=== PATIENT | male | born 1955 | race Caucasian/White ===

== ENCOUNTER 2019-04-17 10:37 | Day surgery (SDC) | payer BC ==
[2019-04-16 09:47] VITALS: BMI 25.3
[2019-04-17 11:54] LABS: #Eosinphils 0.1 thou/uL (0.0-0.7); #Lymphocytes 0.9 thou/uL (1.20-3.40); #Neutrophils 10.4 thou/uL (1.40-6.50); %Basophils 0.2 % (0.0-1.0); %Eosinophils 0.6 % (0.0-10.0); %Lymphocytes 6.9 % (21.0-51.0); %Neutrophils 84.2 % (42.0-75.0); Hemoglobin 15.4 g/dL (14.0-18.0); Mean Corpuscular HGB CONC 34.7 g/dL (32.0-36.0); Mean Corpuscular Hemoglobin 30.3 pg (27.0-31.0); Mean Corpuscular Volume 87.4 fL (78.0-98.0); Mean Platelet Volume 6.9 fL (7.4-10.4); Platelet Count 456 thou/uL (130-400); RBC Distribution Width 11.5 % (11.5-14.5); Red Blood Cell (RBC) Count 5.07 mill/uL (4.70-6.10); White Blood Cell (WBC) Count 12.4 thou/uL (4.8-10.8)
[2019-04-17] MEDS ORDERED: Ondansetron PF 4 MG/2 ML Vial ONE (11:59)
[2019-04-17] MEDS ORDERED: Ketorolac Tromethamine 30 MG/ML VIAL ONE (11:59)
[2019-04-17] MEDS ORDERED: Scopolamine 1.5 mg/72 hour Patch ONE (11:59)
[2019-04-17 12:14] LABS: Anion Gap 13 mmol/L (10-20); BUN (Urea Nitrogen) 20 mg/dL (8.4-25.7); Calc. Creatinine Clearance 106 mL/min (70-130); Calcium 9.3 mg/dL (7.8-10.44); Carbon Dioxide 28 mmol/L (23-31); Chloride 95 mmol/L (98-107); Estimated GFR-MDRD 88; Glucose 174 mg/dL (80-115); Potassium 3.3 mmol/L (3.5-5.1); Sodium 133 mmol/L (136-145)
[2019-04-17] MEDS ORDERED: Lidocaine 1% (PF) 30 ML VIAL ONE (13:07)
[2019-04-17] MEDS ORDERED: Bupivacaine/Epinephrine 0.25% 30 ML VIAL ONE (13:07)
[2019-04-17] MEDS ORDERED: Propofol 500 MG/50 ML VIAL ONE (13:15)
[2019-04-17] MEDS ORDERED: Fentanyl 100 MCG/2 ML VIAL ONE (13:15)
[2019-04-17] MEDS ORDERED: Midazolam HCl 2 mg/2 ml Vial ONE (13:15)
--- NOTE | 2019-04-17 14:29 | RAD ---
Chest one view HISTORY: Mediport placement. FINDINGS: No comparison. Cardiac silhouette is magnified by projection. Pulmonary vasculature accentu ated by shallow inspiration. Tip of a right subclavian Mediport projects over the cavoatrial junction. No evidence of pneumothorax. Ill-defined parenchymal opacity overlies the right posterior s uprahilar level. Possible atelectasis at the left posterior lung base. IMPRESSION: Right subclavian Mediport in good radiographic position without evidence of complication. Bilateral parenchymal opacities. Infiltrate versus atelectasis. Consider short-term radiographic foll ow-up with upright PA and lateral views of the chest when patient can undergo that exam.
[2019-04-17] MEDS ORDERED: PROPOFOL 200 MG/20 ML VIAL ONE (16:20)
[2019-04-17] MEDS ORDERED: Lidocaine 1% PF 5 ML VIAL ONE (16:20)
--- NOTE | 2019-04-20 13:50 | OP ---
DATE OF PROCEDURE: 04/17/2019 PREOPERATIVE DIAGNOSIS: Metastatic gastric cancer. POSTOPERATIVE DIAGNOSIS: Metastatic gastric cancer. PROCEDURE PERFORMED: Placement of a right subclavian power compatible MediPort. ANESTHESIA: General endotracheal. INDICATIONS: The patient is a 64-year-old white male. He has metastatic unresectable gastric cancer. He presents at this time for MediPort placement for chemotherapy administration. DESCRIPTION OF OPERATION: Informed consent was obtained. The patient was taken to the operating room where total intravenous anesthesia was obtained with the patient in supine position. Right periclavicular area was prepped with ChloraPrep and draped in sterile fashion. Local anesthetic was infiltrated and a large-gauge needle was passed under the clavicle in the subclavian vein. Guidewire was passed through the needle and fluoroscopically confirmed to enter the superior vena cava. Additional local anesthetic was infiltrated and transverse incision was created based on needle insertion site. A subcutaneous pocket was dissected inferiorly. Introducer dilator was passed over the guidewire under fluoroscopic guidance. The guidewire and dilator were removed, and the catheter was passed through the introducer. The tip of the catheter was positioned at the atriocaval junction and the catheter was trimmed to the appropriate length and secured to the locking hub of the MediPort. The port was then placed in the subcutaneous pocket where it was secured to the pectoral fascia with 2 interrupted sutures of 3-0 Prolene. The incision was then closed in layers with 3-0 and 4-0 Monocryl. Additional local anesthetic was infiltrated. The port was cannulated with a Tejeda needle and it aspirated blood freely and was flushed with heparinized saline. Dermabond was placed externally on the skin incision. There were no complications. Blood loss was negligible. The patient tolerated the procedure well and was taken to recovery room in stable condition. FINDINGS: I placed a low-profile power compatible MediPort in the right subclavian vein. The procedure was uneventful. Fluoroscopy was used during the placement. There was essentially no blood loss. Job ID: [id number]
== END 2019-04-17 15:15 | disposition home or self-care (01) ==
LOC: SDC 10:37
PROVIDERS: ATTEND Specialist
PROC: 02HV33Z Insertion of Infusion Device into Superior Vena Cava, Percutaneous Approach (ICD-10-PCS; principal; 2019-04-17)
DX: C16.9 Malignant neoplasm of stomach, unspecified (principal); C79.9 Secondary malignant neoplasm of unspecified site; M19.90 Unspecified osteoarthritis, unspecified site; I10 Essential (primary) hypertension; G47.30 Sleep apnea, unspecified; E11.9 Type 2 diabetes mellitus without complications; Z79.84 Long term (current) use of oral hypoglycemic drugs; Z79.899 Other long term (current) drug therapy; Z88.5 Allergy status to narcotic agent
CPT/HCPCS: 36415; 71045; 80048; 85025; 93005; 93010; C1788; J0131; J0690; J1642; J1885; J2001; J2250; J2405; J2704; J3010

== ENCOUNTER 2019-04-25 13:43 | Emergency (ER) | payer BC ==
[2019-04-25] MEDS ORDERED: Ondansetron PF 4 MG/2 ML Vial ONE (14:35)
== END 2019-04-25 16:11 | disposition home or self-care (01) ==
LOC: SCSER 13:43
DX: E86.0 Dehydration (principal); R11.2 Nausea with vomiting, unspecified; I10 Essential (primary) hypertension; Z79.899 Other long term (current) drug therapy
CPT/HCPCS: 96361; 96374; J2405

== ENCOUNTER 2019-05-09 22:18 | Inpatient (IN) | payer BC ==
[2019-05-09] MEDS ORDERED: Ondansetron PF 4 MG/2 ML Vial ONE (23:03)
[2019-05-09 23:11] LABS: ALT (SGPT) 30 U/L (8-55); AST (SGOT) 26 U/L (5-34); Albumin 3.5 g/dL (3.4-4.8); Alkaline Phosphatase 94 U/L (40-150); Anion Gap 19 mmol/L (10-20); BUN (Urea Nitrogen) 25 mg/dL (8.4-25.7); Bilirubin, Total 0.9 mg/dL (0.2-1.2); Calc. Creatinine Clearance 0 mL/min (70-130); Calcium 9.3 mg/dL (7.8-10.44); Carbon Dioxide 22 mmol/L (23-31); Chloride 102 mmol/L (98-107); Estimated GFR-MDRD Greater than 90; Globulin 3.1 g/dL (2.4-3.5); Glucose 203 mg/dL (80-115); Lipase 54 U/L (8-78); Potassium 4.4 mmol/L (3.5-5.1); Protein, Total 6.6 g/dL (5.8-8.1); Sodium 139 mmol/L (136-145)
[2019-05-09 23:12] LABS: #Basophils 0.1 thou/uL (0.0-0.2); #Lymphocytes 0.7 thou/uL (1.20-3.40); #Monocytes 0.7 thou/uL (0.11-0.59); %Basophils 0.8 % (0.0-1.0); %Eosinophils 0.1 % (0.0-10.0); %Lymphocytes 6.3 % (21.0-51.0); %Neutrophils 85.8 % (42.0-75.0); Hemoglobin 14.7 g/dL (14.0-18.0); Mean Corpuscular HGB CONC 33.7 g/dL (32.0-36.0); Mean Corpuscular Hemoglobin 29.2 pg (27.0-31.0); Mean Corpuscular Volume 86.6 fL (78.0-98.0); Mean Platelet Volume 6.1 fL (7.4-10.4); Platelet Count 372 thou/uL (130-400); RBC Distribution Width 12.2 % (11.5-14.5); Red Blood Cell (RBC) Count 5.04 mill/uL (4.70-6.10); White Blood Cell (WBC) Count 10.5 thou/uL (4.8-10.8)
[2019-05-09] MEDS ORDERED: Promethazine HCl 25 MG/ML VIAL ONE (23:42)
[2019-05-09] MEDS ORDERED: Haloperidol Lactate 5 MG/ML VIAL ONE (23:53)
[2019-05-10] MEDS ORDERED: Ondansetron PF 4 MG/2 ML Vial IVP PRN ×5 (01:32→15:00)
[2019-05-10] MEDS ORDERED: Ondansetron ODT 4 MG TAB SL PRN (01:32)
[2019-05-10] MEDS ORDERED: Promethazine HCl 25 MG/ML VIAL IM/IV PRN ×3 (01:40→14:17)
[2019-05-10] MEDS ORDERED: Sodium Chloride 0.9% 1,000 ML IV SCH (01:45)
[2019-05-10] MEDS ORDERED: Dextrose 5% in Water 1,000 ML IV PRN (01:59)
[2019-05-10] MEDS ORDERED: Dextrose 50% Abboject 50 ML SYRINGE SLOW IVP PRN (01:59)
--- NOTE | 2019-05-10 02:08 | PDOC.EVN ---
Event Note - Event Note Event Note: [id number] H&P dictated
[2019-05-10] MEDS: Metoclopramide HCl 10 MG/2 ML VIAL IVP PRN ×3 (02:12→20:51)
[2019-05-10] MEDS: Dextrose 5 % And 0.9 % NaCl 1,000 ML IV SCH ×4 (02:12→23:30)
--- NOTE | 2019-05-10 02:47 | HP ---
CHIEF COMPLAINT: Intractable vomiting. HISTORY OF PRESENT ILLNESS: Mr. Ernandez is a 64-year-old male who was recently diagnosed with gastric cancer on chemotherapy, second round, presented to emergency room with chief complaint of vomiting for the last 3 days after his second course of chemotherapy for stage IV stomach cancer on Saturday. He denies fevers, chills, diarrhea, or worsening of his abdominal pain. In spite of treatment in the ED with Phenergan, Zofran, Haldol, the patient continues to vomit. The patient appears to be dehydrated. The patient is being admitted to the hospital for further management. PAST MEDICAL HISTORY: 1. Stomach cancer. 2. Hypertension. 3. Diabetes mellitus, type 2. PAST SURGICAL HISTORY: 1. Foot surgery. 2. Knee surgery. 3. Toe surgery. SOCIAL HISTORY: Denies smoking, alcohol drinking, or drug abuse. ALLERGIES: ALLERGIC TO DEMEROL. HOME MEDICATIONS: Please see home medication reconciliation form for updated medications. FAMILY HISTORY: Reviewed and noncontributory. REVIEW OF SYSTEMS: Review of 14 systems negative except what is mentioned in the history of present illness. PHYSICAL EXAMINATION: GENERAL: The patient is awake, alert, in moderate to severe distress secondary to nausea and vomiting. VITAL SIGNS: Blood pressure 140/90, pulse is 120, respiratory rate is 20, temperature 98.8. HEAD AND NECK: Normocephalic, atraumatic. Neck is supple. No JVD. CHEST: Fair bilateral air entry. ABDOMEN: Soft with mild epigastric tenderness, bowel sounds present. NEUROLOGIC: Awake, alert, oriented x3. PSYCH: Unable to assess. EXTREMITIES: No clubbing, no cyanosis. LABORATORY DATA: WBC 10.5, hemoglobin 14.7, platelets 272. Sodium 139, potassium 4.4, chloride 102, CO2 of 22, glucose 203, BUN 25, creatinine 0.8. ASSESSMENT: Mr. Ernandez is a 64-year-old male with gastric cancer on second round of chemotherapy, presenting with 2-day history of nausea and vomiting. 1. Intractable nausea and vomiting. 2. Gastric cancer on chemotherapy. 3. Hypertension. 4. Diabetes type 2 with hypoglycemia. PLAN: 1. Admit. 2. IV fluid hydration. 3. Symptomatic management for nausea and vomiting. 4. We will monitor and control blood glucose. 5. Reconcile home medications. 6. DVT prophylaxis, SCD/early ambulation. 7. Expected length of stay at least one midnight if the patient is stable and able to tolerate p.o. Job ID: [id number]
[2019-05-10] MEDS: HYDROcodone/Acetaminophen 10/325 mg Tablet PO PRN ×2 (03:12→13:55)
[2019-05-10 05:23] LABS: Anion Gap 13 mmol/L (10-20); BUN (Urea Nitrogen) 24 mg/dL (8.4-25.7); Calc. Creatinine Clearance 119 mL/min (70-130); Calcium 8.4 mg/dL (7.8-10.44); Carbon Dioxide 23 mmol/L (23-31); Chloride 103 mmol/L (98-107); Estimated GFR-MDRD Greater than 90; Glucose 199 mg/dL (80-115); Potassium 3.7 mmol/L (3.5-5.1); Sodium 135 mmol/L (136-145)
[2019-05-10] MEDS: Morphine 2 MG/ML SYRINGE SLOW IVP PRN ×2 (06:29→11:59)
[2019-05-10] MEDS: HumaLOG 300 UNITS/3 ML VIAL SC PRN ×3 (06:29→19:06)
[2019-05-10] MEDS: Famotidine/PF 20 mg/2ml Vial SLOW IVP SCH ×2 (08:59→20:51)
[2019-05-10] MEDS ORDERED: Prevnar 13-Val Conj/PF 0.5 ML SYRINGE IM ONE (09:00)
[2019-05-10] MEDS ORDERED: Baclofen 10 MG TAB PO PRN (11:58)
[2019-05-10] MEDS ORDERED: Sucralfate 1 GM TAB PO PRN (11:58)
[2019-05-10] MEDS ORDERED: Haloperidol Lactate 5 MG/ML VIAL IM PRN (12:06)
[2019-05-10] MEDS ORDERED: Fentanyl 100 MCG/2 ML VIAL SLOW IVP PRN (12:14)
[2019-05-10] MEDS ORDERED: diphenhydrAMINE 50 MG/ML VIAL IM PRN ×2 (14:23→15:00)
[2019-05-10] MEDS ORDERED: Naloxone HCl 0.4 mg/ml Vial IV PRN ×2 (14:23→15:00)
[2019-05-10] MEDS ORDERED: Zolpidem Tartrate 5 MG TAB PO PRN ×2 (14:23→15:00)
[2019-05-10] MEDS ORDERED: Promethazine HCl 25 MG/ML VIAL IM PRN ×2 (14:23→15:00)
[2019-05-10] MEDS ORDERED: diphenhydrAMINE 50 MG/ML VIAL IVP PRN ×2 (14:23→15:00)
[2019-05-10] MEDS ORDERED: diphenhydrAMINE 25 MG CAP PO PRN ×2 (14:23→15:00)
[2019-05-10] MEDS ORDERED: Dexamethasone 10 MG/ML VIAL SLOW IVP SCH (14:25)
[2019-05-10] MEDS ORDERED: Communication Order-Pharmacy FS SCH ×2 (14:30→15:00)
[2019-05-10] MEDS: Lidocaine 5% Patch TD SCH (15:13)
[2019-05-10] MEDS ORDERED: Fentanyl 100 MCG/2 ML VIAL SLOW IVP SCH (15:15)
[2019-05-10] MEDS: fentaNYL Citrate/PF 2,000 MCG in Sodium Chloride 0.9% 60 ML IV PRN (15:43)
[2019-05-10] MEDS ORDERED: Scopolamine 1.5 mg/72 hour Patch TOP SCH (21:00)
[2019-05-10] MEDS: Promethazine HCl 25 MG in Sodium Chloride 0.9% 50 ML IVPB PRN (21:48)
[2019-05-11] MEDS: Lidocaine Patch Removal 1 EACH TOP SCH (02:58)
[2019-05-11] MEDS: Dextrose 5 % And 0.9 % NaCl 1,000 ML IV SCH ×4 (03:25→23:59)
[2019-05-11] MEDS: HumaLOG 300 UNITS/3 ML VIAL SC PRN ×2 (05:56→11:35)
[2019-05-11] MEDS: Promethazine HCl 25 MG in Sodium Chloride 0.9% 50 ML IVPB PRN ×3 (05:56→18:19)
[2019-05-11] MEDS: Metoclopramide HCl 10 MG/2 ML VIAL IVP PRN ×2 (07:48→20:16)
[2019-05-11] MEDS: Famotidine/PF 20 mg/2ml Vial SLOW IVP SCH ×2 (07:48→21:16)
[2019-05-11] MEDS ORDERED: Lisinopril/Hydrochlorothiazide 20/25 mg Tablet PO SCH (09:00)
[2019-05-11] MEDS: Ondansetron PF 4 MG/2 ML Vial SLOW IVP PRN ×3 (09:22→23:02)
[2019-05-11] MEDS ORDERED: hydrALAZINE 20 MG/ML VIAL SLOW IVP PRN (14:14)
--- NOTE | 2019-05-11 14:55 | RAD ---
EXAM: CHEST ONE VIEW HISTORY: Hypoxia COMPARISON: 04/17/2019 FINDINGS: Right subclavian Mediport catheter remains in place and unchanged in position. Bronchovascular markin gs are accentuated due to shallow depth inspiration and portable technique. There is evidence of a small left pleural effusion and associated atelectasis. Atelectasis is also present at the right lung base. Increased perihilar interstitial densities may be related to the depth of inspiration; although, an element of pulmonary edema cannot be entirely excluded. Cardiac silhouette is partially obscured due to small left pleural effusion and depth of inspiration but is overall stable from prior exam. No other interval change. IMPRESSION: 1. Small left pleural effusion and atelectasis. 2. Atelectasis right lung base. 3. Prominence of the perihilar interstitial densities most likely attributable to accentuation of the bronchovascular markings due to a shallow depth of inspiration. An element of mild pulmonary edema cannot be entirely excluded.
[2019-05-11] MEDS: Lidocaine 5% Patch TD SCH (15:44)
--- NOTE | 2019-05-11 16:32 | PDOC.HOSPP ---
- Subjective Encounter Date: 05/11/19 Encounter Time: 14:30 Subjective: Patient seen and examined for N/V with intractable pain. On [facility] OFFICE. Nausea +. No new complaints. No overnight events - Objective Vital Signs & Weight: Vital Signs (12 hours) Temp Pulse Resp BP Pulse Ox 05/11/19 14:10 97.5 F L 115 H 20 133/87 87 L 05/11/19 11:01 98.6 F 114 H 20 138/98 H 93 L 05/11/19 08:18 98 F 117 H 20 136/88 92 L 05/11/19 08:15 115 H Weight Admit Weight 201 lb Weight 201 lb 11.2 oz I&O: 05/10/19 05/11/19 05/12/19 06:59 06:59 06:59 Intake Total 3405 53 Output Total 900 500 Balance 2505 447 Result Diagrams: 05/09/19 22:46 05/10/19 04:33 Additional Labs: Accuchecks 05/11/19 05/11/19 05/10/19 11:06 05:32 17:17 POC Glucose 182 H 201 H 188 H Radiology Reviewed by me: Yes (CXR - B/L atelectasis) Hospitalist ROS - Review of Systems Respiratory: denies: cough, dry, shortness of breath, hemoptysis, SOB with excertion, pleuritic pain, sputum, wheezing, other Cardiovascular: denies: chest pain, palpitations, orthopnea, paroxysmal noc. dyspnea, edema, light headedness, other Gastrointestinal: reports: nausea - Medication Medications: Active Medications Generic Name Dose Route Start Last Admin Trade Name Freq PRN Reason Stop Dose Admin Baclofen 10 mg 05/10/19 11:58 05/10/19 13:55 Lioresal PO 10 mg TIDPRN PRN Administration Hiccups Famotidine 20 mg 05/10/19 09:00 05/11/19 07:48 Pepcid SLOW IVP 20 mg Q12HR ANDRÉS Administration Fentanyl Citrate 2,000 mcg/ 100 mls @ 0 mls/hr 05/10/19 15:00 05/10/19 15:43 Sodium Chloride IV 100 mls INF PRN Administration Pain As Directed Promethazine HCl 25 mg/ Sodium 51 mls @ 204 mls/hr 05/10/19 20:27 05/11/19 12 :17 Chloride IVPB 51 mls Q6H PRN Administration Nausea Insulin Human Lispro 0 units 05/10/19 01:59 05/11/19 11:35 Humalog SC 2 unit .MILD SLIDING SCALE PRN Administration Mild Correctional Scale Lidocaine 1 patch 05/10/19 15:00 05/11/19 15:44 Lidoderm 5% Patch TD 1 patch Q24H ANDRÉS Administration Metoclopramide HCl 10 mg 05/10/19 20:26 05/11/19 07:48 Reglan IVP 10 mg Q8H PRN Administration Abdominal Distention Miscellaneous Medication 1 each 05/11/19 03:00 05/11/19 02:58 Lidocaine Patch Removal TOP 1 each 0300 ANDRÉS Administration Ondansetron HCl 4 mg 05/10/19 14:23 05/10/19 17:53 Zofran IVP 4 mg Q6H PRN Administration Nausea/Vomiting Ondansetron HCl 4 mg 05/10/19 20:27 05/11/19 14:20 Zofran SLOW IVP 4 mg Q4H PRN Administration Nausea/Vomiting Pantoprazole Sodium 40 mg 05/11/19 09:00 05/11/19 08:15 Protonix PO Not Given DAILY ANDRÉS Promethazine HCl 12.5 mg 05/10/19 14:23 05/10/19 14:51 Phenergan IM 12.5 mg Q4H PRN Administration Nausea/Vomiting Scopolamine 1.5 mg 05/10/19 21:00 05/10/19 20:50 Transderm Scop TOP 1.5 mg Q3D ANDRÉS Administration - Exam General Appearance: ill appearing (in distress due to pain) Neck: supple, no JVD Heart: RRR, no gallops, no rubs, normal peripheral pulses Respiratory: CTAB, no wheezes, no rales, no ronchi Gastrointestinal: soft, non-distended, normal bowel sounds, tender to palpation (mild gen tenderness) Extremities: no edema Skin: no lesions Neurological: no new deficit Psychiatric: A&O x 3 Hosp A/P (1) N&V (nausea and vomiting) Code(s): R11.2 - NAUSEA WITH VOMITING, UNSPECIFIED Status: Acute Qualifiers: Vomiting Intractability: intractable (2) Intractable pain Code(s): R52 - PAIN, UNSPECIFIED Status: Acute (3) Moderate protein-calorie malnutrition Code(s): E44.0 - MODERATE PROTEIN-CALORIE MALNUTRITION Status: Acute (4) H/O malignant neoplasm of stomach Code(s): Z85.028 - PERSONAL HISTORY OF OTHER MALIGNANT NEOPLASM OF STOMACH Status: Chronic (5) Hyponatremia Code(s): E87.1 - HYPO-OSMOLALITY AND HYPONATREMIA Status: Acute (6) Acute hypoxemic respiratory failure Code(s): J96.01 - ACUTE RESPIRATORY FAILURE WITH HYPOXIA Status: Acute (7) HTN (hypertension) Code(s): I10 - ESSENTIAL (PRIMARY) HYPERTENSION Status: Chronic (8) DM2 (diabetes mellitus, type 2) Status: Chronic - Plan plan discussed w/ family, DVT proph w/SCDs Cont [facility] OFFICE for pain control Reduce IVF to 75 ml/hr Cont IS Cont Lidocaine patch O2 supplementation ?TPN AM labs Hold Lisinopril/HCTZ
[2019-05-11] MEDS: Lorazepam 2 MG/ML VIAL SLOW IVP PRN ×2 (17:41→23:57)
[2019-05-11] MEDS: Ondansetron HCl/PF 8 MG in Sodium Chloride 0.9% 50 ML IVPB SCH (17:44)
--- NOTE | 2019-05-11 22:58 | CON ---
DATE OF CONSULTATION: REASON FOR CONSULTATION: Metastatic gastric cancer. HISTORY OF PRESENT ILLNESS: Mr. Ernandez is a 64-year-old gentleman, who has metastatic gastric adenocarcinoma with peritoneal carcinomatosis. He received a second cycle of chemotherapy on May 05. He is on FOLFOX. On Saturday, he went for IV hydration. Over the weekend, he began to have severe nausea and vomiting. He was unable to take his pain medications and he has not eaten in several days. He presented to the emergency room and was admitted for dehydration. He has been given Phenergan, Zofran and Haldol for his nausea. He is currently on a fentanyl drip for pain. He is receiving IV fluids and his states he is slightly better today. PAST MEDICAL HISTORY: 1. Stage IV gastric cancer. 2. Diabetes. 3. High blood pressure. 4. Constipation secondary to narcotics. PAST SURGICAL HISTORY: EGD and EUS. ALLERGIES: DEMEROL. HOME MEDICATIONS: 1. Baclofen. 2. Hydrocodone. 3. Lisinopril. 4. Hydrochlorothiazide. 5. Metformin. 6. Zofran. 7. Protonix. 8. Sucralfate. FAMILY HISTORY: His father has a history of stomach cancer. SOCIAL HISTORY: , has 1 child. Lives with his spouse. No alcohol, tobacco, or illicit drug use. REVIEW OF SYSTEMS: CONSTITUTIONAL: No fever, chills, or night sweats. EYES: No blurred or double vision. ENT: No pain, hoarseness, or sore throat. Positive for dysphagia. CV: No chest pain, palpitations or syncope. RESPIRATORY: Positive for shortness of breath. No dyspnea on exertion, or orthopnea. GI: Positive for nausea, vomiting, abdominal pain, and constipation. : No dysuria, or hematuria. MUSCULOSKELETAL: Positive for back pain. SKIN: No rash or pruritus. HEMATOLOGICAL: No bleeding, bruising, or clotting. NEUROLOGICAL: Positive for weakness, fatigue. PHYSICAL EXAMINATION: VITAL SIGNS: Temperature is 97.5, pulse is 115, respiratory rate 20, blood pressure is 133/87. He is 87% on room air. GENERAL: Chronically ill-appearing male, in mild distress. HEENT: Normocephalic, atraumatic. Pupils are equal and reactive to light. NECK: Supple. CV: Regular rate and rhythm. He is tachycardic. LUNGS: Clear anterior. ABDOMEN: Slightly distended. Bowel sounds are positive. EXTREMITIES: No clubbing or cyanosis. SKIN: No rash. HEMATOLOGICAL: No petechiae or purpura. NEUROLOGICAL: The patient is slightly sedated, but answers appropriately. PERTINENT LABORATORY DATA AND X-RAYS: Current WBCs 10.5, hemoglobin 14.7, hematocrit 43.7, platelet count is 372,000. He has 85% neutrophils, 6% lymphocytes. Sodium is 135, potassium 3.7, chloride 108, CO2 is 23, BUN is 24, creatinine 0.81, calcium is 8.4, bilirubin is 0.9, AST is 26, ALT is 30, alkaline phosphatase is 94. Serum total protein is 6.6, albumin 3.5, globulin 3.1, lipase is 54. Chest x-ray shows small left pleural effusion and atelectasis. It shows atelectasis at the right lung base. ASSESSMENT: 1. Metastatic gastric cancer, status post cycle 2 of chemotherapy. 2. Dehydration. 3. Nausea, vomiting secondary to metastatic gastric cancer. DISCUSSION: The patient has had chronic nausea and vomiting secondary to his gastric mass, but did improve slightly after cycle 1. He is in his usual timeframe that he would have nausea from oxaliplatin. We will continue IV fluids and provide supportive care over the next 24 hours. Hopefully this will improve. We will continue Zofran IV scheduled and low-dose Ativan p.r.n. Case has been discussed with Dr. Whelan, who will follow and see the patient. Thank you for the consult. Job ID: [id number]
[2019-05-12] MEDS: Ondansetron HCl/PF 8 MG in Sodium Chloride 0.9% 50 ML IVPB SCH (01:11)
[2019-05-12] MEDS ORDERED: Sodium Chloride 0.9% 500 ML IV SCH (01:15)
--- NOTE | 2019-05-12 01:45 | PDOC.EVN ---
Event Note - Event Note Event Note: Patient tachycardic into the 130s; asymptomatic, EKG appears to be sinus tach. Discussed with Dr. Alonso, and will bolus the patient with IV NS 500 cc and continue to monitor. I saw and evaluated patient. He is lethargic which I suspect is medication related, but easily arousable and answering questions.
[2019-05-12] MEDS: Lidocaine Patch Removal 1 EACH TOP SCH (03:51)
[2019-05-12] MEDS: fentaNYL Citrate/PF 2,000 MCG in Sodium Chloride 0.9% 60 ML IV PRN (03:57)
[2019-05-12] MEDS: Promethazine HCl 25 MG in Sodium Chloride 0.9% 50 ML IVPB PRN (04:26)
[2019-05-12 05:57] LABS: #Lymphocytes 0.5 thou/uL (1.20-3.40); #Monocytes 0.3 thou/uL (0.11-0.59); #Neutrophils 1.8 thou/uL (1.40-6.50); %Eosinophils 1.2 % (0.0-10.0); %Monocytes 9.9 % (0.0-10.0); Hemoglobin 13.9 g/dL (14.0-18.0); Mean Corpuscular HGB CONC 33.5 g/dL (32.0-36.0); Mean Corpuscular Volume 89.5 fL (78.0-98.0); Mean Platelet Volume 6.8 fL (7.4-10.4); Platelet Count 288 thou/uL (130-400); RBC Distribution Width 12.1 % (11.5-14.5); Red Blood Cell (RBC) Count 4.62 mill/uL (4.70-6.10); White Blood Cell (WBC) Count 2.6 thou/uL (4.8-10.8)
[2019-05-12 06:14] LABS: ALT (SGPT) 30 U/L (8-55); AST (SGOT) 17 U/L (5-34); Albumin 3.5 g/dL (3.4-4.8); Alkaline Phosphatase 84 U/L (40-150); Anion Gap 11 mmol/L (10-20); BUN (Urea Nitrogen) 19 mg/dL (8.4-25.7); Bilirubin, Total 0.9 mg/dL (0.2-1.2); Calc. Creatinine Clearance 109 mL/min (70-130); Calcium 8.6 mg/dL (7.8-10.44); Carbon Dioxide 24 mmol/L (23-31); Chloride 106 mmol/L (98-107); Estimated GFR-MDRD 86; Globulin 2.5 g/dL (2.4-3.5); Glucose 224 mg/dL (80-115); Magnesium 2.1 mg/dL (1.6-2.6); Phosphorus 2.5 mg/dL (2.3-4.7); Potassium 3.8 mmol/L (3.5-5.1); Sodium 137 mmol/L (136-145)
[2019-05-12] MEDS: Lorazepam 2 MG/ML VIAL SLOW IVP PRN ×4 (06:15→20:00)
[2019-05-12] MEDS ORDERED: Nitroglycerin 0.4 MG TAB (25 Tab Bottle) PO PRN (07:04)
[2019-05-12] MEDS ORDERED: Diltiazem 125 MG in Sodium Chloride 0.9% 100 ML IVPB SCH (07:15)
[2019-05-12 07:25] LABS: Actual Bicarbonate (HCO3a) 21.3 mEq/L (22-28); Base Excess (BEa) -5.2 mEq/L (-2.0 to +3.0); CO2 Tension 44.8 mmHg (35.0-45.0); Carboxyhemoglobin (COHb) 1.5 gm% (0.0-3.0); Hemoglobin (Hb) 14.5 g/dL (14.0-18.0); O2 Tension (PaO2) 77.3 mmHg (> 80.0); Potassium - ABG Lab 3.89 mmol/L (3.70-5.30)
[2019-05-12] MEDS ORDERED: Midazolam HCl 2 mg/2 ml Vial ONE (07:34)
[2019-05-12] MEDS ORDERED: Propofol 1,000 MG/100 ML VIAL IV ONE (07:52)
[2019-05-12 08:08] LABS: Lactic Acid 3.3 mmol/L (0.5-2.2)
--- NOTE | 2019-05-12 08:15 | RAD ---
Portable supine frontal chest radiograph: 05/12/2019 COMPARISON: 05/11/2019 HISTORY: Shortness of breath FINDINGS: There is a new endotracheal tube in proper position. New nasogastric tube extends into the left upper quadrant. Stable right-sided Port-A-Cath. Hazy density overlies bilateral hemithoraces, left greater than right, suggesting bilateral pleural e ffusions. Nonspecific airspace disease noted in the perihilar regions and both lung bases. IMPRESSION: Lines and tubes as detailed above. Nonspecific extensive pleural and parenchymal opacity suggest pulmonary edema. Infection or aspiration cannot be excluded. Follow-up imaging to document resolution following treatment advised.
[2019-05-12] MEDS ORDERED: Dextrose 5 % And 0.9 % NaCl 1,000 ML IV SCH (08:16)
[2019-05-12] MEDS ORDERED: ABX RENAL DOSE IVPB PRN (08:42)
[2019-05-12] MEDS ORDERED: Sodium Chloride 0.9% 1,000 ML IV SCH ×2 (08:45→20:30)
[2019-05-12] MEDS ORDERED: Piperacillin/Tazobactam 3.375 GM in Sodium Chloride 0.9% 100 ML IVPB SCH (08:45)
[2019-05-12] MEDS ORDERED: Morphine 2 MG/ML SYRINGE SLOW IVP PRN (08:52)
[2019-05-12] MEDS ORDERED: Propofol BOLUS 1,000 MG/100 ML VIAL IV PRN (08:52)
[2019-05-12] MEDS ORDERED: Fentanyl BOLUS 250 ML IVPB PRN (08:59)
[2019-05-12] MEDS ORDERED: fentaNYL Citrate/PF 2,000 MCG in Sodium Chloride 0.9% 60 ML IV SCH (08:59)
[2019-05-12] MEDS ORDERED: Ventilator Sedation Protocol 1 EACH FS SCH ×2 (09:00)
[2019-05-12] MEDS ORDERED: Metoprolol Tartrate 25 MG TAB PO SCH (09:00)
--- NOTE | 2019-05-12 09:19 | PDOC.MOPN ---
Interval History: pt now sedated and intubated, this was somewhat acute event this morning. His states that he was doing better but last night the vomiting and hiccups got worse. This morning per the nurse's report, his heart rate got up to the 160 's and his breathing got worse. He desaturated on the floor and was transferred to the ICU and was intubated. It appears he aspirated. His states he had a bowel movement within the past 36 hours and was passing gas yesterday and was not sure if he had a BM. - Vital Signs Vital Signs: Vital Signs (12 hours) Temp Pulse Resp BP BP Pulse Ox 05/12/19 07:48 94 L 05/12/19 04:00 99.4 F 132 H 20 129/84 94 L 05/12/19 02:35 129 H 20 135/88 94 L 05/12/19 02:31 98 05/12/19 01:05 135 H 16 98 05/12/19 00:00 97.9 F 120 H 18 140/87 96 Weight Admit Weight 201 lb Weight 201 lb 11.2 oz - Physical Exam General: Other (sedated/intubated) HEENT: Atraumatic Lungs: Other (bilateral crackles) Cardiovascular: Other (tachycardic) Abdomen: Other (distended) Extremities: No clubbing Skin: No rashes - Labs Result Diagrams: 05/12/19 05:35 05/12/19 05:35 Lab results: Laboratory Results - last 24 hr 05/12/19 07:51: Lactic Acid 3.3 H 05/12/19 07:51: CK-MB (CK-2) 1.0, Troponin I 0.060 H 05/12/19 07:20: Specimen Type ARTERIAL, Puncture Site R.B., Bicarbonate Actual 21.3 L, ABG pH 7.30 L, ABG pCO2 44.8, ABG pO2 77.3, ABG O2 Sat Calc/Casey 94.5, ABG O2 Content 18.9, ABG Base Excess -5.2 L, ABG Hematocrit 43.0, ABG Hemoglobin 14.5, ABG Oxyhemoglobin 92.8 L, ABG Carboxyhemoglobin 1.5, ABG Methemoglobin 0.30, ABG Deoxyhemoglobin 5.4 H, Blaise Test NOT DONE, A-a O2 Gradient 579.700 H, Ionized Calcium 1.20, Mode of Support NRB, Inspired O2 100, Sodium 138, Potassium 3.89, Chloride 105 05/12/19 07:00: POC Glucose 194 H 05/12/19 05:36: POC Glucose 188 H 05/12/19 05:35: WBC 2.6 L, RBC 4.62 L, Hgb 13.9 L, Hct 41.3 L, MCV 89.5, MCH 30.0, MCHC 33.5, RDW 12.1, Plt Count 288, MPV 6.8 L, Neutrophils % 69.0, Lymphocytes % 20.0 L, Monocytes % 9.9, Eosinophils % 1.2, Basophils % 0.0, Neutrophils # 1.8, Lymphocytes # 0.5 L, Monocytes # 0.3, Eosinophils # 0.0, Basophils # 0.0 05/12/19 05:35: Sodium 137, Potassium 3.8, Chloride 106, Carbon Dioxide 24, Anion Gap 11, BUN 19, Creatinine 0.89, Estimated GFR (MDRD) 86, Glucose 224 H, Calcium 8.6, Phosphorus 2.5, Magnesium 2.1, Total Bilirubin 0.9, AST 17, ALT 30 , Alkaline Phosphatase 84, Serum Total Protein 6.0, Albumin 3.5, Globulin 2.5, Albumin/Globulin Ratio 1.4 05/12/19 00:04: POC Glucose 181 H 05/11/19 16:28: POC Glucose 173 H 05/11/19 11:06: POC Glucose 182 H A/P - Problem (1) Aspiration into airway Current Visit: Yes Code(s): T17.908A - UNSP FB IN RESP TRACT, PART UNSP CAUSING OTH INJURY, INIT Status: Acute (2) Acute hypoxemic respiratory failure Current Visit: Yes Code(s): J96.01 - ACUTE RESPIRATORY FAILURE WITH HYPOXIA Status: Acute (3) N&V (nausea and vomiting) Current Visit: Yes Code(s): R11.2 - NAUSEA WITH VOMITING, UNSPECIFIED Status : Acute Qualifiers: Vomiting Intractability: intractable (4) H/O malignant neoplasm of stomach Current Visit: Yes Code(s): Z85.028 - PERSONAL HISTORY OF OTHER MALIGNANT NEOPLASM OF STOMACH Status: Chronic - Plan Plan: * appreciate pulm support * follow cbc, he may become neutropenic and if so we will start neupogen * he has metastatic incurable disease, i discussed this with his family and he was aware of this prior to treatment but was responding after 1 cycle of chemo * if he survives this event he may not be a candidate for more treatment, we discussed this today * IV abx * he is a set up for bowel obstruction with metastatic gastric cancer and peritoneal carcinomatosis, he has NGT in place * will follow with you, prognosis poor and family aware
[2019-05-12] MEDS: Piperacillin/Tazobactam 3.375 GM in Sodium Chloride 0.9% 100 ML IVPB SCH ×3 (10:05→22:46)
[2019-05-12] MEDS: Pantoprazole 40 MG VIAL IVP SCH (10:05)
[2019-05-12] MEDS: Aspirin 300 MG Suppository PR SCH (10:05)
--- NOTE | 2019-05-12 10:42 | CON ---
DATE OF CONSULTATION: 05/12/2019 SERVICE: Pulmonary Medicine. REASON FOR CONSULT: Respiratory failure. HISTORY OF PRESENT ILLNESS: The patient is a 64-year-old white male with recent diagnosis of gastric cancer. Ultimately, he underwent one round of chemotherapy and was putting on some weight and feeling a little bit better. He got the second round of chemotherapy, which induced severe nausea and vomiting. He presented to the Emergency Department because of intractable nausea and vomiting and also severe pain. He was given some significant pain medication. Ultimately, these pain medication doses were escalated. He developed increasing respiratory failure. He was short of breath and tachypneic. He is visibly uncomfortable. The code deepali was called, he was brought immediately to the ICU. I was not on-call, but I was immediately available in the area and I was asked to help out. As such, I provided my assistance. He was unable to have a conversation. He had one word conversational dyspnea. He had retractions and was struggling to catch his breath. We did a stat ABG, which demonstrated he had severe hypoxic failure because he was on a nonrebreather during the ABG. He also was falling behind on his drive to breathe. He had an acidosis with inappropriate compensation. His abdomen was fully distended. As such, we elected to intubate him. He had a tachyarrhythmia at 170s. That being said, his blood pressure was preserved. It is not clear what happened, but my presumption is that he had an aspiration related event resulting in his sudden change in condition. This was likely unwitnessed. Then, once he got to the ICU, and we intubated him, there was a very significant aspiration event of feculent material. PAST MEDICAL HISTORY: 1. Gastric cancer, new diagnosis. 2. Hypertension. 3. Type 2 diabetes mellitus. PAST SURGICAL HISTORY: 1. Foot surgery. 2. Knee surgery. 3. Toe surgery. ALLERGIES: DEMEROL. MEDICATIONS: List of his inpatient medications was reviewed and heavily updated. SOCIAL HISTORY: Negative for alcohol, tobacco, or illicit drug use. FAMILY HISTORY: Noncontributory. REVIEW OF SYSTEMS: This cannot be obtained as the patient is nearly obtunded and has one word conversational dyspnea. PHYSICAL EXAMINATION: VITAL SIGNS: Afebrile, currently with a T-max of 99.4, heart rate 160, blood pressure 171/95, respirations 28, and saturation 94% on nonrebreather. GENERAL: The patient is in severe respiratory distress with retractions. He seems to be a little obtunded. HEENT: Normocephalic and atraumatic. Sclerae white. Conjunctivae pink. Oral mucosa is moist without lesions. LUNGS: Extensive rhonchi are present prior to intubation. They persist after intubation. There is no prolonged expiratory phase. I do not hear any wheezing or crackles. HEART: Tachycardic. Regular. ABDOMEN: Completely distended. Bowel sounds are absent. There is tenderness to palpation, but no rebound present. MUSCULOSKELETAL: No cyanosis or clubbing. There is no pitting in the bilateral lower extremities, though he does have some skin tenting. : Avendaño catheter is now in place. NEUROLOGIC: Encephalopathic, but otherwise nonfocal. LABORATORY DATA: WBC 2.6 and downtrending, hemoglobin 13.9, and platelets 288, 000. His differential remains normal. A pH of 7.30, pCO2 of 45, pO2 of 77 on nonrebreather. Basic metabolic profile and liver function studies are otherwise unremarkable. Troponin is 0.06. Lactate 3.3. IMAGING STUDIES: Chest x-ray demonstrates interval intubation. There is bilateral infiltrates now present, which were not previously there. Enteric catheter courses midline below the level of the diaphragm. There is a [id number] in the right subclavian region. ASSESSMENT: 1. Acute hypoxic respiratory failure. 2. Severe sepsis. 3. Healthcare-associated pneumonia secondary to gross aspiration event. 4. Gastric cancer with ileus versus obstruction. 5. Diabetes mellitus. DISCUSSION AND PLAN: We are going to get an upright KUB. He has already been intubated. We did a bronchoscopy. This demonstrated significant amounts of feculent material that I was able to remove from the lung. This stuff that was in the lung, likely it was exacerbated by the intubation process, but my suspicion is that aspiration event was brought him to the ICU to begin with. NG-tube has been placed, and is on suction. Once things stabilize, if he does not suffer an acute kidney injury, we will move forward with a CT of the abdomen and pelvis with contrast. Empiric antibiotics directed at aspiration organisms will be initiated (Zosyn). Pulmonary/Critical Care will follow very closely while this patient remains in the ICU. CRITICAL CARE TIME: 120 minutes. Job ID: [id number] MTDD
--- NOTE | 2019-05-12 10:54 | CON ---
DATE OF CONSULTATION: 05/12/2019 REQUESTING PHYSICIAN: Dr. Baker. REASON FOR CONSULTATION: Gastric cancer with aspiration. 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 Evidently, he was worked up initially at [facility] [address] in [place]. Dr. Cardona performed EGD and EUS. I do not have any of those reports. This is how the tissue diagnosis was made. The patient was subsequently seen at [facility]. I do not have any of those records either. He was subsequently seen by Dr. Whelan. He has undergone a cycle of chemotherapy with FOLFOX and it started second cycle on May 05. He has had some persistent nausea through this time, but has been able to take n.p.o. nutrition and medications up until now. However, over the weekend, the nausea and vomiting became much more severe. Note, he has been on narcotics for pain as well. He was admitted to the hospital a couple of days ago. Last night, the patient unfortunately had an episode of large volume feculent emesis and witnessed aspiration. He became tachycardic and hypotensive. He was transferred to the ICU. He had an emergent bronchoscopy with suctioning out of aspirate. He is currently endotracheally intubated, remains tachycardic, now on antibiotics. PAST MEDICAL HISTORY: 1. Stage IV gastric adenocarcinoma with peritoneal carcinomatosis. 2. Diabetes. 3. Hypertension. 4. Constipation secondary to narcotics. PAST SURGICAL HISTORY: EGD and EUS in March 2019 at [facility] [place]. ALLERGIES: DEMEROL. HOME MEDICATIONS: 1. Baclofen. 2. Hydrocodone. 3. Lisinopril/hydrochlorothiazide. 4. Metformin. 5. Zofran. 6. Protonix. 7. Sucralfate. FAMILY HISTORY: His father had stomach cancer. SOCIAL HISTORY: No alcohol, tobacco, or drug use. REVIEW OF SYSTEMS: Unable to obtain as the patient is sedated and intubated. PHYSICAL EXAMINATION: VITAL SIGNS: Temperature 99.4, pulse 138, blood pressure 96/65, and 94% oxygen saturation on ventilator. GENERAL: Critically ill, sedated and intubated. SKIN: No jaundice. No rashes were palpable. HEENT: Eyes, no scleral icterus. ENT, the patient is endotracheally intubated. HEART: Regular, tachycardia. LUNGS: Bibasilar crackles on ventilator. ABDOMEN: Mild distention. The abdomen is firm, does not withdraw to palpation. Bowel sounds are absent throughout. EXTREMITIES: No peripheral edema. VESSELS: Radial pulses 2+ bilaterally. NEUROLOGIC: The patient is sedated. LABORATORY STUDIES: WBC 2.6, hemoglobin 13.9, platelets 288. Sodium 137, potassium 3.8, BUN 19, creatinine 0.89. Lactic acid 3.3. Troponin 0.06. Total bilirubin 0.9, alkaline phosphatase 84, AST 17, ALT 30, albumin 3.5, lipase 54, and CEA 2.17. IMAGING STUDIES: Chest x-ray shows extensive pleural and parenchymal opacity suggestive of pulmonary edema, possible aspiration versus pneumonia. ASSESSMENT AND PLAN: 1. Stage IV gastric adenocarcinoma with peritoneal carcinomatosis, on FOLFOX chemotherapy. 2. Intractable nausea and vomiting. 3. Aspiration, witnessed overnight. This is a difficult situation. I do not think consideration of PEG tube or other enteral feeding is going to be beneficial in his case, and in fact, the family states that this was recommended against at [facility]. I am not sure of the specific involvement, how much of his stomach is involved with this adenocarcinoma, the extent of his peritoneal carcinomatosis, etc. We will make attempts to get his recent imaging particularly EUS and any CT findings for my review. Dr. Ferguson is planning on another CT of the abdomen tomorrow and I think this is reasonable. There is not much to be done at this point from a GI standpoint aside from continuing supportive care. I am not sure endoscopy is going to be valuable at this time. From a nutrition standpoint, obviously if he is unable to tolerate significant oral intake in the next several days, parenteral nutrition would have to be considered. GI can follow along. Thank you for the consultation. Please call anytime with questions or concerns. Job ID: [id number]
[2019-05-12 11:03] LABS: Actual Bicarbonate (HCO3a) 19.8 mEq/L (22-28); Base Excess (BEa) -3.4 mEq/L (-2.0 to +3.0); CO2 Tension 30.5 mmHg (35.0-45.0); Calcium, Ionized 1.15 mmol/L (1.12-1.30); Carboxyhemoglobin (COHb) 1.3 gm% (0.0-3.0); Hemoglobin (Hb) 13.4 g/dL (14.0-18.0); O2 Tension (PaO2) 64.8 mmHg (> 80.0); Potassium - ABG Lab 3.57 mmol/L (3.70-5.30); pH, Arterial 7.43 (7.35-7.45)
--- NOTE | 2019-05-12 11:07 | RAD ---
SUPINE ABDOMEN: INDICATIONS: Bowel obstruction. Vomiting. FINDINGS: The NG tube is in place with the tip overlying the left upper quadrant. Scattered stool and gas are seen in the colon. There are scattered gas filled loops of small bowel, which appear nonspecific. No mass effect or abnormal calcification. IMPRESSION: Nonspecific bowel gas pattern. POS: OFF
[2019-05-12 11:12] LABS: ALV-art Gradient 545.905 (0-20)
--- NOTE | 2019-05-12 13:37 | PDOC.HOSPP ---
- Subjective Encounter Date: 05/12/19 Encounter Time: 07:00 Subjective: Patient seen and examined during code green. Patient in significant resp distres. Gen pain. No CP. Overnight events noted. - Objective Vital Signs & Weight: Vital Signs (12 hours) Temp Pulse Resp BP BP BP Pulse Ox 05/12/19 13:28 140 H 88/64 L 05/12/19 13:23 143 H 35 H 94 L 05/12/19 08:46 134 H 87/63 L 05/12/19 07:48 94 L 05/12/19 07:40 145 H 101/74 05/12/19 04:00 99.4 F 132 H 20 129/84 94 L 05/12/19 02:35 129 H 20 135/88 94 L 05/12/19 02:31 98 Weight Admit Weight 201 lb Weight 201 lb 11.2 oz Most Recent Monitor Data Heart Rate from ECG 133 NIBP 87/63 NIBP BP-Mean 70 Respiration from ECG 23 SpO2 94 I&O: 05/11/19 05/12/19 05/13/19 06:59 06:59 06:59 Intake Total 3405 680 Output Total 900 1180 Balance 2505 -500 Result Diagrams: 05/12/19 05:35 05/12/19 05:35 Additional Labs: Accuchecks 05/12/19 05/12/19 05/12/19 07:00 05:36 00:04 POC Glucose 194 H 188 H 181 H 05/11/19 16:28 POC Glucose 173 H Laboratory Tests 05/12/19 05/12/19 07:51 10:06 Lactic Acid 3.3 H Troponin I 0.155 H Radiology Reviewed by me: Yes (CXR - Pulm edema) EKG Reviewed by me: Yes () Hospitalist ROS - Review of Systems ROS unobtainable: due to mental status - Medication Medications: Active Medications Generic Name Dose Route Start Last Admin Trade Name Freq PRN Reason Stop Dose Admin Albuterol/Ipratropium 3 ml 05/12/19 13:00 05/12/19 13:23 Duoneb NEB 3 ml [id number] ANDRÉS Administration Aspirin 300 mg 05/12/19 09:00 05/12/19 10:05 Aspirin MD 300 mg DAILY ANDRÉS Administration Baclofen 10 mg 05/10/19 11:58 05/10/19 13:55 Lioresal PO 10 mg TIDPRN PRN Administration Hiccups Promethazine HCl 25 mg/ Sodium 51 mls @ 204 mls/hr 05/10/19 20:27 05/12/19 04 :26 Chloride IVPB 51 mls Q6H PRN Administration Nausea Piperacillin Sod/Tazobactam 100 mls @ 200 mls/hr 05/12/19 09:00 05/12/19 10: 05 Sod 3.375 gm/ Sodium Chloride IVPB 100 mls 0300,0900,1500,2100 ANDRÉS Administration Insulin Human Lispro 0 units 05/10/19 01:59 05/11/19 11:35 Humalog SC 2 unit .MILD SLIDING SCALE PRN Administration Mild Correctional Scale Lorazepam 0.5 mg 05/11/19 16:29 05/12/19 06:15 Ativan SLOW IVP 0.5 mg Q6H PRN Administration Anxiety/Agitation Lorazepam 2 mg 05/12/19 08:52 05/12/19 10:04 Ativan SLOW IVP 06/11/19 08:52 2 mg Q1H PRN Administration Breakthrough agitation Metoclopramide HCl 10 mg 05/10/19 20:26 05/11/19 20:16 Reglan IVP 10 mg Q8H PRN Administration Abdominal Distention Ondansetron HCl 4 mg 05/10/19 14:23 05/10/19 17:53 Zofran IVP 4 mg Q6H PRN Administration Nausea/Vomiting Ondansetron HCl 4 mg 05/10/19 20:27 05/11/19 23:02 Zofran SLOW IVP 4 mg Q4H PRN Administration Nausea/Vomiting Pantoprazole Sodium 40 mg 05/12/19 09:00 05/12/19 10:05 Protonix IVP 40 mg DAILY ANDRÉS Administration Promethazine HCl 12.5 mg 05/10/19 14:23 05/10/19 14:51 Phenergan IM 12.5 mg Q4H PRN Administration Nausea/Vomiting Scopolamine 1.5 mg 05/10/19 21:00 05/10/19 20:50 Transderm Scop TOP 1.5 mg Q3D ANDRÉS Administration - Exam General Appearance: ill appearing (in Resp distress) Heart: RRR, no gallops, no rubs Heart - other findings: tachycardic, no heaves Respiratory: no wheezes, rales, rhonchi, tachypneic Gastrointestinal: soft, normal bowel sounds, no guarding, no rigidity Extremities: no cyanosis, no clubbing Neurological: no new deficit Psychiatric: somnolent Hosp A/P (1) Acute hypoxemic respiratory failure Code(s): J96.01 - ACUTE RESPIRATORY FAILURE WITH HYPOXIA Status: Acute (2) Lactic acidosis Code(s): E87.2 - ACIDOSIS Status: Acute (3) Tachyarrhythmia Code(s): R00.0 - TACHYCARDIA, UNSPECIFIED Status: Acute (4) Type 2 myocardial infarction Code(s): I21.A1 - MYOCARDIAL INFARCTION TYPE 2 Status: Acute (5) N&V (nausea and vomiting) Code(s): R11.2 - NAUSEA WITH VOMITING, UNSPECIFIED Status: Acute Qualifiers: Vomiting Intractability: intractable (6) Intractable pain Code(s): R52 - PAIN, UNSPECIFIED Status: Acute (7) Moderate protein-calorie malnutrition Code(s): E44.0 - MODERATE PROTEIN-CALORIE MALNUTRITION Status: Acute (8) H/O malignant neoplasm of stomach Code(s): Z85.028 - PERSONAL HISTORY OF OTHER MALIGNANT NEOPLASM OF STOMACH Status: Chronic (9) Hyponatremia Code(s): E87.1 - HYPO-OSMOLALITY AND HYPONATREMIA Status: Acute (10) HTN (hypertension) Code(s): I10 - ESSENTIAL (PRIMARY) HYPERTENSION Status: Chronic (11) DM2 (diabetes mellitus, type 2) Status: Chronic - Plan plan discussed w/ family Will transfer to CCU for close monitoring STAT labs ordered Nebs Q4h Consult Cardiology/Pulmonary Cardizem drip AM labs CXR - reviewed
[2019-05-12] MEDS: Sodium Chloride 0.9% 1,000 ML IV SCH ×3 (16:29→22:59)
--- NOTE | 2019-05-12 17:13 | OP ---
DATE OF PROCEDURE: 05/12/2019 SERVICE: Pulmonary Medicine. PROCEDURES PERFORMED: Fiberoptic bronchoscopy with: 1. Visual airway inspection. 2. Bronchial wash from bilateral lungs. PREPROCEDURE DIAGNOSES: 1. Acute hypoxic respiratory failure. 2. Large volume aspiration. POSTPROCEDURE DIAGNOSES: 1. Acute hypoxic respiratory failure. 2. Large volume aspiration. MEDICATIONS USED: 20 mg propofol push from pump. DESCRIPTION OF PROCEDURE: This procedure was performed emergently. As such, consent was implied. A time-out was performed identifying the correct procedure and the patient with name and date of . A diagnostic fiberoptic bronchoscope was introduced through the endotracheal tube. The bronchoscope was advanced into the trachea, where tracheobronchial tree inspection was carried out. There were very diffuse thin brown secretions throughout bilateral lung prabhakar. These were suctioned, and irrigated multiple times. A sample was sent to the lab for analysis. An airway inspection was then performed. There was clear identification of the right upper lobe, right middle lobe, right lower lobe, left upper lobe, lingula , and left lower lobe. Anatomy was normal to the segmental level. There was no significant blood loss. The bronchoscope was subsequently removed from the patient. FINDINGS: 1. No endobronchial disease was identified. 2. Secretions were copious, thin, brown, and foul smelling throughout bilateral lung prabhakar consistent with his aspirated abdominal contents. SPECIMENS OBTAINED: BAL for Gram stain and culture. COMPLICATIONS: Transient hypoxemia down to 84%, which promptly resolved. ESTIMATED BLOOD LOSS: None. DISPOSITION: The patient will remain in the ICU on mechanical ventilation to recover from the procedure. Job ID: [id number] MTDD
--- NOTE | 2019-05-12 17:14 | OP ---
DATE OF PROCEDURE: 05/12/2019 SERVICE: Pulmonary Medicine. PROCEDURE PERFORMED: Emergent endotracheal intubation. CONSENT: Procedure was performed emergently secondary to clinical deterioration and respiratory failure. STAFF PHYSICIAN: Rob Ferguson MD MEDICATIONS USED: 1. Etomidate 20 mg IV push. 2. Versed 2 mg IV push. PREPROCEDURE DIAGNOSES: 1. Acute hypoxic respiratory failure. 2. Metabolic acidosis. POSTPROCEDURE DIAGNOSES: 1. Acute hypoxic respiratory failure. 2. Metabolic acidosis. DESCRIPTION OF PROCEDURE: Vital sign monitoring was accomplished by noninvasive hemodynamic monitoring, pulse oximetry, and telemetry. In the supine position, the patient was preoxygenated with [id number] ventilation and maintained with saturations of 94%. Following induction of anesthesia, the patient had a massive volume aspiration event. He started vomiting profusely from his mouth. Recovery maneuvers were initiated. Once the mouth was cleared of brown/feculent liquid, a GlideScope was inserted through the mouth offering clear identification of the posterior oropharynx and laryngeal structures with a grade 1 view. An endotracheal tube was visualized passing through the vocal cords. Placement was confirmed by condensation in the endotracheal tube, colorimetric capnography, and bi-axillary chest auscultation. Endotracheal tube was secured at 23 cm, measured at the teeth. The patient was placed on mechanical ventilation with good return of volumes. Postprocedure x-ray revealed good location for the endotracheal tube in the trachea and bilateral infiltrates. ESTIMATED BLOOD LOSS: None. COMPLICATIONS: Large volume aspiration of brown/feculent, foul smelling abdominal contents. Job ID: [id number] [facility]
--- NOTE | 2019-05-12 17:54 | CON ---
DATE OF CONSULTATION: 05/12/2019 REASON FOR CONSULTATION: Tachycardia. HISTORY OF PRESENT ILLNESS: Mr. Ernandez is an unfortunate 64-year-old gentleman with advanced gastric cancer. The patient has also has suffered aspiration. The patient's status has been declining in the intensive care unit, and it has been noted that his heart rate has been increased, heart rate was up to 160 beats per minute. This morning, the nurse says he got adenosine and the heart rate gradually decreased to 130 and then gradually came back up to where it had been. I understand he actually got 2 doses of this with the same pattern each time. The patient is intubated on the ventilator. REVIEW OF SYSTEMS: Not available or able to be obtained. PAST MEDICAL HISTORY: Advanced gastric cancer. No previous cardiac history. SOCIAL HISTORY: Not known. FAMILY HISTORY: Apparently, the father also had gastric cancer. PHYSICAL EXAMINATION: GENERAL: This is a critically ill-appearing gentleman. He is intubated on the ventilator. VITAL SIGNS: Blood pressure is 70 systolic, pulse is 130, sinus tachycardia. LUNGS: Clear anteriorly and laterally. CARDIAC: Very tachycardic. No murmur, rub, or gallop. ABDOMEN: Soft and nontender. EXTREMITIES: No clubbing or cyanosis. There is no significant edema. The feet are cool. EKG reveals sinus tachycardia. LABORATORY STUDIES: Troponin level 0.155. ASSESSMENT: 1. Advanced gastric cancer. 2. Probably aspiration. 3. Hypotension. 4. Tachycardia, appears to be sinus tachycardia. 5. Increased troponin, likely demand ischemia. PLAN: 1. Echocardiogram will be ordered just to make sure he does not have any pericardial fluid causing his problem. The voltages are relatively low. 2. Intravenous fluid will be given. We will check on the echocardiogram later. Job ID: [id number]
[2019-05-12] MEDS: Propofol 1,000 MG/100 ML VIAL IV PRN (22:52)
[2019-05-13] MEDS: HumaLOG 300 UNITS/3 ML VIAL SC PRN (00:24)
[2019-05-13] MEDS: Lorazepam 2 MG/ML VIAL SLOW IVP PRN ×4 (00:29→22:35)
[2019-05-13] MEDS: Piperacillin/Tazobactam 3.375 GM in Sodium Chloride 0.9% 100 ML IVPB SCH ×4 (03:26→20:34)
[2019-05-13 05:29] LABS: Lactic Acid 2.1 mmol/L (0.5-2.2)
[2019-05-13 05:35] LABS: ALT (SGPT) 20 U/L (8-55); AST (SGOT) 16 U/L (5-34); Albumin 2.5 g/dL (3.4-4.8); Alkaline Phosphatase 72 U/L (40-150); Anion Gap 12 mmol/L (10-20); BUN (Urea Nitrogen) 25 mg/dL (8.4-25.7); Band 22 % (5-11); Bilirubin, Total 0.7 mg/dL (0.2-1.2); Calc. Creatinine Clearance 97 mL/min (70-130); Calcium 7.4 mg/dL (7.8-10.44); Carbon Dioxide 18 mmol/L (23-31); Chloride 112 mmol/L (98-107); Eosinophils 1 % (0-10); Estimated GFR-MDRD 74; Globulin 2.1 g/dL (2.4-3.5); Glucose 168 mg/dL (80-115); Hemoglobin 11.8 g/dL (14.0-18.0); Lymphocytes 8 % (21-51); MDiff Complete? YES; Mean Corpuscular HGB CONC 33.2 g/dL (32.0-36.0); Mean Corpuscular Hemoglobin 29.6 pg (27.0-31.0); Mean Corpuscular Volume 89.3 fL (78.0-98.0); Monocytes 9 % (0-10); Neutrophil 60 % (42-75); Platelet Count 163 thou/uL (130-400); Potassium 3.3 mmol/L (3.5-5.1); Protein, Total 4.6 g/dL (5.8-8.1); RBC Distribution Width 12.1 % (11.5-14.5); Red Blood Cell (RBC) Count 3.99 mill/uL (4.70-6.10); Sodium 139 mmol/L (136-145); White Blood Cell (WBC) Count 7.2 thou/uL (4.8-10.8)
[2019-05-13 05:57] LABS: CKMB 0.7 ng/mL (0-6.6)
[2019-05-13] MEDS ORDERED: 1/2 NS w/KCL 20 mEq 1,000 ML IV SCH ×2 (06:45→08:32)
--- NOTE | 2019-05-13 08:03 | RAD ---
CHEST 1 VIEW: Date: 05/13/19 INDICATION: Daily CCU exam. COMPARISON: Prior exam dated 05/12/19. FINDINGS: The patient remains intubated with right subclavian central venous catheter and gastric catheter plac ement. Overlying pacer pad of the left chest wall has been removed. There is worsening parenchymal op acity of the left mid lung and left lower lobe which may reflect worsening edema. There are worsening bilateral pleural effusions. No pneumothorax is evident. Cardiac silhouette remains mildly enlarged with pulmonary vascular congestion. IMPRESSION: Findings suspicious for worsening CHF. POS: BH
[2019-05-13] MEDS: Pantoprazole 40 MG VIAL IVP SCH (08:45)
[2019-05-13] MEDS: Aspirin 300 MG Suppository PR SCH (08:45)
[2019-05-13] MEDS: Potassium Chloride 40 MEQ in Premix Bag 1 BAG IVPB SCH ×2 (09:28→16:25)
--- NOTE | 2019-05-13 10:18 | PQF ---
DATE: 05-13-19 ATTN: DR. LOUIS SILVA Please exercise your independent, professional judgment in responding to the clarification form. Clinical indicators are provided on the bottom of this form for your review Please check appropriate box(s) to clarify if the following diagnosis has been ruled in or ruled out: SEPSIS [ ] Ruled in diagnosis [ ] Continue to treat [ ] Resolved [ ] Ruled out diagnosis [ ] Other diagnosis [ ] Unable to determine In addition, please specify: Present on Admission (POA): [ ] Yes [ ] No [ ] Unable to determine For continuity of documentation, please document condition throughout progress notes and discharge summary. Thank You. CLINICAL INDICATORS - SIGNS / SYMPTOMS / LABS: EVENT NOTE KATRINA LUNDY PA-C 05-10-19: TACHYCARDIC INTO THE 130'S, BOLUS THE PATIENT WITH IV NS 500CC AND CONTINUE TO MONITOR, HE IS LETHARGIC WHICH I SUSPECT IS MEDICATION RELATED CONSULT NOTE DR. JUAREZ 05-12-19: ACUTE HYPOXIC RESPIRATORY FAILURE, SEVERE SEPSIS, HEALTHCARE-ASSOCIATED PNEUMONIA 2/2 TO GROSS ASPIRATION EVENT WBC: 05-12-19: 2.6 BANDS: 05-13-19: 22% LACTIC ACID: 05-12-19: 3.3 TEMP: 05-12-19: 99.4, 100.2, 100.1, 100.6 PULSE: 05-10-19: 118, 118, 120, 110 05-11-19: 115, 117, 116 05-12-19: 120, 135, 129, 132, 145, 143, 140 RISK FACTORS: H&P: PAST MEDICAL HX: STOMACH CANCER, HTN, DM 2 WITH HYPONATREMIA, NAUSEA, VOMITING CONSULT NOTE DR. JUAREZ 05-12-19: ACUTE HYPOXIC RESPIRATORY FAILURE, SEVERE SEPSIS, HEALTHCARE-ASSOCIATED PNEUMONIA 2/2 TO GROSS ASPIRATION EVENT TREATMENTS: CONSULT NOTE DR. JUAREZ 05-13-19: EMPIRIC ANTIBIOTICS DIRECTED AT ASPIRATION ORGANISMS WILL BE INITIATED (ZOSYN) MAR 05-12-19: ZOSYN IV (This form is maintained as a part of the permanent medical record) 2014 [employer] All Rights Reserved [email or web address] Office: [phone] [facility]
[2019-05-13] MEDS: Propofol 1,000 MG/100 ML VIAL IV PRN (10:24)
[2019-05-13] MEDS ORDERED: Iopamidol 370 76% 50 ML VIAL FS ONE (11:36)
[2019-05-13] MEDS ORDERED: Iopamidol 370 76% 100 ML VIAL ONE (11:36)
--- NOTE | 2019-05-13 13:50 | PRG ---
DATE OF SERVICE: 05/13/2019 SERVICE: Pulmonary Medicine. INTERVAL HISTORY: The patient's blood pressures and heart rate seems to be stabilizing a little bit. He got 2 L of fluid yesterday. He seemed to respond very nicely to these interventions. He cannot provide any additional elements of the history. That being said, he seemed to stabilize to some degree over the last 12 hours. He cannot provide any additional elements of the history. He is requiring some sedation to stay comfortable. PHYSICAL EXAMINATION: VITAL SIGNS: Afebrile currently. T-max overnight 100.6. Pulse 115, blood pressure 119/74, respirations 15, and saturation 100%, currently on 57% FiO2 and a PEEP of 5. GENERAL: The patient is intubated and sedated. HEENT: Normocephalic and atraumatic. Sclerae white. Conjunctivae pink. Oral mucosa is moist without lesions. LUNGS: Decent air entry. There is no prolonged expiratory phase or wheezing present. HEART: Normal rate. Regular. ABDOMEN: Soft, nontender, and nondistended. Bowel sounds are positive. MUSCULOSKELETAL: No cyanosis or clubbing. No pitting in the bilateral lower extremities. NEUROLOGIC: Grossly nonfocal. LABORATORY DATA: WBC 7.2, hemoglobin 11.8, and platelets 163,000. Creatinine 1.02 and gently uptrending, bicarb 18, chloride 112, and potassium 3.3. Liver function studies are otherwise unremarkable. Troponin is downtrending. Lactate was 2.1. CK-MB remains low. Respiratory culture has many budding yeast, many gram-positive rods, many gram-negative rods, and many white blood cells with very few epithelial cells identified. IMAGIN. Chest x-ray demonstrates increasing infiltrates throughout bilateral lung prabhakar. With the amount of fluid that are flushed in his lungs, it does not surprise me that this got significantly worse. There is an enteric catheter coursing midline below the level of the diaphragm, MediPort terminates in good position, and an endotracheal tube, which is in good position. It terminates roughly 5 cm above the level of the yomi. 2. Echocardiogram demonstrates normal ejection fraction. No significant valvular disease is appreciated. 3. CT of the abdomen and pelvis is currently pending. 4. The lung windows demonstrate extensive bilateral pleural effusions, and infiltrating consolidation in the bilateral lower lobes. There is some atelectasis there, but the lungs are not small enough that to be only atelectasis. I actually favor pneumonias here. Anterior lung prabhakar are relatively spared. ASSESSMENT: 1. Acute hypoxic respiratory failure. 2. Healthcare-associated pneumonia secondary to gross aspiration event. 3. Bilateral pleural effusions, moderate to large. 4. Severe sepsis. 5. Gastric cancer with ileus versus obstruction. 6. Diabetes mellitus. DISCUSSION AND PLAN: We are waiting to see the results of the CT of the belly. Multiple ventilator adjustments have been made to turn a little bit more work of breathing over to the patient. We will wean oxygen away as tolerated. At this point, his oxygen requirements preclude safe extubation. We will continue NG suction. I will replace the potassium. We will watch his urine output. Pulmonary/Critical Care will continue to follow along while the patient remains in this location. CRITICAL CARE TIME: 30 minutes. Job ID: [id number]
--- NOTE | 2019-05-13 13:50 | CT ---
CT OF THE CHEST, ABDOMEN AND PELVIS WITH IV CONTRAST INDICATION: History of stomach cancer and feculent emesis COMPARISON: None. FINDINGS: CHEST: Lungs:There is areas of air bronchograms involving both lower lobes most suspicious for compressive a telectasis from large bilateral pleural effusions. There are airspace opacities within the upper lobe suspicious for mild edema. Heart and great vessels:There is a right subclavian chest wall port. Heart and great vessels appear w ithin normal limits. Pleural space: There are large bilateral pleural effusions Additional findings: There is enteric contrast seen within the esophagus which may reflect reflux or dysmotility. ABDOMEN: Liver:Normal appearing. Spleen:Normal appearing. Pancreas:Normal appearing. Adrenal Glands:Normal appearing. Kidneys:Normal appearing. Aorta:Normal appearing. Additional findings: There is prominent circumferential wall thickening involving the distal gastric body and gastric antrum likely correlating with patient's known gastric malignancy. There is a gastric catheter called to the level of the gastric body. There is mild fluid distention of the duode num and loops of jejunum. Pelvis: Bowel:There is moderate distention of fluid-filled loops of small bowel within the central abdomen wi thout a definite transition zone. There is [id number] amount of retained stool within the colon and rectum. There is a rectal tube in place. Bladder:The bladder is decompressed with a Avendaño catheter. Reproductive structures:Normal appearing. Rectum and perirectal soft tissues:Normal appearing. Additional findings: There is moderate anasarca and moderate to prominent ascites. Osseous structures: No acute osseous abnormality. There is scattered degenerative and osteoarthritic changes. IMPRESSION: 1. Large bilateral pleural effusions with suspected bilateral lower lobe and partial bilateral upper lobe compressive atelectasis. 2. Moderate to prominent ascites with moderate anasarca. Findings may reflect sequela of CHF or volum e overload. 3. Circumferential wall thickening of the distal gastric body and antrum likely correlating patient's known gastric malignancy. There is no overt evidence to suggest metastatic disease within visualized aspects of the chest, abdomen and pelvis. 4. Moderate distention of fluid-filled loops of small bowel without a definite transition zone is bright picious for ileus.
--- NOTE | 2019-05-13 16:03 | PDOC.HOSPP ---
- Subjective Encounter Date: 05/13/19 Encounter Time: 06:30 Subjective: Patient seen and examined for resp failure. On [facility] Vent. No overnight events - Objective Vital Signs & Weight: Vital Signs (12 hours) Temp Pulse Resp BP Pulse Ox 05/13/19 13:28 112 H 125/79 05/13/19 13:26 112 H 17 99 05/13/19 12:00 99 F 05/13/19 10:10 118 H 118/77 05/13/19 10:00 22 H 05/13/19 08:00 98.4 F 24 H 05/13/19 07:00 98.4 F 117 H 18 100 05/13/19 06:56 114 H 140/73 05/13/19 06:54 111 H 16 100 05/13/19 06:00 28 H 05/13/19 05:00 99.4 F Weight Admit Weight 201 lb Weight 206 lb 9.17 oz Most Recent Monitor Data Heart Rate from ECG 117 NIBP 132/78 NIBP BP-Mean 105 Respiration from ECG 24 SpO2 100 I&O: 05/12/19 05/13/19 05/14/19 06:59 06:59 06:59 Intake Total 680 4418.2 986 Output Total 1180 1700 770 Balance -500 2718.2 216 Result Diagrams: 05/13/19 04:55 05/13/19 04:55 Additional Labs: Accuchecks 05/13/19 05/13/19 05/12/19 14:47 00:20 19:41 POC Glucose 155 H 201 H 199 H 05/12/19 07:24 POC Glucose 234 H Radiology Reviewed by me: Yes (CXR - B/L infiltrates) EKG Reviewed by me: Yes (Tele SR) Hospitalist ROS - Review of Systems ROS unobtainable: due to endotracheal tube - Medication Medications: Active Medications Generic Name Dose Route Start Last Admin Trade Name Freq PRN Reason Stop Dose Admin Albuterol/Ipratropium 3 ml 05/12/19 13:00 05/13/19 13:26 Duoneb NEB 3 ml [id number] ANDRÉS Administration Aspirin 300 mg 05/12/19 09:00 05/13/19 08:45 Aspirin FL 300 mg DAILY ANDRÉS Administration Baclofen 10 mg 05/10/19 11:58 05/10/19 13:55 Lioresal PO 10 mg TIDPRN PRN Administration Hiccups Promethazine HCl 25 mg/ Sodium 51 mls @ 204 mls/hr 05/10/19 20:27 05/12/19 04 :26 Chloride IVPB 51 mls Q6H PRN Administration Nausea Piperacillin Sod/Tazobactam 100 mls @ 200 mls/hr 05/12/19 09:00 05/13/19 08: 45 Sod 3.375 gm/ Sodium Chloride IVPB 100 mls 0300,0900,1500,2100 ANDRÉS Administration Potassium Chloride 40 meq/ 100 mls @ 25 mls/hr 05/13/19 08:45 05/13/19 09:28 Device IVPB 05/13/19 16:44 100 mls Q4H ANDRÉS Administration Potassium Chloride/Sodium Chloride 1,000 mls @ 75 mls/hr 05/13/19 08:32 05/13 09:55 1/2 Ns W/Kcl 20 Meq IV 1,000 mls .[id number] ANDRÉS Administration Insulin Human Lispro 0 units 05/10/19 01:59 05/13/19 00:24 Humalog SC 3 unit .MILD SLIDING SCALE PRN Administration Mild Correctional Scale Lorazepam 2 mg 05/12/19 08:52 05/13/19 10:20 Ativan SLOW IVP 06/11/19 08:52 2 mg Q1H PRN Administration Breakthrough agitation Metoclopramide HCl 10 mg 05/10/19 20:26 05/11/19 20:16 Reglan IVP 10 mg Q8H PRN Administration Abdominal Distention Ondansetron HCl 4 mg 05/10/19 14:23 05/10/19 17:53 Zofran IVP 4 mg Q6H PRN Administration Nausea/Vomiting Ondansetron HCl 4 mg 05/10/19 20:27 05/11/19 23:02 Zofran SLOW IVP 4 mg Q4H PRN Administration Nausea/Vomiting Pantoprazole Sodium 40 mg 05/12/19 09:00 05/13/19 08:45 Protonix IVP 40 mg DAILY ANDRÉS Administration Promethazine HCl 12.5 mg 05/10/19 14:23 05/10/19 14:51 Phenergan IM 12.5 mg Q4H PRN Administration Nausea/Vomiting Propofol 1,000 mg 05/12/19 08:52 05/13/19 10:24 Diprivan IV 06/11/19 08:52 1,000 mg INF PRN Administration TO ACHIEVE GOAL RASS Protocol Scopolamine 1.5 mg 05/10/19 21:00 05/10/19 20:50 Transderm Scop TOP 1.5 mg Q3D ANDRÉS Administration - Exam General Appearance: NAD (on Vent. OG tube +) Heart: RRR, no rubs Respiratory: rales, rhonchi Gastrointestinal: soft, normal bowel sounds Extremities: no edema Neurological - other findings: Cannot assess due to sedation Hosp A/P (1) Aspiration pneumonia Code(s): J69.0 - PNEUMONITIS DUE TO INHALATION OF FOOD AND VOMIT Status: Acute (2) Acute hypoxemic respiratory failure Code(s): J96.01 - ACUTE RESPIRATORY FAILURE WITH HYPOXIA Status: Acute (3) Lactic acidosis Code(s): E87.2 - ACIDOSIS Status: Acute (4) Tachyarrhythmia Code(s): R00.0 - TACHYCARDIA, UNSPECIFIED Status: Acute (5) Type 2 myocardial infarction Code(s): I21.A1 - MYOCARDIAL INFARCTION TYPE 2 Status: Acute (6) N&V (nausea and vomiting) Code(s): R11.2 - NAUSEA WITH VOMITING, UNSPECIFIED Status: Acute Qualifiers: Vomiting Intractability: intractable (7) Moderate protein-calorie malnutrition Code(s): E44.0 - MODERATE PROTEIN-CALORIE MALNUTRITION Status: Acute (8) H/O malignant neoplasm of stomach Code(s): Z85.028 - PERSONAL HISTORY OF OTHER MALIGNANT NEOPLASM OF STOMACH Status: Chronic (9) Hyponatremia Code(s): E87.1 - HYPO-OSMOLALITY AND HYPONATREMIA Status: Acute (10) DM2 (diabetes mellitus, type 2) Status: Chronic Qualifiers: Chronic kidney disease stage: stage 2 (mild) (11) HTN (hypertension) Code(s): I10 - ESSENTIAL (PRIMARY) HYPERTENSION Status: Chronic (12) Hypokalemia Code(s): E87.6 - HYPOKALEMIA Status: Acute (13) Intractable pain Code(s): R52 - PAIN, UNSPECIFIED Status: Acute - Plan hernandez catheter, DVT proph w/SCDs Cont IV Zosyn Change IVF to 1/2 NS with 20 meq KCL Replace Potassium Cont supportive care Cont OG tube suction Cardiology/Pulmonary input appreciated AM labs
--- NOTE | 2019-05-13 16:43 | EKG ---
Test Reason : STAT Blood Pressure : / mmHG Vent. Rate : 130 BPM Atrial Rate : 130 BPM P-R Int : 128 ms QRS Dur : 070 ms QT Int : 286 ms P-R-T Axes : 042 027 082 degrees QTc Int : 420 ms Sinus tachycardia Low voltage QRS Cannot rule out Anterior infarct (cited on or before 17-APR-2019) Abnormal ECG When compared with ECG of 17-APR-2019 11:41, (Unconfirmed) Vent. rate has increased BY 44 BPM Questionable change in initial forces of Anterior leads Nonspecific T wave abnormality now evident in Lateral leads Confirmed by DR. Andre BRAGG ([id number]) on 05/13/2019 4:43:41 PM Referred By: RADHA Confirmed By:DR. Andre BRAGG
--- NOTE | 2019-05-13 16:44 | EKG ---
Test Reason : Blood Pressure : / mmHG Vent. Rate : 145 BPM Atrial Rate : 145 BPM P-R Int : 000 ms QRS Dur : 070 ms QT Int : 344 ms P-R-T Axes : 009 063 067 degrees QTc Int : 534 ms Sinus tachycardia Low voltage QRS Nonspecific T wave abnormality Abnormal ECG When compared with ECG of 12-MAY-2019 01:26, (Unconfirmed) Minimal criteria for Anterior infarct are no longer Present Nonspecific T wave abnormality, improved in Inferior leads Confirmed by DR. Andre BRAGG ([id number]) on 05/13/2019 4:44:32 PM Referred By: RICARDO Confirmed By:DR. Andre BRAGG
--- NOTE | 2019-05-13 18:05 | PRG ---
DATE OF SERVICE: 05/13/2019 SUBJECTIVE: Mr. Ernandez remains intubated on the ventilator. His hemodynamic status has stabilized somewhat. He has had 1.2 L output from his nasogastric tube on low intermittent suction. No stool output. OBJECTIVE: VITAL SIGNS: Temperature 98.8, pulse 115, blood pressure 126/76, 98% oxygen saturation on ventilator. GENERAL: Critically ill, intubated, and sedated. HEART: Regular. Tachycardia. LUNGS: Bibasilar crackles. ABDOMEN: Nondistended. Bowel sounds are hypoactive. EXTREMITIES: No peripheral edema. LABORATORY STUDIES: WBC 7.2, hemoglobin 11.8, platelets 163. Sodium 139, potassium 3.3, BUN 25, creatinine 1.02, glucose 155. Troponin 0.131. CK-MB 0.7. LFTs all normal with total bilirubin 0.7, alkaline phosphatase 72, AST 16, ALT 20. IMAGING STUDIES: CT of the chest, abdomen, and pelvis demonstrates large bilateral pleural effusions. There are air bronchograms involving both lower lobes with airspace opacities in the upper lobe. There is prominent circumferential wall thickening involving the distal gastric body and gastric antrum correlating with his known gastric malignancy. There is mild to moderate fluid distention of the proximal small bowel without a definite transition zone consistent with ileus. ASSESSMENT: 1. 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 2. Ileus. 3. Aspiration pneumonia. 4. Pleural effusions. 5. Hypoxic respiratory failure. PLAN: The patient remains critically ill following his witnessed aspiration event. Continuing with supportive care. We do not have any records back from [facility] or [facility], but by our CT here, it appears that he has distal gastric involvement with his adenocarcinoma. He also does appear to have ileus. This is likely the primary reason for his more recent nausea and vomiting which led to his aspiration. I still do not see any utility to repeating any upper endoscopy at this point, unless Oncology requests this for staging purposes. Would continue current supportive cares. Continue nasogastric tube on low intermittent suction. GI can continue to follow along. Please call anytime with questions or concerns. Job ID: [id number]
[2019-05-14] MEDS: Propofol 1,000 MG/100 ML VIAL IV PRN ×3 (02:26→21:03)
[2019-05-14] MEDS: Piperacillin/Tazobactam 3.375 GM in Sodium Chloride 0.9% 100 ML IVPB SCH ×4 (03:23→20:01)
[2019-05-14 05:39] LABS: ALT (SGPT) 17 U/L (8-55); AST (SGOT) 14 U/L (5-34); Albumin 2.7 g/dL (3.4-4.8); Alkaline Phosphatase 74 U/L (40-150); Anion Gap 10 mmol/L (10-20); BUN (Urea Nitrogen) 24 mg/dL (8.4-25.7); Bilirubin, Total 0.6 mg/dL (0.2-1.2); Calc. Creatinine Clearance 115 mL/min (70-130); Calcium 8.1 mg/dL (7.8-10.44); Carbon Dioxide 23 mmol/L (23-31); Chloride 111 mmol/L (98-107); Estimated GFR-MDRD 90; Globulin 2.3 g/dL (2.4-3.5); Glucose 136 mg/dL (80-115); Magnesium 2.2 mg/dL (1.6-2.6); Phosphorus 1.6 mg/dL (2.3-4.7); Potassium 3.7 mmol/L (3.5-5.1); Sodium 140 mmol/L (136-145)
[2019-05-14 06:02] LABS: Hemoglobin 12.3 g/dL (14.0-18.0); Mean Corpuscular HGB CONC 34.4 g/dL (32.0-36.0); Mean Corpuscular Hemoglobin 30.4 pg (27.0-31.0); Mean Corpuscular Volume 88.4 fL (78.0-98.0); Mean Platelet Volume 7.6 fL (7.4-10.4); Platelet Count 166 thou/uL (130-400); RBC Distribution Width 12.2 % (11.5-14.5); Red Blood Cell (RBC) Count 4.06 mill/uL (4.70-6.10); White Blood Cell (WBC) Count 11.8 thou/uL (4.8-10.8)
[2019-05-14 06:03] LABS: Band 9 % (5-11); Eosinophils 2 % (0-10); Lymphocytes 7 % (21-51); MDiff Complete? YES; Monocytes 7 % (0-10); Neutrophil 75 % (42-75)
--- NOTE | 2019-05-14 06:11 | PDOC.MOPN ---
Interval History: sedated, comfortable currently - Vital Signs Vital Signs: Vital Signs (12 hours) Temp Pulse Resp BP Pulse Ox 05/14/19 04:00 98.6 F 16 05/14/19 02:30 102 H 132/87 05/14/19 02:00 17 05/14/19 00:13 97 119/71 05/14/19 00:00 98.5 F 15 05/13/19 22:07 117 H 126/77 05/13/19 22:00 23 H 05/13/19 20:00 99.3 F 16 100 05/13/19 18:45 112 H 130/80 Weight Admit Weight 201 lb Weight 206 lb 9.17 oz Most Recent Monitor Data Heart Rate from ECG 101 NIBP 136/90 NIBP BP-Mean 110 Respiration from ECG 13 SpO2 100 - Physical Exam General: Other (sedated/intubated, green bilious drainage in NGT) HEENT: Atraumatic Lungs: Clear to auscultation, Other Cardiovascular: Regular rate, Other (tachy) Abdomen: Normal bowel sounds, Other (distended) Skin: No rashes - Labs Result Diagrams: 05/14/19 04:30 05/14/19 04:30 Lab results: Laboratory Results - last 24 hr 05/14/19 04:30: WBC 11.8 H, RBC 4.06 L, Hgb 12.3 L, Hct 35.9 L, MCV 88.4, MCH 30.4, MCHC 34.4, RDW 12.2, Plt Count 166, MPV 7.6, Neutrophils % (Manual) 75, Band Neuts % (Manual) 9, Lymphocytes % (Manual) 7 L, Monocytes % (Manual) 7, Eosinophils % (Manual) 2 05/14/19 04:30: Sodium 140, Potassium 3.7, Chloride 111 H, Carbon Dioxide 23, Anion Gap 10, BUN 24, Creatinine 0.86, Estimated GFR (MDRD) 90, Glucose 136 H, Calcium 8.1, Phosphorus 1.6 L, Magnesium 2.2, Total Bilirubin 0.6, AST 14, ALT 17, Alkaline Phosphatase 74, Serum Total Protein 5.0 L, Albumin 2.7 L, Globulin 2.3 L, Albumin/Globulin Ratio 1.2 05/14/19 00:48: POC Glucose 124 H 05/13/19 18:26: POC Glucose 123 H 05/13/19 14:47: POC Glucose 155 H 05/12/19 07:24: POC Glucose 234 H A/P - Problem (1) Aspiration into airway Current Visit: Yes Code(s): T17.908A - UNSP FB IN RESP TRACT, PART UNSP CAUSING OTH INJURY, INIT Status: Acute (2) Acute hypoxemic respiratory failure Current Visit: Yes Code(s): J96.01 - ACUTE RESPIRATORY FAILURE WITH HYPOXIA Status: Acute (3) N&V (nausea and vomiting) Current Visit: Yes Code(s): R11.2 - NAUSEA WITH VOMITING, UNSPECIFIED Status : Acute Qualifiers: Vomiting Intractability: intractable (4) H/O malignant neoplasm of stomach Current Visit: Yes Code(s): Z85.028 - PERSONAL HISTORY OF OTHER MALIGNANT NEOPLASM OF STOMACH Status: Chronic - Plan Plan: 1. continue ventilatory support, appreciate pulm help 2. his overall prognosis is poor but hopefully he can survive this acute event 3. will follow with you and discuss with family 4. paracentesis? discuss with ICU team
--- NOTE | 2019-05-14 06:57 | RAD ---
CHEST 1 VIEW: Date: 05/14/19 INDICATION: History of intubation. COMPARISON: Prior exam dated 05/13/19. FINDINGS: Bilateral parenchymal opacities persist. Bilateral pleural effusions are similar appearing. The patie nt remains intubated with right chest wall port and gastric catheter placement. No pneumothorax is ev ident. IMPRESSION: Stable exam. POS: BH
--- NOTE | 2019-05-14 06:58 | RAD ---
KUB: DATE: 05/14/19 INDICATION: Ileus. COMPARISON: Prior KUB dated 05/12/19. FINDINGS: The mild gaseous distention of small bowel has improved. There is some residual gas and stool present within the colon and rectum. Gastric catheter is seen within the region of the gastric body. No susp icious calcification is evident. IMPRESSION: Improvement in the bowel gas pattern. POS: BH
[2019-05-14] MEDS ORDERED: CCU Electrolyte Replacement 1 EACH FS ONE (08:11)
[2019-05-14] MEDS ORDERED: PHOS-NAK 1 PKT PACK PO PRN ×2 (09:03)
[2019-05-14] MEDS ORDERED: Potassium Phosphate 12 MMOL in Sodium Chloride 0.9% 250 ML 250 ML IV PRN (09:03)
[2019-05-14] MEDS ORDERED: Potassium Chloride 20 MEQ TAB PO PRN (09:03)
[2019-05-14] MEDS ORDERED: Potassium Chloride 40 MEQ in Premix Bag 1 BAG IVPB PRN (09:03)
[2019-05-14] MEDS ORDERED: Magnesium 2 GM/50 ML 2 GM in Premix Bag 1 BAG IVPB PRN (09:03)
[2019-05-14] MEDS ORDERED: Magnesium Oxide 400 MG TAB PO PRN ×2 (09:03)
[2019-05-14] MEDS ORDERED: Potassium Chloride 40 MEQ in Sodium Chloride 0.9% 250 ML 250 ML IVPB PRN (09:03)
[2019-05-14] MEDS ORDERED: Potassium Phosphate 15 MMOL in Sodium Chloride 0.9% 250 ML 250 ML IV PRN (09:03)
[2019-05-14] MEDS ORDERED: Potassium Phosphate 9 MMOL in Sodium Chloride 0.9% 100 ML IVPB PRN (09:03)
--- NOTE | 2019-05-14 09:34 | PDOC.HOSPP ---
- Subjective Encounter Date: 05/14/19 Encounter Time: 08:00 non-verbal Subjective: Patient seen and examined for Resp failure. Remains on Vent. No overnight events. OG tube >700 ml overnight - Objective Vital Signs & Weight: Vital Signs (12 hours) Temp Pulse Resp BP Pulse Ox 05/14/19 06:38 99 115/79 05/14/19 06:37 98 13 99 05/14/19 06:00 15 05/14/19 04:00 98.6 F 16 05/14/19 02:30 102 H 132/87 05/14/19 02:00 17 05/14/19 00:13 97 119/71 05/14/19 00:00 98.5 F 15 05/13/19 22:07 117 H 126/77 05/13/19 22:00 23 H Weight Admit Weight 201 lb Weight 204 lb 2.369 oz Most Recent Monitor Data Heart Rate from ECG 110 NIBP 135/96 NIBP BP-Mean 108 Respiration from ECG 21 SpO2 100 I&O: 05/13/19 05/14/19 05/15/19 06:59 06:59 06:59 Intake Total 4418.2 2409 Output Total 1700 2875 170 Balance 2718.2 -466 -170 Result Diagrams: 05/14/19 04:30 05/14/19 04:30 Additional Labs: Accuchecks 05/14/19 05/13/19 05/13/19 00:48 18:26 14:47 POC Glucose 124 H 123 H 155 H 05/12/19 07:24 POC Glucose 234 H Radiology Reviewed by me: Yes (CXR - stable, KUB - some improvement) EKG Reviewed by me: Yes (Tele SR) Hospitalist ROS - Review of Systems ROS unobtainable: due to endotracheal tube - Medication Medications: Active Medications Generic Name Dose Route Start Last Admin Trade Name Freq PRN Reason Stop Dose Admin Albuterol/Ipratropium 3 ml 05/12/19 13:00 05/14/19 06:37 Duoneb NEB 3 ml [id number] ANDRÉS Administration Aspirin 300 mg 05/12/19 09:00 05/13/19 08:45 Aspirin AR 300 mg DAILY ANDRÉS Administration Baclofen 10 mg 05/10/19 11:58 05/10/19 13:55 Lioresal PO 10 mg TIDPRN PRN Administration Hiccups Promethazine HCl 25 mg/ Sodium 51 mls @ 204 mls/hr 05/10/19 20:27 05/12/19 04 :26 Chloride IVPB 51 mls Q6H PRN Administration Nausea Piperacillin Sod/Tazobactam 100 mls @ 200 mls/hr 05/12/19 09:00 05/14/19 03: 23 Sod 3.375 gm/ Sodium Chloride IVPB 100 mls 0300,0900,1500,2100 ANDRÉS Administration Insulin Human Lispro 0 units 05/10/19 01:59 05/13/19 00:24 Humalog SC 3 unit .MILD SLIDING SCALE PRN Administration Mild Correctional Scale Lorazepam 2 mg 05/12/19 08:52 05/13/19 22:35 Ativan SLOW IVP 06/11/19 08:52 2 mg Q1H PRN Administration Breakthrough agitation Metoclopramide HCl 10 mg 05/10/19 20:26 05/11/19 20:16 Reglan IVP 10 mg Q8H PRN Administration Abdominal Distention Ondansetron HCl 4 mg 05/10/19 14:23 05/10/19 17:53 Zofran IVP 4 mg Q6H PRN Administration Nausea/Vomiting Ondansetron HCl 4 mg 05/10/19 20:27 05/11/19 23:02 Zofran SLOW IVP 4 mg Q4H PRN Administration Nausea/Vomiting Pantoprazole Sodium 40 mg 05/12/19 09:00 05/13/19 08:45 Protonix IVP 40 mg DAILY ANDRÉS Administration Promethazine HCl 12.5 mg 05/10/19 14:23 05/10/19 14:51 Phenergan IM 12.5 mg Q4H PRN Administration Nausea/Vomiting Propofol 1,000 mg 05/12/19 08:52 05/14/19 02:26 Diprivan IV 06/11/19 08:52 1,000 mg INF PRN Administration TO ACHIEVE GOAL RASS Protocol - Exam General Appearance: NAD (on VEnt) Neck: supple, no JVD Heart: RRR, no rubs Respiratory: no wheezes, rales (at bases), rhonchi Gastrointestinal: soft, diminished bowl sounds Extremities: no edema Hosp A/P (1) Sepsis Code(s): A41.9 - SEPSIS, UNSPECIFIED ORGANISM Status: Acute Qualifiers: Severe sepsis acute organ dysfunction type: acute respiratory failure (2) Aspiration pneumonia Code(s): J69.0 - PNEUMONITIS DUE TO INHALATION OF FOOD AND VOMIT Status: Acute (3) Ileus Code(s): K56.7 - ILEUS, UNSPECIFIED Status: Acute (4) Acute hypoxemic respiratory failure Code(s): J96.01 - ACUTE RESPIRATORY FAILURE WITH HYPOXIA Status: Acute (5) Lactic acidosis Code(s): E87.2 - ACIDOSIS Status: Acute (6) Tachyarrhythmia Code(s): R00.0 - TACHYCARDIA, UNSPECIFIED Status: Acute (7) Type 2 myocardial infarction Code(s): I21.A1 - MYOCARDIAL INFARCTION TYPE 2 Status: Acute (8) N&V (nausea and vomiting) Code(s): R11.2 - NAUSEA WITH VOMITING, UNSPECIFIED Status: Acute Qualifiers: Vomiting Intractability: intractable (9) Moderate protein-calorie malnutrition Code(s): E44.0 - MODERATE PROTEIN-CALORIE MALNUTRITION Status: Acute (10) H/O malignant neoplasm of stomach Code(s): Z85.028 - PERSONAL HISTORY OF OTHER MALIGNANT NEOPLASM OF STOMACH Status: Chronic (11) Hyponatremia Code(s): E87.1 - HYPO-OSMOLALITY AND HYPONATREMIA Status: Acute (12) DM2 (diabetes mellitus, type 2) Status: Chronic Qualifiers: Chronic kidney disease stage: stage 2 (mild) (13) HTN (hypertension) Code(s): I10 - ESSENTIAL (PRIMARY) HYPERTENSION Status: Chronic (14) Hypokalemia Code(s): E87.6 - HYPOKALEMIA Status: Acute (15) Intractable pain Code(s): R52 - PAIN, UNSPECIFIED Status: Acute (16) Hypophosphatemia Code(s): E83.39 - OTHER DISORDERS OF PHOSPHORUS METABOLISM Status: Acute - Plan plan discussed w/ family (on 05/13 and today), DVT proph w/heparin, DVT proph w/ SCDs Scopolamine patch dced yesterday Cont IV Zosyn Replace Phosphorus Cont Vent support Cont OG tube suction CXR/KUB in AM AM labs
[2019-05-14] MEDS: Pantoprazole 40 MG VIAL IVP SCH (09:44)
[2019-05-14] MEDS: Aspirin 300 MG Suppository PR SCH (09:44)
[2019-05-14] MEDS: Heparin 5,000 UNITS/ML VIAL SC SCH ×2 (09:52→20:04)
[2019-05-14] MEDS: Lorazepam 2 MG/ML VIAL SLOW IVP PRN (11:51)
[2019-05-14] MEDS ORDERED: Potassium Phosphate 30 MMOL in Sodium Chloride 0.9% 500 ML IVPB SCH (12:30)
[2019-05-14] MEDS ORDERED: Albumin 25% 25 GM/100 ML BOT IVPB SCH (12:45)
--- NOTE | 2019-05-14 12:53 | PRG ---
DATE OF SERVICE: 05/14/2019 SERVICE: Pulmonary Medicine. INTERVAL HISTORY: The patient is doing much better from a Respiratory standpoint. Oxygen requirements have improved dramatically. He is having a little less output from the OG tube. It is less feculent in color. Otherwise, there are no significant overnight events. We put him on a small spontaneous breathing trial today. After 10 to 15 minutes, he became a little bit more tachypneic and his volume started falling off, so we put him back on mechanical ventilation. That being said, this is something that would have been an impossible to attempt over the last 2 days. PHYSICAL EXAMINATION: VITAL SIGNS: Afebrile currently. Last temperature was on the 12 of May and it was 100.6. Pulse 100. Blood pressure 81/64. Respirations 14. Saturation currently 100% on 26% FiO2 and a PEEP of 5. GENERAL: The patient is intubated and sedated. HEENT: Normocephalic and atraumatic. Sclerae white. Conjunctivae pink. Oral mucosa is moist without lesions. LUNGS: Decent air entry. There are rhonchi present. There are also some dependent crackles. HEART: Normal rate and regular. ABDOMEN: Soft. It is touch distended. Bowel sounds are hypoactive today. No rebound or guarding is appreciated. : No Avendaño. NEUROLOGIC: Grossly nonfocal. MUSCULOSKELETAL: No cyanosis or clubbing. I do not appreciate any edema. LABORATORY DATA: WBC 11.8, hemoglobin 12.3, and platelets 166,000 and stable. Neutrophil count and band count are improving. Creatinine 0.86 and downtrending, chloride 111. Basic metabolic profile is otherwise unremarkable. Phosphorus is 1.6. Liver function studies are unremarkable. Potassium 3.7. Bronchial washings are growing Escherichia coli and Klebsiella. These are pansensitive organisms. IMAGING: Chest x-ray demonstrates no acute changes. Bilateral pleural effusions are noted. There are bilateral lower lobe infiltrates present. Endotracheal tube remains in stable position. Right subclavian central venous catheter is in place. There is an enteric catheter coursing below the level of the diaphragm. ASSESSMENT: 1. Acute hypoxic respiratory failure, vastly improved. 2. Healthcare-associated pneumonia, secondary to gross aspiration event. 3. Ileus. 4. Bilateral pleural effusions, moderate to large. 5. Ascites, resulting in increasing work of breathing. 6. Severe sepsis, improving. 7. Gastric cancer. 8. Type 2 diabetes mellitus. DISCUSSION AND PLAN: I will replace the patient's potassium and phosphorus today. We are going to proceed with a paracentesis. This is for both diagnostic and therapeutic purposes. Hopefully, this will decrease his work of breathing at touch. He is much improved from a Respiratory standpoint, but he is not quite ready for a full spontaneous breathing trial. If so, extubation cannot be entertained today. Pulmonary will continue to follow. CRITICAL CARE TIME: 30 minutes. Job ID: [id number]
[2019-05-14] MEDS ORDERED: Norepinephrine 8 MG in Dextrose 5% in Water 242 ML IVPB PRN (14:03)
[2019-05-14] MEDS: Sodium Chloride 0.9% 1,000 ML IV SCH (14:14)
[2019-05-14] MEDS ORDERED: Sodium Chloride 0.45% 1,000 ML IV SCH (14:15)
[2019-05-14 14:21] LABS: RBC Count-Automated (BF) 600 /cumm; WBC/Nucleated-Auto (BF) 445 uL
[2019-05-14 14:27] LABS: BF Color Yellow; Body Fluid Source Ascites Body Fluid; Clarity Hazy (Clear)
[2019-05-14 14:28] LABS: Tube # 1
[2019-05-14 14:34] LABS: BF Segmented Neutrophils 10 %; Cell Count Non Hematic 27 %; Eosinophils 1 %; Lymphocytes 62 %
--- NOTE | 2019-05-14 17:19 | PDOC.EVN ---
Event Note - Event Note Event Note: Paracentesis Procedure Note INDICATION: Abdominal ascites PROCEDURE ARTIFICIAL FLOWERS STARCHER: Esperanza Dowd, PGY2 ATTENDING PHYSICIAN: Dr. Ferguson In Attendance: Yes Ultrasound used to bella location: Y CONSENT: Reviewed and obtained Consent was obtained from patient's family prior to the procedure. Indications, risks, and benefits were explained at length. PROCEDURE SUMMARY: A time-out was performed. My hands were washed immediately prior to the procedure. I wore sterile gloves throughout the procedure. The area was cleansed and draped in usual sterile fashion using chlorhexidine scrub. Anesthesia was achieved with 1% lidocaine. The right quadrant of the abdomen was prepped and draped in a sterile fashion using chlorhexidine scrub. 1% lidocaine was used to numb the skin, soft tissue and peritoneum. The paracentesis catheter was inserted and advanced with negative pressure until cloud yellow fluid was aspirated. Approximately 50cc of ascitic fluid was collected and sent for laboratory analysis. The catheter was then connected to the vaccutainer 4 liters of additional ascitic fluid were drained. The catheter was removed and no leaking was noted. A bandaid was placed over the puncture wound. The patient tolerated the procedure well without any immediate complications. Estimated blood loss was 2cc. Addendum - Attending - Attending Attestation Date/Time: 05/14/19 [id number] I was present for all critical steps of this procedure and immediately available for the entirety of the procedure.
--- NOTE | 2019-05-14 18:52 | PRG ---
DATE OF SERVICE: 05/14/2019 SUBJECTIVE: Mr. Ernandez remains intubated but is doing better from a respiratory standpoint. He is back on a little bit of Levophed. He had a 4 L paracentesis performed earlier today. Nasogastric tube output remains high with 1150 mL documented so far today. No stool output. OBJECTIVE: VITAL SIGNS: Temperature 98.7, pulse 104, blood pressure 107/74, 100% oxygen saturation on ventilator. GENERAL: Critically ill. HEART: Regular, borderline tachycardia. LUNGS: Bibasilar crackles, on ventilator. ABDOMEN: Less distended following paracentesis. Bowel sounds are hypoactive, but present. EXTREMITIES: No peripheral edema. LABORATORY STUDIES: WBC up to 11.8, hemoglobin 12.3, platelets 166. Sodium 140, potassium 3.7, BUN 24, creatinine 0.86, glucose 119. LFTs all remain normal with total bilirubin 0.6, alkaline phosphatase 74, AST 14, ALT 17. Paracentesis fluid studies so far show 445 WBCs, but only 10% neutrophils, 600 RBCs. Fluid total protein is 2.6. Fluid cytology pending. IMAGING STUDIES: Abdominal x-ray from this morning suggests some improvement in gaseous distention of the small bowel. ASSESSMENT/PLAN: 1. Gastric adenocarcinoma, stage IV, with peritoneal metastatic disease. 2. Ileus. I had a long discussion with the patient's family regarding the patient developing ileus and subsequent aspiration episode. The ileus is likely multifactorial from his underlying malignancy and chemotherapy and pain medication use leading up to presentation. Unfortunately, this aspiration episode is a significant setback. It will just be remained to be seen to what degree the ileus will resolve by the time he is able to be extubated. The hope is that he will be able to slowly advance his diet and meet nutritional needs following successful extubation. For now, continue nasogastric tube on low intermittent suction. 3. Aspiration pneumonia, respiratory cultures growing out E. coli and Klebsiella pneumoniae. The patient remains on antibiotics and ventilatory support. 4. Ascites. This is a likely malignant ascites. Differential does not strictly meet criteria for SBP. Cytology pending. Nothing further from a GI perspective today. Dr. Livingston is covering for GI this coming weekend. Please call anytime with questions or concerns. Job ID: [id number]
[2019-05-15] MEDS: Lorazepam 2 MG/ML VIAL SLOW IVP PRN (02:40)
[2019-05-15] MEDS: Piperacillin/Tazobactam 3.375 GM in Sodium Chloride 0.9% 100 ML IVPB SCH ×4 (02:51→21:36)
[2019-05-15] MEDS: Propofol 1,000 MG/100 ML VIAL IV PRN ×3 (03:05→18:44)
[2019-05-15 04:57] LABS: Band 6 % (5-11); Eosinophils 1 % (0-10); Hemoglobin 12.7 g/dL (14.0-18.0); Lymphocytes 4 % (21-51); MDiff Complete? YES; Mean Corpuscular HGB CONC 34.1 g/dL (32.0-36.0); Mean Platelet Volume 7.7 fL (7.4-10.4); Monocytes 9 % (0-10); Neutrophil 80 % (42-75); Platelet Count 193 thou/uL (130-400); Platelet Morphology Comment Appears Adequate; RBC Distribution Width 12.4 % (11.5-14.5); Red Blood Cell (RBC) Count 4.25 mill/uL (4.70-6.10); White Blood Cell (WBC) Count 12.6 thou/uL (4.8-10.8)
[2019-05-15 06:06] LABS: ALT (SGPT) 13 U/L (8-55); AST (SGOT) 13 U/L (5-34); Albumin 2.8 g/dL (3.4-4.8); Alkaline Phosphatase 76 U/L (40-150); Anion Gap 15 mmol/L (10-20); BUN (Urea Nitrogen) 19 mg/dL (8.4-25.7); Bilirubin, Total 0.9 mg/dL (0.2-1.2); Calc. Creatinine Clearance 119 mL/min (70-130); Calcium 8.1 mg/dL (7.8-10.44); Carbon Dioxide 19 mmol/L (23-31); Chloride 110 mmol/L (98-107); Estimated GFR-MDRD Greater than 90; Globulin 2.4 g/dL (2.4-3.5); Glucose 165 mg/dL (80-115); Protein, Total 5.2 g/dL (5.8-8.1); Sodium 140 mmol/L (136-145)
[2019-05-15] MEDS: HumaLOG 300 UNITS/3 ML VIAL SC PRN (06:31)
[2019-05-15] MEDS ORDERED: Fentanyl 100 MCG/2 ML VIAL SLOW IVP SCH (07:00)
--- NOTE | 2019-05-15 07:39 | PDOC.HOSPP ---
- Subjective Encounter Date: 05/15/19 Encounter Time: 06:30 non-verbal Subjective: Patient seen and examined for Sepsis/Pneumonia/Resp failure. On Vent. s/p Paracentesis 4 lit. On Levophed - started after paracentesis. No overnight events - Objective Vital Signs & Weight: Vital Signs (12 hours) Temp Pulse Resp BP Pulse Ox 05/15/19 07:00 98.8 F 05/15/19 06:44 109 H 109/75 05/15/19 06:40 107 H 35 H 99 05/15/19 06:00 23 H 05/15/19 04:00 99.1 F 17 05/15/19 02:00 19 05/15/19 00:00 99.0 F 17 98 05/14/19 23:16 106 H 28 H 94 L 05/14/19 22:00 25 H 05/14/19 20:00 99.5 F 32 H Weight Admit Weight 201 lb Weight 193 lb 5.526 oz Most Recent Monitor Data Heart Rate from ECG 110 NIBP 104/71 NIBP BP-Mean 81 Respiration from ECG 34 SpO2 100 I&O: 05/14/19 05/15/19 05/16/19 06:59 06:59 06:59 Intake Total 2409 2428 Output Total 6235 6815 30 [facility] [phone] -30 Result Diagrams: 05/15/19 04:00 05/15/19 05:30 Additional Labs: Accuchecks 05/15/19 05/14/19 05/14/19 00:01 18:13 12:48 POC Glucose 127 H 137 H 119 H EKG Reviewed by me: Yes (Tele SR) Hospitalist ROS - Review of Systems ROS unobtainable: due to endotracheal tube - Medication Medications: Active Medications Generic Name Dose Route Start Last Admin Trade Name Freq PRN Reason Stop Dose Admin Albuterol/Ipratropium 3 ml 05/12/19 13:00 05/15/19 06:40 Duoneb NEB 3 ml [id number] ANDRÉS Administration Aspirin 300 mg 05/12/19 09:00 05/14/19 09:44 Aspirin NV 300 mg DAILY ANDRÉS Administration Baclofen 10 mg 05/10/19 11:58 05/10/19 13:55 Lioresal PO 10 mg TIDPRN PRN Administration Hiccups Heparin Sodium (Porcine) 5,000 units 05/14/19 09:00 05/14/19 20:04 Heparin SC 5,000 units BID ANDRÉS Administration Promethazine HCl 25 mg/ Sodium 51 mls @ 204 mls/hr 05/10/19 20:27 05/12/19 04 :26 Chloride IVPB 51 mls Q6H PRN Administration Nausea Piperacillin Sod/Tazobactam 100 mls @ 200 mls/hr 05/12/19 09:00 05/15/19 02: 51 Sod 3.375 gm/ Sodium Chloride IVPB 100 mls 0300,0900,1500,2100 ANDRÉS Administration Potassium Phosphate 9 mmol/ 103 mls @ 25.75 mls/hr 05/14/19 09:03 05/14/19 09 :50 Sodium Chloride IVPB 103 mls ASDIR PRN Administration Phosphate 1.0-1.8 Norepinephrine Bitartrate 8 mg 250 mls @ 0 mls/hr 05/14/19 14:03 05/14/19 14: 13 / Dextrose/Water IVPB 250 mls INF PRN Administration TO MAINTAIN MAP > 65 Protocol As Directed Insulin Human Lispro 0 units 05/10/19 01:59 05/15/19 06:31 Humalog SC 2 unit .MILD SLIDING SCALE PRN Administration Mild Correctional Scale Lorazepam 2 mg 05/12/19 08:52 05/15/19 02:40 Ativan SLOW IVP 06/11/19 08:52 2 mg Q1H PRN Administration Breakthrough agitation Metoclopramide HCl 10 mg 05/10/19 20:26 05/11/19 20:16 Reglan IVP 10 mg Q8H PRN Administration Abdominal Distention Ondansetron HCl 4 mg 05/10/19 14:23 05/10/19 17:53 Zofran IVP 4 mg Q6H PRN Administration Nausea/Vomiting Ondansetron HCl 4 mg 05/10/19 20:27 05/11/19 23:02 Zofran SLOW IVP 4 mg Q4H PRN Administration Nausea/Vomiting Pantoprazole Sodium 40 mg 05/12/19 09:00 05/14/19 09:44 Protonix IVP 40 mg DAILY ANDRÉS Administration Promethazine HCl 12.5 mg 05/10/19 14:23 05/10/19 14:51 Phenergan IM 12.5 mg Q4H PRN Administration Nausea/Vomiting Propofol 1,000 mg 05/12/19 08:52 05/15/19 03:05 Diprivan IV 06/11/19 08:52 1,000 mg INF PRN Administration TO ACHIEVE GOAL RASS Protocol - Exam General Appearance: NAD Heart: RRR, no gallops Respiratory: rales, rhonchi Gastrointestinal: soft, diminished bowl sounds Hosp A/P (1) Sepsis Code(s): A41.9 - SEPSIS, UNSPECIFIED ORGANISM Status: Acute Qualifiers: Severe sepsis acute organ dysfunction type: acute respiratory failure (2) Aspiration pneumonia Code(s): J69.0 - PNEUMONITIS DUE TO INHALATION OF FOOD AND VOMIT Status: Acute (3) Ileus Code(s): K56.7 - ILEUS, UNSPECIFIED Status: Acute (4) Acute hypoxemic respiratory failure Code(s): J96.01 - ACUTE RESPIRATORY FAILURE WITH HYPOXIA Status: Acute (5) Lactic acidosis Code(s): E87.2 - ACIDOSIS Status: Acute (6) Tachyarrhythmia Code(s): R00.0 - TACHYCARDIA, UNSPECIFIED Status: Acute (7) Type 2 myocardial infarction Code(s): I21.A1 - MYOCARDIAL INFARCTION TYPE 2 Status: Acute (8) N&V (nausea and vomiting) Code(s): R11.2 - NAUSEA WITH VOMITING, UNSPECIFIED Status: Acute Qualifiers: Vomiting Intractability: intractable (9) Moderate protein-calorie malnutrition Code(s): E44.0 - MODERATE PROTEIN-CALORIE MALNUTRITION Status: Acute (10) H/O malignant neoplasm of stomach Code(s): Z85.028 - PERSONAL HISTORY OF OTHER MALIGNANT NEOPLASM OF STOMACH Status: Chronic (11) Hyponatremia Code(s): E87.1 - HYPO-OSMOLALITY AND HYPONATREMIA Status: Acute (12) DM2 (diabetes mellitus, type 2) Status: Chronic Qualifiers: Chronic kidney disease stage: stage 2 (mild) (13) HTN (hypertension) Code(s): I10 - ESSENTIAL (PRIMARY) HYPERTENSION Status: Chronic (14) Hypokalemia Code(s): E87.6 - HYPOKALEMIA Status: Acute (15) Intractable pain Code(s): R52 - PAIN, UNSPECIFIED Status: Acute (16) Hypophosphatemia Code(s): E83.39 - OTHER DISORDERS OF PHOSPHORUS METABOLISM Status: Acute - Plan DVT proph w/heparin, DVT proph w/SCDs, GI proph Await cytolo Cont IV Zosyn One dose Albumin Cont Vent support Cont OG tube suction - 950 ml overnight AM labs Case d/w Dr Whelan
[2019-05-15] MEDS ORDERED: Albumin 25% 25 GM/100 ML BOT IVPB SCH (07:43)
[2019-05-15] MEDS ORDERED: Sodium Chloride 0.9% 250 ML IV SCH (07:45)
--- NOTE | 2019-05-15 07:45 | PDOC.MOPN ---
Interval History: still sedated, paracentesis yesterday and attempt to get off vnet but he became anxious and tachyneic - Vital Signs Vital Signs: Vital Signs (12 hours) Temp Pulse Resp BP Pulse Ox 05/15/19 07:00 98.8 F 05/15/19 06:44 109 H 109/75 05/15/19 06:40 107 H 35 H 99 05/15/19 06:00 23 H 05/15/19 04:00 99.1 F 17 05/15/19 02:00 19 05/15/19 00:00 99.0 F 17 98 05/14/19 23:16 106 H 28 H 94 L 05/14/19 22:00 25 H 05/14/19 20:00 99.5 F 32 H Weight Admit Weight 201 lb Weight 193 lb 5.526 oz Most Recent Monitor Data Heart Rate from ECG 110 NIBP 104/71 NIBP BP-Mean 81 Respiration from ECG 34 SpO2 100 - Physical Exam General: Other (sedated/intubated) Lungs: Clear to auscultation, Other Cardiovascular: Regular rate Abdomen: Normal bowel sounds, Other (softer, less distended after paracentesis) Skin: No rashes - Labs Result Diagrams: 05/15/19 04:00 05/15/19 05:30 Lab results: Laboratory Results - last 24 hr 05/15/19 05:30: Phosphorus 3.0 05/15/19 05:30: Sodium 140, Potassium 4.0, Chloride 110 H, Carbon Dioxide 19 L, Anion Gap 15, BUN 19, Creatinine 0.78, Estimated GFR (MDRD) Greater than 90, Glucose 165 H, Calcium 8.1, Total Bilirubin 0.9, AST 13, ALT 13, Alkaline Phosphatase 76, Serum Total Protein 5.2 L, Albumin 2.8 L, Globulin 2.4, Albumin/ Globulin Ratio 1.2 05/15/19 04:00: WBC 12.6 H, RBC 4.25 L, Hgb 12.7 L, Hct 37.4 L, MCV 88.0, MCH 30.0, MCHC 34.1, RDW 12.4, Plt Count 193, MPV 7.7, Neutrophils % (Manual) 80 H, Band Neuts % (Manual) 6, Lymphocytes % (Manual) 4 L, Monocytes % (Manual) 9, Eosinophils % (Manual) 1, Plt Morphology Comment Appears Adequate 05/15/19 00:01: POC Glucose 127 H 05/14/19 18:13: POC Glucose 137 H 05/14/19 12:48: POC Glucose 119 H 05/14/19 12:05: Fluid Glucose 111 05/14/19 12:03: Fluid Source Ascites Body Fluid, Fluid Tube Number 1, Fluid Color Yellow, Fluid Clarity Hazy H, Fluid WBC 445, Fluid RBC 600, Fluid Seg Neutrophil % 10, Fluid Lymphocytes % 62, Fluid Eosinophils % 1, Non- Hematological % 27, Fluid Comment Note: 05/14/19 12:03: Fluid Total Protein 2.6 A/P - Problem (1) Aspiration into airway Current Visit: Yes Code(s): T17.908A - UNSP FB IN RESP TRACT, PART UNSP CAUSING OTH INJURY, INIT Status: Acute (2) Acute hypoxemic respiratory failure Current Visit: Yes Code(s): J96.01 - ACUTE RESPIRATORY FAILURE WITH HYPOXIA Status: Acute (3) N&V (nausea and vomiting) Current Visit: Yes Code(s): R11.2 - NAUSEA WITH VOMITING, UNSPECIFIED Status : Acute (4) H/O malignant neoplasm of stomach Current Visit: Yes Code(s): Z85.028 - PERSONAL HISTORY OF OTHER MALIGNANT NEOPLASM OF STOMACH Status: Chronic - Plan Plan: 1. attempt to wean again today 2. start ppn 3. consider fentanyl patch, 25 mcg 4. he remains full code
[2019-05-15] MEDS: Heparin 5,000 UNITS/ML VIAL SC SCH ×2 (09:16→21:36)
[2019-05-15] MEDS: Aspirin 300 MG Suppository PR SCH (09:16)
[2019-05-15] MEDS: Pantoprazole 40 MG VIAL IVP SCH (09:17)
[2019-05-15] MEDS ORDERED: Sodium Chloride 0.9% 1,000 ML IV SCH (13:15)
[2019-05-15] MEDS ORDERED: diphenhydrAMINE 50 MG/ML VIAL IVP SCH ×2 (14:30→22:00)
[2019-05-15] MEDS: Dextrose 5 %-0.45 % NaCl 1,000 ML IV SCH (14:41)
--- NOTE | 2019-05-15 14:55 | PRG ---
DATE OF SERVICE: 05/15/2019 SERVICE: Pulmonary Medicine. INTERVAL HISTORY: The patient is doing absolutely wonderful from a Respiratory standpoint. His FiO2 was decreased to 21%. He cannot provide much in the way of elements of the history. He requires significant sedation in order to stay comfortable. Whenever we lined him up, he becomes more tachypneic and tachycardic. It is likely secondary to withdrawal from opiates. PHYSICAL EXAMINATION: VITAL SIGNS: Afebrile, pulse 82, blood pressure 87/63, respirations 19, and saturation is 99%, currently on 21% FiO2 and a PEEP of 5. GENERAL: The patient is intubated and sedated. HEENT: Normocephalic and atraumatic. Sclerae white. Conjunctivae pink. Oral mucosa is moist without lesions. LUNGS: Wonderful air entry. Some rhonchi are present, but there is no prolonged expiratory phase or wheezing. HEART: Normal rate and regular. ABDOMEN: Soft, nontender, and nondistended. Bowel sounds are positive. MUSCULOSKELETAL: No cyanosis or clubbing. No pitting in bilateral lower extremities. NEUROLOGIC: Grossly nonfocal. LABORATORY DATA: WBC 12.6, hemoglobin 12.7, and platelets 193,000. Band count continues to improve. Neutrophil count is increased to 80%. Basic metabolic profile is unremarkable except for a downtrending bicarb and a minimally up- trending anion gap. Creatinine and liver function studies are otherwise unremarkable. Phosphorus is normal. Albumin 1.6, total albumin 2.8 with a SAAG greater than 1.1. The lymphocyte cells predominate. ASSESSMENT: 1. Acute hypoxic respiratory failure, resolved. 2. Healthcare-associated pneumonia, secondary to gross aspiration event. 3. Ileus. 4. Bilateral pleural effusions, moderate to large. 5. Ascites, status post paracentesis, pathology pending. 6. Severe sepsis, resolving. 7. Gastric cancer. 8. Type 2 diabetes mellitus. DISCUSSION AND PLAN: The patient is going to be placed on a spontaneous breathing trial. If he meets criteria, extubation will be considered. I will initiate a Precedex drip to see if we can get him off the propofol altogether. I am a little hesitant to give him significant doses of narcotics to have excellent pain control given his underlying horrendous ileus. He does have increasing bowel movements today compared to the last 2 days. As such, I am hopeful that his GI function will start to improve and will see a decrease in his OG tube output. Once this happens, we will be able to clamp that OG tube. I am going to put an NG tube down and remove the OG tube when he is extubated. Pulmonary/Critical Care will continue to follow very closely. CRITICAL CARE TIME: 30 minutes. Job ID: [id number] MTDD
[2019-05-15] MEDS: Methylnaltrexone 12 MG/0.6 ML VIAL SC SCH (16:45)
--- NOTE | 2019-05-15 16:57 | PRG ---
DATE OF SERVICE: 05/15/2019 REASON FOR CONSULTATION: Gastric adenocarcinoma, ileus. SUBJECTIVE: Mr. Ernandez still remains intubated, but has had a sedation holiday today and was able to move with some purpose as well as follow some commands. In terms of respiratory standpoint, he has been doing better with possible plans for extubation tomorrow. He did have a paracentesis yesterday with removal of approximately 4 L of fluid, but continues to have high output from his orogastric tube with approximately 22 mL within the last 24 hours. He has not had a bowel movement thus far. OBJECTIVE: VITAL SIGNS: Temperature 98.5, pulse 76, blood pressure 100/74, respiratory rate 18, and saturating 98% on mechanical ventilation. GENERAL: The patient was lying in bed, in no acute distress, was able to follow simple commands, but minimally alert and responsive. CARDIOVASCULAR: Regular rate and rhythm, but difficult to discern any murmurs, gallops, or rubs due to mechanical ventilation. RESPIRATORY: Coarse breath sounds heard on all lung prabhakar consistent with mechanical ventilation. ABDOMEN: Hypoactive bowel sounds. Soft. Mild abdominal distention. Mild grimacing to palpation in the midepigastric region. EXTREMITIES: No cyanosis, clubbing, or edema. LABORATORY DATA: CBC with a white blood cell count of 12.6, hemoglobin 12.7, hematocrit 37.4, platelets 193. Chemistry with a sodium of 140, potassium 4, chloride 110, CO2 of 19, BUN 19, creatinine 0.78, glucose 165. IMAGING STUDIES: No current GI imaging is available for review. 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 Ileus. The patient is presenting with what appears to be an ileus based on his significant OG tube output as well as imaging at this time. The etiology for his ileus is likely multifactorial given the metastatic disease from his gastric adenocarcinoma, chemotherapy, and/or pain medication (narcotics) contributing to decreased GI motility. At this time, he continues to have significant output on his OG tube indicating that he still continues to have limited GI motility and would be increased risk of aspiration while off mechanical ventilation. Recommendations: 1. We would attempt to minimize any unneeded narcotic medications or any medications that might impair gastrointestinal motility. 2. I will add subcutaneous methylnaltrexone for opiate reversal on the gut in an attempt to improve GI motility. 3. If this is due to his gastro-adenocarcinoma, then would defer to Oncology Service for any additional recommendations. 4. We would continue NG tube at low intermittent wall suction. Ascites. The patient is also presenting with increased abdominal wall distention with a significant amount of abdominal fluid consistent with ascites. 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 Paracentesis was performed on May 14, 2019, with fluid analysis showing no evidence of SBP, but cytology is still pending at this time for possible malignant cells. Recommendations: 1. We would follow up on the cytology for the presence of malignant cells. 2. We would consider paracentesis as needed if increasing abdominal distention/ascites likely from a malignant process. 3. We will continue to follow. Please call with any questions. Job ID: [id number]
[2019-05-15] MEDS: Senokot S 8.6-50 MG TAB PO SCH (21:36)
[2019-05-15] MEDS: Metoclopramide HCl 10 MG/2 ML VIAL IVP SCH (21:36)
[2019-05-16] MEDS: Propofol 1,000 MG/100 ML VIAL IV PRN ×3 (03:06→16:48)
[2019-05-16] MEDS: Dextrose 5 %-0.45 % NaCl 1,000 ML IV SCH ×2 (03:06→16:48)
[2019-05-16] MEDS: Piperacillin/Tazobactam 3.375 GM in Sodium Chloride 0.9% 100 ML IVPB SCH ×4 (03:06→20:50)
[2019-05-16 05:13] LABS: Band 2 % (5-11); Hypochromia SLIGHT = 6-15 cells (100X) (0-5/hpf); Lymphocytes 2 % (21-51); MDiff Complete? YES; Mean Corpuscular HGB CONC 34.4 g/dL (32.0-36.0); Mean Corpuscular Hemoglobin 30.2 pg (27.0-31.0); Mean Corpuscular Volume 87.9 fL (78.0-98.0); Mean Platelet Volume 7.7 fL (7.4-10.4); Monocytes 5 % (0-10); Neutrophil 91 % (42-75); Platelet Count 197 thou/uL (130-400); Platelet Morphology Comment Appears Adequate; RBC Distribution Width 12.5 % (11.5-14.5); Red Blood Cell (RBC) Count 4.29 mill/uL (4.70-6.10); White Blood Cell (WBC) Count 10.8 thou/uL (4.8-10.8)
[2019-05-16 05:28] LABS: ALT (SGPT) 12 U/L (8-55); AST (SGOT) 11 U/L (5-34); Albumin 2.7 g/dL (3.4-4.8); Alkaline Phosphatase 67 U/L (40-150); Anion Gap 11 mmol/L (10-20); BUN (Urea Nitrogen) 14 mg/dL (8.4-25.7); Bilirubin, Total 1.9 mg/dL (0.2-1.2); Calc. Creatinine Clearance 132 mL/min (70-130); Calcium 7.9 mg/dL (7.8-10.44); Carbon Dioxide 21 mmol/L (23-31); Chloride 111 mmol/L (98-107); Estimated GFR-MDRD Greater than 90; Glucose 175 mg/dL (80-115); Potassium 3.8 mmol/L (3.5-5.1); Protein, Total 4.7 g/dL (5.8-8.1); Sodium 139 mmol/L (136-145)
[2019-05-16] MEDS: Metoclopramide HCl 10 MG/2 ML VIAL IVP SCH ×3 (05:43→22:35)
--- NOTE | 2019-05-16 09:04 | PRG ---
DATE OF SERVICE: 05/16/2019 SUBJECTIVE: Remains in the ICU. He is intubated on the vent. OBJECTIVE: VITAL SIGNS: Pulse 84, blood pressure 101/92, saturations 90%, respiratory rate 18. His I's and O's 2428 in, 6815 out. Negative balance. GENERAL: Awake, alert, and responsive. CHEST: Decreased breath sounds without any wheezing. CARDIAC: Sinus tach. ABDOMEN: Soft. LABORATORY DATA: White count 10,000, H and H 13 and 37, left shift. Lytes are normal. Albumin is low. IMAGING STUDIES: Last chest x-ray 2 years ago showed significant pleural effusion. IMPRESSION: Respiratory failure, probably aspiration; history of gastric cancer; status post paracentesis. PLAN: I am not so sure he is weanable at this stage. X-ray being ordered. Continue supportive care and PT. Empiric antibiotics. We will follow. One-half hour critical care time. Job ID: [id number]
--- NOTE | 2019-05-16 09:08 | RAD ---
EXAM: Portable chest PROVIDED CLINICAL HISTORY: Respiratory insufficiency COMPARISON: 05/14/2019 FINDINGS: Significant interval change with respect to the prior examination is not apparent. IMPRESSION: As above.
[2019-05-16] MEDS: Heparin 5,000 UNITS/ML VIAL SC SCH ×2 (09:43→20:50)
[2019-05-16] MEDS: Senokot S 8.6-50 MG TAB PO SCH ×2 (09:43→20:50)
[2019-05-16] MEDS: Albumin 25% 25 GM/100 ML BOT IVPB SCH (09:43)
[2019-05-16] MEDS: Pantoprazole 40 MG VIAL IVP SCH (09:43)
[2019-05-16] MEDS: Aspirin 300 MG Suppository PR SCH (09:43)
--- NOTE | 2019-05-16 12:40 | PDOC.MOPN ---
Interval History: responds to stimulation, nods and follows simple commands. - Vital Signs Vital Signs: Vital Signs (12 hours) Temp Pulse Resp BP Pulse Ox 05/16/19 12:00 99.8 F H 29 H 05/16/19 10:00 24 H 05/16/19 09:36 71 103/69 05/16/19 08:00 20 05/16/19 07:53 75 90/62 05/16/19 07:47 100 05/16/19 07:00 99.9 F H 05/16/19 06:00 25 H 05/16/19 04:00 99.5 F 29 H 05/16/19 02:56 78 29 H 99 05/16/19 02:00 19 Weight Admit Weight 201 lb 11.2 oz Weight 194 lb 0.108 oz Most Recent Monitor Data Heart Rate from ECG 71 NIBP 101/61 NIBP BP-Mean 68 Respiration from ECG 31 SpO2 100 - Physical Exam General: Other (diprivan) HEENT: Atraumatic, PERRLA, EOMI, Mucous membr. moist/pink Lungs: Other (rhonchi) Cardiovascular: Regular rate Abdomen: Other (OGT) Extremities: Other Neurological: Other (intubated) - Labs Result Diagrams: 05/16/19 04:35 05/16/19 04:35 Lab results: Laboratory Results - last 24 hr 05/16/19 11:12: POC Glucose 175 H 05/16/19 04:35: Phosphorus 2.0 L 05/16/19 04:35: Sodium 139, Potassium 3.8, Chloride 111 H, Carbon Dioxide 21 L, Anion Gap 11, BUN 14, Creatinine 0.70, Estimated GFR (MDRD) Greater than 90, Glucose 175 H, Calcium 7.9, Total Bilirubin 1.9 H, AST 11, ALT 12, Alkaline Phosphatase 67, Serum Total Protein 4.7 L, Albumin 2.7 L, Globulin 2.0 L, Albumin/Globulin Ratio 1.4 05/16/19 04:35: WBC 10.8, RBC 4.29 L, Hgb 13.0 L, Hct 37.7 L, MCV 87.9, MCH 30.2 , MCHC 34.4, RDW 12.5, Plt Count 197, MPV 7.7, Neutrophils % (Manual) 91 H, Band Neuts % (Manual) 2 L, Lymphocytes % (Manual) 2 L, Monocytes % (Manual) 5, Hypochromia SLIGHT = 6-15 cells, Plt Morphology Comment Appears Adequate 05/15/19 22:25: POC Glucose 146 H 05/15/19 16:06: POC Glucose 132 H Status: lab reviewed by me A/P - Problem (1) Acute hypoxemic respiratory failure Current Visit: Yes Code(s): J96.01 - ACUTE RESPIRATORY FAILURE WITH HYPOXIA Status: Acute (2) H/O malignant neoplasm of stomach Current Visit: Yes Code(s): Z85.028 - PERSONAL HISTORY OF OTHER MALIGNANT NEOPLASM OF STOMACH Status: Chronic - Plan Plan: Weaning per Pulmonary, now on precidex Supportive care Spoke with Pratik, patients son.
[2019-05-16] MEDS ORDERED: diphenhydrAMINE 50 MG/ML VIAL IVP SCH (14:00)
--- NOTE | 2019-05-16 18:45 | PDOC.HOSPP ---
- Subjective Encounter Date: 05/16/19 Encounter Time: 16:00 non-verbal Subjective: Patient seen and examined for Sepsis/Aspiration/ Resp failure. On Vent. No overnight events - Objective Vital Signs & Weight: Vital Signs (12 hours) Temp Pulse Resp BP Pulse Ox 05/16/19 18:00 21 H 05/16/19 16:00 63 25 H 125/76 05/16/19 15:00 98.5 F 05/16/19 14:00 27 H 05/16/19 13:35 81 05/16/19 13:21 68 100/65 05/16/19 12:00 99.8 F H 29 H 05/16/19 10:00 24 H 05/16/19 09:36 71 103/69 05/16/19 08:00 20 05/16/19 07:53 75 90/62 05/16/19 07:47 100 05/16/19 07:00 99.9 F H Weight Admit Weight 201 lb 11.2 oz Weight 194 lb 0.108 oz Most Recent Monitor Data Heart Rate from ECG 71 NIBP 130/79 NIBP BP-Mean 87 Respiration from ECG 23 SpO2 97 I&O: 05/15/19 05/16/19 05/17/19 06:59 06:59 06:59 Intake Total 2428 2849.5 1241 Output Total 6815 2245 710 Balance -4387 604.5 531 Result Diagrams: 05/16/19 04:35 05/16/19 04:35 Additional Labs: Accuchecks 05/16/19 05/16/19 05/15/19 16:21 11:12 22:25 POC Glucose 148 H 175 H 146 H 05/15/19 16:06 POC Glucose 132 H EKG Reviewed by me: Yes (Tele SR) Hospitalist ROS - Review of Systems ROS unobtainable: due to endotracheal tube - Medication Medications: Active Medications Generic Name Dose Route Start Last Admin Trade Name Freq PRN Reason Stop Dose Admin Albumin Human 25 gm 05/16/19 09:15 05/16/19 09:43 Albumin 25% IVPB 05/17/19 09:16 25 gm NOW ANDRÉS Administration Albuterol/Ipratropium 3 ml 05/12/19 13:00 05/16/19 13:21 Duoneb NEB 3 ml [id number] ANDRÉS Administration Aspirin 300 mg 05/12/19 09:00 05/16/19 09:43 Aspirin AL 300 mg DAILY ANDRÉS Administration Baclofen 10 mg 05/10/19 11:58 05/10/19 13:55 Lioresal PO 10 mg TIDPRN PRN Administration Hiccups Fentanyl 25 mcg 05/16/19 09:00 05/16/19 10:42 Duragesic TD 25 mcg Q3D ANDRÉS Administration Heparin Sodium (Porcine) 5,000 units 05/14/19 09:00 05/16/19 09:43 Heparin SC 5,000 units BID ANDRÉS Administration Piperacillin Sod/Tazobactam 100 mls @ 200 mls/hr 05/12/19 09:00 05/16/19 14: 00 Sod 3.375 gm/ Sodium Chloride IVPB 100 mls 0300,0900,1500,2100 ANDRÉS Administration Potassium Phosphate 9 mmol/ 103 mls @ 25.75 mls/hr 05/14/19 09:03 05/14/19 09 :50 Sodium Chloride IVPB 103 mls ASDIR PRN Administration Phosphate 1.0-1.8 Norepinephrine Bitartrate 8 mg 250 mls @ 0 mls/hr 05/14/19 14:03 05/14/19 14: 13 / Dextrose/Water IVPB 250 mls INF PRN Administration TO MAINTAIN MAP > 65 Protocol As Directed Dextrose/Sodium Chloride 1,000 mls @ 75 mls/hr 05/15/19 14:30 05/16/19 16:48 D5 1/2 Ns IV 1,000 mls .[id number] ANDRÉS Administration Dexmedetomidine HCl 400 mcg/ 100 mls @ 0 mls/hr 05/16/19 11:00 05/16/19 16:58 Sodium Chloride IVPB 100 mls INF PRN Administration .PRN Protocol Titrate Insulin Human Lispro 0 units 05/10/19 01:59 05/15/19 06:31 Humalog SC 2 unit .MILD SLIDING SCALE PRN Administration Mild Correctional Scale Lorazepam 2 mg 05/12/19 08:52 05/15/19 02:40 Ativan SLOW IVP 06/11/19 08:52 2 mg Q1H PRN Administration Breakthrough agitation Methylnaltrexone [place] 12 mg 05/15/19 16:00 05/15/19 16:45 Relistor SC 12 mg Q2D@1600 ANDRÉS Administration Metoclopramide HCl 10 mg 05/15/19 22:00 05/16/19 13:50 Reglan IVP 05/17/19 06:01 10 mg Q8HR ANDRÉS Administration Ondansetron HCl 4 mg 05/10/19 20:27 05/11/19 23:02 Zofran SLOW IVP 4 mg Q4H PRN Administration Nausea/Vomiting Pantoprazole Sodium 40 mg 05/12/19 09:00 05/16/19 09:43 Protonix IVP 40 mg DAILY ANDRÉS Administration Propofol 1,000 mg 05/12/19 08:52 05/16/19 16:48 Diprivan IV 06/11/19 08:52 1,000 mg INF PRN Administration TO ACHIEVE GOAL RASS Protocol Senna/Docusate Sodium 1 tab 05/15/19 21:00 05/16/19 09:43 Senokot S PO 1 tab BID ANDRÉS Administration - Exam General Appearance: NAD Neck: supple, no JVD Heart: RRR, no gallops Respiratory: rales (at bases), rhonchi Gastrointestinal: soft, diminished bowl sounds Extremities: no edema Hosp A/P (1) Sepsis Code(s): A41.9 - SEPSIS, UNSPECIFIED ORGANISM Status: Acute Qualifiers: Severe sepsis acute organ dysfunction type: acute respiratory failure (2) Aspiration pneumonia Code(s): J69.0 - PNEUMONITIS DUE TO INHALATION OF FOOD AND VOMIT Status: Acute (3) Ileus Code(s): K56.7 - ILEUS, UNSPECIFIED Status: Acute (4) Acute hypoxemic respiratory failure Code(s): J96.01 - ACUTE RESPIRATORY FAILURE WITH HYPOXIA Status: Acute (5) Lactic acidosis Code(s): E87.2 - ACIDOSIS Status: Acute (6) Tachyarrhythmia Code(s): R00.0 - TACHYCARDIA, UNSPECIFIED Status: Acute (7) Type 2 myocardial infarction Code(s): I21.A1 - MYOCARDIAL INFARCTION TYPE 2 Status: Acute (8) N&V (nausea and vomiting) Code(s): R11.2 - NAUSEA WITH VOMITING, UNSPECIFIED Status: Acute Qualifiers: Vomiting Intractability: intractable (9) Moderate protein-calorie malnutrition Code(s): E44.0 - MODERATE PROTEIN-CALORIE MALNUTRITION Status: Acute (10) H/O malignant neoplasm of stomach Code(s): Z85.028 - PERSONAL HISTORY OF OTHER MALIGNANT NEOPLASM OF STOMACH Status: Chronic (11) Hyponatremia Code(s): E87.1 - HYPO-OSMOLALITY AND HYPONATREMIA Status: Acute (12) DM2 (diabetes mellitus, type 2) Status: Chronic Qualifiers: Chronic kidney disease stage: stage 2 (mild) (13) HTN (hypertension) Code(s): I10 - ESSENTIAL (PRIMARY) HYPERTENSION Status: Chronic (14) Hypokalemia Code(s): E87.6 - HYPOKALEMIA Status: Acute (15) Intractable pain Code(s): R52 - PAIN, UNSPECIFIED Status: Acute (16) Hypophosphatemia Code(s): E83.39 - OTHER DISORDERS OF PHOSPHORUS METABOLISM Status: Acute - Plan DVT proph w/lovenox, DVT proph w/SCDs On Levophed Cont IV Zosyn for Aspiration Cont Vent support Critical care/GI/Oncology following Cont OG tube suction AM labs
--- NOTE | 2019-05-16 21:12 | PRG ---
DATE OF SERVICE: 05/16/2019 REASON FOR CONSULTATION: Gastric adenocarcinoma, ileus. SUBJECTIVE: Per nursing staff, the patient had decreased output from his OG tube both last night and this morning with the patient only filling of approximately 25% of the canister today. Upon evaluation of the patient now, he has had approximately 710 mL out of his OG tube when compared to 2200 yesterday. He has been given one dose of the methylnaltrexone thus far with the next dose is scheduled for tomorrow. Otherwise, the patient is doing well and currently intubated and sedated. Unfortunately, though, he has not had a bowel movement thus far. OBJECTIVE: VITAL SIGNS: Temperature 98.5, pulse 73, blood pressure 130/79, respiratory rate 23, and saturating 99% on mechanical ventilation. GENERAL: The patient is lying in bed, in no acute distress, intubated and sedated and unable to follow commands. CARDIOVASCULAR: Regular rate and rhythm. RESPIRATORY: Coarse breath sounds heard in all lung prabhakar consistent with mechanical ventilation. ABDOMEN: Hypoactive bowel sounds. Soft. Mild abdominal distention. No grimacing to palpation in all abdominal quadrants. EXTREMITIES: No cyanosis, clubbing, or edema. LABORATORY DATA: CBC with a white blood cell count of 10.8, hemoglobin 13, hematocrit 37.7, and platelets 197. Chemistry with a sodium of 139, potassium 3.8, chloride 111, CO2 21, BUN 14, creatinine 0.7, glucose 175, AST 11, ALT 12, alkaline phosphatase 67, total bilirubin 1.9. IMAGING DATA: No current GI imaging is available for review. ASSESSMENT AND PLAN: The patient is a 64-year-old male with past medical history of diabetes, hypertension, opiate-induced constipation, and stage IV gastric adenocarcinoma with peritoneal carcinomatosis, presenting with small bowel ileus, ascites, and aspiration pneumonia along with his metastatic disease. Ileus: The patient is presenting with a clinical picture consistent with a small bowel/colonic ileus given the amount of fluid that has been obtained on low intermittent wall suction through his OG tube; however, with the administration of methylnaltrexone and reversal of the opiate effects on the gut, he has had a significant decrease in his OG tube output with approximately 710 mL over the last 24 hours. At this time, it is unclear, which may be contributing to his ileus with the differential including the adenocarcinoma itself, recent chemotherapy, or pain medications contributing to his decreased GI motility. Recommendations: 1. Would attempt to minimize any unneeded narcotic medications or any medications that might impair gastrointestinal motility. 2. Continue methylnaltrexone for opiate reversal in the gut in an attempt to improve GI motility. 3. Deferred the Oncology Service for further treatment related to his gastric adenocarcinoma. 4. Would continue NG tube at low intermittent wall suction. If the patient is to be extubated any time soon, I would recommend continuation of an NG tube shortly thereafter to continue monitoring of his ileus. Ascites: The patient presented with increased abdominal distention and significant amount of abdominal fluid consistent with ascites. He ultimately underwent paracentesis on May 14, 2019, with fluid analysis showing no evidence of SBP with cytology still pending at this time. Recommendations: 1. Would follow up on the cytology for the presence of malignant cells. 2. Would consider repeating a paracentesis if needed for increasing abdominal distention/comfort. We will continue to follow. Please call with any questions. Job ID: [id number]
[2019-05-17] MEDS: Propofol 1,000 MG/100 ML VIAL IV PRN ×2 (00:31→06:32)
[2019-05-17] MEDS: Piperacillin/Tazobactam 3.375 GM in Sodium Chloride 0.9% 100 ML IVPB SCH ×4 (03:58→20:42)
[2019-05-17 04:53] LABS: Band 7 % (5-11); Hemoglobin 12.7 g/dL (14.0-18.0); Lymphocytes 10 % (21-51); MDiff Complete? YES; Mean Corpuscular Hemoglobin 29.7 pg (27.0-31.0); Mean Corpuscular Volume 87.3 fL (78.0-98.0); Mean Platelet Volume 7.7 fL (7.4-10.4); Monocytes 5 % (0-10); Neutrophil 78 % (42-75); Platelet Count 197 thou/uL (130-400); Platelet Morphology Comment Appears Adequate; RBC Distribution Width 12.4 % (11.5-14.5); RBC Morphology Normal; Red Blood Cell (RBC) Count 4.29 mill/uL (4.70-6.10); White Blood Cell (WBC) Count 8.2 thou/uL (4.8-10.8)
[2019-05-17 04:57] LABS: ALT (SGPT) 19 U/L (8-55); AST (SGOT) 25 U/L (5-34); Albumin 2.8 g/dL (3.4-4.8); Alkaline Phosphatase 72 U/L (40-150); Anion Gap 9 mmol/L (10-20); BUN (Urea Nitrogen) 11 mg/dL (8.4-25.7); Calc. Creatinine Clearance 131 mL/min (70-130); Calcium 7.9 mg/dL (7.8-10.44); Carbon Dioxide 23 mmol/L (23-31); Chloride 108 mmol/L (98-107); Estimated GFR-MDRD Greater than 90; Glucose 184 mg/dL (80-115); Potassium 3.5 mmol/L (3.5-5.1); Protein, Total 4.8 g/dL (5.8-8.1); Sodium 136 mmol/L (136-145)
[2019-05-17 04:59] LABS: Phosphorus 1.9 mg/dL (2.3-4.7)
[2019-05-17] MEDS: Metoclopramide HCl 10 MG/2 ML VIAL IVP SCH (06:00)
[2019-05-17] MEDS ORDERED: diphenhydrAMINE 50 MG/ML VIAL IVP SCH (06:00)
[2019-05-17] MEDS ORDERED: Potassium Phosphate 21 MMOL in Sodium Chloride 0.9% 250 ML 250 ML IVPB SCH (06:15)
--- NOTE | 2019-05-17 07:48 | RAD ---
EXAM: Portable chest PROVIDED CLINICAL HISTORY: Respiratory insufficiency COMPARISON: 05/16/2019 FINDINGS: Significant interval change with respect to the prior examination is not apparent. IMPRESSION: As above.
[2019-05-17] MEDS: Senokot S 8.6-50 MG TAB PO SCH ×2 (08:58→20:43)
[2019-05-17] MEDS: Heparin 5,000 UNITS/ML VIAL SC SCH ×2 (08:59→20:42)
[2019-05-17] MEDS: Pantoprazole 40 MG VIAL IVP SCH (08:59)
[2019-05-17] MEDS ORDERED: Aspirin 81 mg Enteric Coated Tablet PO SCH (09:15)
[2019-05-17] MEDS ORDERED: DC Sedation Protocol FS ONE (09:26)
--- NOTE | 2019-05-17 09:36 | PRG ---
DATE OF SERVICE: 05/17/2019 SUBJECTIVE: Campos Ernandez is a 64-year-old gentleman. He is on Precedex. This morning, he is awake, responsive, no distress. OBJECTIVE: VITAL SIGNS: Pulse 73, blood pressure 100/69, respirations 18, and afebrile. I's and O's; 2849 in and 2245 out. CHEST: Bilateral rhonchi. CARDIAC: Normal S1 and S2. No gallops. ABDOMEN: Distended. LABORATORY DATA: Lytes are normal. Albumin is low. White count 8000, H and H are 12 and 37. IMAGING DATA: X-ray still shows bilateral pleural effusion. ASSESSMENT: 1. Respiratory failure, bilateral pleural effusion. 2. Metastatic gastric cancer, large ascites, status post paracentesis. 3. Nausea, vomiting, ileus. PLAN: I am going to extubate the patient. Continue PT, supportive care. May require placement of an NG tube if he remains nauseated. Prognosis remains guarded. Await input from Oncology. One-half hour of critical care time. Job ID: [id number]
[2019-05-17] MEDS: Aspirin 300 MG Suppository PR SCH (10:12)
[2019-05-17] MEDS: Albumin 25% 25 GM/100 ML BOT IVPB SCH (10:16)
[2019-05-17] MEDS: Dextrose 5 %-0.45 % NaCl 1,000 ML IV SCH (11:12)
[2019-05-17] MEDS: D5W-AA 4.25% with LYTES 1,000 ML IV SCH ×2 (11:12→17:32)
--- NOTE | 2019-05-17 11:26 | PDOC.MOPN ---
Interval History: Patient awake. Has been extubated - Vital Signs Vital Signs: Vital Signs (12 hours) Temp Pulse Resp BP Pulse Ox 05/17/19 09:25 99 05/17/19 08:00 21 H 05/17/19 07:47 73 100/69 05/17/19 07:41 99 05/17/19 07:00 99.6 F 05/17/19 06:00 22 H 05/17/19 04:00 99.4 F 25 H 05/17/19 02:00 24 H 05/17/19 01:38 98 105/78 05/17/19 00:34 95 22 H 98 05/17/19 00:00 98.7 F 31 H Weight Admit Weight 201 lb 11.2 oz Weight 194 lb 14.218 oz Most Recent Monitor Data Heart Rate from ECG 114 NIBP 99/71 NIBP BP-Mean 77 Respiration from ECG 40 SpO2 98 - Physical Exam General: Alert Lungs: Other Cardiovascular: Other (tachycardia) Abdomen: Other (NGT) Neurological: Other (follows) - Labs Result Diagrams: 05/17/19 04:22 05/17/19 04:22 Lab results: Laboratory Results - last 24 hr 05/17/19 10:21: POC Glucose 165 H 05/17/19 04:22: Phosphorus 1.9 L, Magnesium 2.0 05/17/19 04:22: Sodium 136, Potassium 3.5, Chloride 108 H, Carbon Dioxide 23, Anion Gap 9 L, BUN 11, Creatinine 0.71, Estimated GFR (MDRD) Greater than 90, Glucose 184 H, Calcium 7.9, Total Bilirubin 2.0 H, AST 25, ALT 19, Alkaline Phosphatase 72, Serum Total Protein 4.8 L, Albumin 2.8 L, Globulin 2.0 L, Albumin/Globulin Ratio 1.4 05/17/19 04:22: WBC 8.2, RBC 4.29 L, Hgb 12.7 L, Hct 37.4 L, MCV 87.3, MCH 29.7 , MCHC 34.0, RDW 12.4, Plt Count 197, MPV 7.7, Neutrophils % (Manual) 78 H, Band Neuts % (Manual) 7, Lymphocytes % (Manual) 10 L, Monocytes % (Manual) 5, Plt Morphology Comment Appears Adequate, RBC Morph Comment Normal 05/16/19 22:56: POC Glucose 159 H 05/16/19 16:21: POC Glucose 148 H Status: lab reviewed by me A/P - Problem (1) Acute hypoxemic respiratory failure Current Visit: Yes Code(s): J96.01 - ACUTE RESPIRATORY FAILURE WITH HYPOXIA Status: Acute (2) H/O malignant neoplasm of stomach Current Visit: Yes Code(s): Z85.028 - PERSONAL HISTORY OF OTHER MALIGNANT NEOPLASM OF STOMACH Status: Chronic - Plan Plan: Continue NGT per GI recs suuportive care spoke with family
[2019-05-17] MEDS ORDERED: Dextrose 5 %-0.45 % NaCl 1,000 ML IV SCH (15:07)
[2019-05-17] MEDS ORDERED: cloNIDine 0.1mg/24 Hour PATCH TD SCH (16:00)
--- NOTE | 2019-05-17 16:16 | PDOC.HOSPP ---
- Subjective Encounter Date: 05/17/19 Encounter Time: 09:00 Subjective: Patient seen and examined for Sepsis/Resp failure. On [facility] Vent.No overnight events - Objective Vital Signs & Weight: Vital Signs (12 hours) Temp Pulse Resp BP Pulse Ox 05/17/19 15:00 98.7 F 05/17/19 12:00 98.9 F 05/17/19 09:25 99 05/17/19 08:00 21 H 05/17/19 07:47 73 100/69 05/17/19 07:41 99 05/17/19 07:00 99.6 F 05/17/19 06:00 22 H Weight Admit Weight 201 lb 11.2 oz Weight 194 lb 14.218 oz Most Recent Monitor Data Heart Rate from ECG 132 NIBP 104/84 NIBP BP-Mean 90 Respiration from ECG 23 SpO2 97 I&O: 05/16/19 05/17/19 05/18/19 06:59 06:59 06:59 Intake Total 2849.5 2814.4 300 Output Total 2245 1470 225 Balance 604.5 1344.4 75 Result Diagrams: 05/17/19 04:22 05/17/19 04:22 Additional Labs: Accuchecks 05/17/19 05/16/19 05/16/19 10:21 22:56 16:21 POC Glucose 165 H 159 H 148 H EKG Reviewed by me: Yes (Tele SR) Hospitalist ROS - Review of Systems ROS unobtainable: due to endotracheal tube - Medication Medications: Active Medications Generic Name Dose Route Start Last Admin Trade Name Freq PRN Reason Stop Dose Admin Albuterol/Ipratropium 3 ml 05/12/19 13:00 05/17/19 12:50 Duoneb NEB Not Given [id number] ANDRÉS Baclofen 10 mg 05/10/19 11:58 05/10/19 13:55 Lioresal PO 10 mg TIDPRN PRN Administration Hiccups Clonidine 0.1 mg 05/17/19 16:00 05/17/19 15:25 Zfhikytc-Hwt-5 Patch TD 0.1 mg Q7DAYS ANDRÉS Administration Fentanyl 25 mcg 05/16/19 09:00 05/16/19 10:42 Duragesic TD 25 mcg Q3D ANDRÉS Administration Heparin Sodium (Porcine) 5,000 units 05/14/19 09:00 05/17/19 08:59 Heparin SC 5,000 units BID ANDRÉS Administration Piperacillin Sod/Tazobactam 100 mls @ 200 mls/hr 05/12/19 09:00 05/17/19 15: 25 Sod 3.375 gm/ Sodium Chloride IVPB 100 mls 0300,0900,1500,2100 ANDRÉS Administration Potassium Phosphate 9 mmol/ 103 mls @ 25.75 mls/hr 05/14/19 09:03 05/14/19 09 :50 Sodium Chloride IVPB 103 mls ASDIR PRN Administration Phosphate 1.0-1.8 Norepinephrine Bitartrate 8 mg 250 mls @ 0 mls/hr 05/14/19 14:03 05/14/19 14: 13 / Dextrose/Water IVPB 250 mls INF PRN Administration TO MAINTAIN MAP > 65 Protocol As Directed Dexmedetomidine HCl 400 mcg/ 100 mls @ 0 mls/hr 05/16/19 11:00 05/17/19 06:06 Sodium Chloride IVPB 100 mls INF PRN Administration .PRN Protocol Titrate Amino Acids/Electrolytes/Dextrose 1,000 mls @ 125 mls/hr 05/17/19 10:30 05/17 11:12 Clinimix E 4.25/5 IV 1,000 mls .Q8H ANDRÉS Administration Dextrose/Sodium Chloride 1,000 mls @ 30 mls/hr 05/17/19 15:07 05/17/19 15:25 D5 1/2 Ns IV Not Given .Q24H [facility] Insulin Human Lispro 0 units 05/10/19 01:59 05/15/19 06:31 Humalog SC 2 unit .MILD SLIDING SCALE PRN Administration Mild Correctional Scale Methylnaltrexone [place] 12 mg 05/15/19 16:00 05/15/19 16:45 Relistor SC 12 mg Q2D@1600 ANDRÉS Administration Ondansetron HCl 4 mg 05/10/19 20:27 05/11/19 23:02 Zofran SLOW IVP 4 mg Q4H PRN Administration Nausea/Vomiting Senna/Docusate Sodium 1 tab 05/15/19 21:00 05/17/19 08:58 Senokot S PO 1 tab BID ANDRÉS Administration - Exam General Appearance: NAD (on Vent) Heart: RRR, no rubs Respiratory: no wheezes, rales, rhonchi Respiratory - other findings: dec AE at bases Gastrointestinal: soft, diminished bowl sounds Extremities: no edema Hosp A/P (1) Sepsis Code(s): A41.9 - SEPSIS, UNSPECIFIED ORGANISM Status: Acute Qualifiers: Severe sepsis acute organ dysfunction type: acute respiratory failure (2) Aspiration pneumonia Code(s): J69.0 - PNEUMONITIS DUE TO INHALATION OF FOOD AND VOMIT Status: Acute (3) Ileus Code(s): K56.7 - ILEUS, UNSPECIFIED Status: Acute (4) Acute hypoxemic respiratory failure Code(s): J96.01 - ACUTE RESPIRATORY FAILURE WITH HYPOXIA Status: Acute (5) Lactic acidosis Code(s): E87.2 - ACIDOSIS Status: Acute (6) Tachyarrhythmia Code(s): R00.0 - TACHYCARDIA, UNSPECIFIED Status: Acute (7) Type 2 myocardial infarction Code(s): I21.A1 - MYOCARDIAL INFARCTION TYPE 2 Status: Acute (8) N&V (nausea and vomiting) Code(s): R11.2 - NAUSEA WITH VOMITING, UNSPECIFIED Status: Acute Qualifiers: Vomiting Intractability: intractable (9) Moderate protein-calorie malnutrition Code(s): E44.0 - MODERATE PROTEIN-CALORIE MALNUTRITION Status: Acute (10) H/O malignant neoplasm of stomach Code(s): Z85.028 - PERSONAL HISTORY OF OTHER MALIGNANT NEOPLASM OF STOMACH Status: Chronic (11) Hyponatremia Code(s): E87.1 - HYPO-OSMOLALITY AND HYPONATREMIA Status: Acute (12) DM2 (diabetes mellitus, type 2) Status: Chronic Qualifiers: Chronic kidney disease stage: stage 2 (mild) (13) HTN (hypertension) Code(s): I10 - ESSENTIAL (PRIMARY) HYPERTENSION Status: Chronic (14) Hypokalemia Code(s): E87.6 - HYPOKALEMIA Status: Acute (15) Intractable pain Code(s): R52 - PAIN, UNSPECIFIED Status: Acute (16) Hypophosphatemia Code(s): E83.39 - OTHER DISORDERS OF PHOSPHORUS METABOLISM Status: Acute - Plan DVT proph w/lovenox, DVT proph w/SCDs Cont Vent support Cont IV Zosyn for Aspiration On PPN Cont OG tube suction Critical care/GI/Oncology following AM labs
[2019-05-17] MEDS: Methylnaltrexone 12 MG/0.6 ML VIAL SC SCH (16:24)
--- NOTE | 2019-05-17 18:35 | PRG ---
DATE OF SERVICE: 05/17/2019 REASON FOR CONSULTATION: Gastric adenocarcinoma, ileus. SUBJECTIVE: The patient was extubated earlier today and has been doing well while off mechanical ventilation. The OG tube was removed at that time, and for a few hours, the patient did well, but did experience increased nausea and vomiting. Replacement of an NG tube was then performed with approximately 300 to 400 mL of bilious fluid out. Over the last 24 to 48 hours, he had been having decreased amounts of OG tube aspirate, but it still appears that he does have an element of ileus in place. He is starting to pass gas at this point, but has not had a bowel movement over the last 48 to 72 hours (at least). He will be given his second dose of methylnaltrexone today and he could be potentially transferred to naloxeg tolerating oral intake. Otherwise, the patient is doing well. Currently, he denies any nausea, vomiting, fevers, chills or abdominal pain. OBJECTIVE: VITAL SIGNS: Temperature 98.7, pulse 129, blood pressure 112/83, respiratory rate 39, and saturating 96% on room air. GENERAL: The patient was sitting at bedside, in no acute distress. Alert and oriented x3. Responses were short, but coherent. CARDIOVASCULAR: Tachycardic rate, but regular rhythm. RESPIRATORY: Coarse breath sounds heard in all lung prabhakar. ABDOMEN: Hypoactive bowel sounds. Soft. Mild abdominal distention. No tenderness to palpation in all abdominal quadrants. EXTREMITIES: No cyanosis, clubbing or edema. LABORATORY DATA: CBC with a white blood cell count of 8.2, hemoglobin 12.7, hematocrit 37.4, and platelets 197. Chemistry with a sodium of 136, potassium 3.5, chloride 108, CO2 of 23, BUN 11, creatinine 0.71, and glucose 184. AST 25, ALT 19, alkaline phosphatase 72, and total bilirubin 2.0. IMAGING DATA: No current GI imaging is available for review. ASSESSMENT AND PLAN: The patient is a 64-year-old male with past medical history of diabetes, hypertension, opiate-induced constipation, and stage IV gastric adenocarcinoma with peritoneal carcinomatosis, presenting with small bowel ileus, ascites, and aspiration pneumonia along with his metastatic disease. Ileus: The patient initially presented with a clinical picture consistent with small bowel/colonic ileus with increasing amounts of fluid obtained on orogastric tube to suction. However, with the administration of methylnaltrexone in an attempt to reverse the opiate effects on the gut, he has had a significant decrease in his OG tube output with approximately 710 mL yesterday. He was extubated earlier today with the plans to replace the NG tube only if he was exhibiting increased nausea and vomiting, which the patient did, and upon replacing the NG tube, did have approximately 300 to 400 mL of bilious fluid out. At this point, continuation of the NG tube is recommended until we have further evidence that the patient's ileus is resolving including bowel movements and further decreased output from the suction itself. Recommendations: 1. Would attempt to minimize any unneeded narcotic medications or medications that might impair gastrointestinal motility. 2. Continue methylnaltrexone for opiate reversal on the gut. 3. Would continue NG tube at low intermittent wall suction. We will continue to monitor the patient daily for decreasing output and/or bowel movements, and if both are occurring, we will consider removal at that time. Ascites: The patient also presented with increased abdominal distention and significant amount of abdominal fluid consistent with ascites. He underwent paracentesis on May 14, 2019, with fluid analysis showing knowing evidence of SBP and cytology is still pending at this time. Recommendations: 1. Would follow up on the cytology for the presence of malignant cells. 2. Consider paracentesis as needed for abdominal comfort. We will continue to follow. Please call with any questions. Job ID: [id number]
[2019-05-17] MEDS: Metoprolol Tartrate 25 MG TAB PO SCH (20:42)
[2019-05-17] MEDS: HumaLOG 300 UNITS/3 ML VIAL SC PRN (22:23)
[2019-05-18 05:30] LABS: Band 1 % (5-11); Hemoglobin 11.7 g/dL (14.0-18.0); Hypochromia SLIGHT = 6-15 cells (100X) (0-5/hpf); Lymphocytes 8 % (21-51); MDiff Complete? YES; Mean Corpuscular HGB CONC 34.8 g/dL (32.0-36.0); Mean Corpuscular Hemoglobin 30.3 pg (27.0-31.0); Mean Corpuscular Volume 87.3 fL (78.0-98.0); Mean Platelet Volume 7.5 fL (7.4-10.4); Monocytes 1 % (0-10); Neutrophil 90 % (42-75); Platelet Count 169 thou/uL (130-400); Platelet Morphology Comment Appears Adequate; RBC Distribution Width 12.1 % (11.5-14.5); Red Blood Cell (RBC) Count 3.87 mill/uL (4.70-6.10); White Blood Cell (WBC) Count 7.5 thou/uL (4.8-10.8)
[2019-05-18 05:40] LABS: Phosphorus 2.5 mg/dL (2.3-4.7)
[2019-05-18 05:41] LABS: ALT (SGPT) 29 U/L (8-55); AST (SGOT) 27 U/L (5-34); Alkaline Phosphatase 65 U/L (40-150); Anion Gap 9 mmol/L (10-20); BUN (Urea Nitrogen) 20 mg/dL (8.4-25.7); Bilirubin, Total 1.5 mg/dL (0.2-1.2); Calc. Creatinine Clearance 137 mL/min (70-130); Calcium 8.1 mg/dL (7.8-10.44); Carbon Dioxide 22 mmol/L (23-31); Chloride 108 mmol/L (98-107); Estimated GFR-MDRD Greater than 90; Glucose 243 mg/dL (80-115); Potassium 3.8 mmol/L (3.5-5.1); Sodium 135 mmol/L (136-145)
[2019-05-18] MEDS: HumaLOG 300 UNITS/3 ML VIAL SC PRN ×2 (06:37→21:39)
[2019-05-18] MEDS: D5W-AA 4.25% with LYTES 1,000 ML IV SCH ×2 (07:03→10:26)
[2019-05-18] MEDS: Piperacillin/Tazobactam 3.375 GM in Sodium Chloride 0.9% 100 ML IVPB SCH ×4 (07:03→20:14)
--- NOTE | 2019-05-18 07:40 | RAD ---
CHEST 1 VIEW: INDICATION: Intubation. COMPARISON: Prior exam dated 05/17/2019. FINDINGS: Right chest wall port is stable. The patient has been extubated. Gastric catheter remains projectin g in the region of the fundus. There is improvement in the central edema pattern. Cardiomegaly, pul monary vascular congestion, and perihilar opacities remain, however. Small bilateral pleural effusio ns are similar appearing. No pneumothorax is evident. IMPRESSION: 1. Interval extubation. 2. Improving central edema pattern. POS: BH
--- NOTE | 2019-05-18 07:58 | PDOC.MOPN ---
Interval History: extubated, has NGT in with difficult secretions but he is managing them and using suction himself. he denies pain or SOB currently. feeling better overall - Vital Signs Vital Signs: Vital Signs (12 hours) Temp Pulse Resp Pulse Ox 05/18/19 07:00 98.1 F 05/18/19 04:00 98.6 F 05/18/19 00:10 95 21 H 96 05/18/19 00:00 98.4 F 05/17/19 20:35 98 05/17/19 20:00 98.6 F Weight Admit Weight 201 lb 11.2 oz Weight 199 lb 1.239 oz Most Recent Monitor Data Heart Rate from ECG 104 NIBP 117/81 NIBP BP-Mean 89 Respiration from ECG 34 SpO2 97 - Physical Exam General: Alert, Oriented x3 HEENT: Atraumatic Lungs: Clear to auscultation Cardiovascular: Regular rate Abdomen: Normal bowel sounds, Soft Skin: No rashes Neurological: Normal speech Psych/Mental Status: Mental status NL - Labs Result Diagrams: 05/18/19 05:06 05/18/19 05:06 Lab results: Laboratory Results - last 24 hr 05/18/19 05:06: Phosphorus 2.5 05/18/19 05:06: Sodium 135 L, Potassium 3.8, Chloride 108 H, Carbon Dioxide 22 L , Anion Gap 9 L, BUN 20, Creatinine 0.68 L, Estimated GFR (MDRD) Greater than 90, Glucose 243 H, Calcium 8.1, Total Bilirubin 1.5 H, AST 27, ALT 29, Alkaline Phosphatase 65, Serum Total Protein 5.0 L, Albumin 3.0 L, Globulin 2.0 L, Albumin/Globulin Ratio 1.5 05/18/19 05:06: WBC 7.5, RBC 3.87 L, Hgb 11.7 L, Hct 33.8 L, MCV 87.3, MCH 30.3 , MCHC 34.8, RDW 12.1, Plt Count 169, MPV 7.5, Neutrophils % (Manual) 90 H, Band Neuts % (Manual) 1 L, Lymphocytes % (Manual) 8 L, Monocytes % (Manual) 1, Hypochromia SLIGHT = 6-15 cells, Plt Morphology Comment Appears Adequate 05/17/19 16:13: POC Glucose 222 H 05/17/19 10:21: POC Glucose 165 H A/P - Problem (1) Aspiration into airway Current Visit: Yes Code(s): T17.908A - UNSP FB IN RESP TRACT, PART UNSP CAUSING OTH INJURY, INIT Status: Acute (2) Acute hypoxemic respiratory failure Current Visit: Yes Code(s): J96.01 - ACUTE RESPIRATORY FAILURE WITH HYPOXIA Status: Acute (3) N&V (nausea and vomiting) Current Visit: Yes Code(s): R11.2 - NAUSEA WITH VOMITING, UNSPECIFIED Status : Acute Qualifiers: Vomiting Intractability: intractable (4) H/O malignant neoplasm of stomach Current Visit: Yes Code(s): Z85.028 - PERSONAL HISTORY OF OTHER MALIGNANT NEOPLASM OF STOMACH Status: Chronic - Plan Plan: 1. cont suction, NGT clamped 2. transfer to floor 3. cont PPN for now 4. PT/OT 5. we discussed his code status, he "never wants a tube in his throat again." I told him to discuss this with his family as well
[2019-05-18] MEDS: Senokot S 8.6-50 MG TAB PO SCH ×2 (08:31→20:14)
[2019-05-18] MEDS: Aspirin 81 mg Enteric Coated Tablet PO SCH (08:31)
[2019-05-18] MEDS: Metoprolol Tartrate 25 MG TAB PO SCH ×2 (08:31→20:14)
[2019-05-18] MEDS: Heparin 5,000 UNITS/ML VIAL SC SCH ×2 (08:35→20:14)
--- NOTE | 2019-05-18 09:21 | PRG ---
DATE OF SERVICE: 05/18/2019 SUBJECTIVE: Campos Ernandez extubated yesterday. X-ray still shows bilateral haziness. OBJECTIVE: VITAL SIGNS: Pulse 110, blood pressure 110/82, saturations are 96% on room air, and respirations 31. His I's and O's have been 3729 in and 880 out. CHEST: Decreased breath sounds. Bilateral rhonchi. CARDIAC: Normal S1 and S2. No gallops. ABDOMEN: No masses. LABORATORY DATA: Lytes are normal. Bilirubin is 1.5, albumin is low 3. IMPRESSION: 1. Gastric cancer. 2. Respiratory failure. 3. Aspiration pneumonia. 4. Severe deconditioning. PLAN: He is started on peripheral nutrition. TPN. Continue PT, supportive care. Eventually can be probably transferred out of the ICU. We will follow. Job ID: [id number]
[2019-05-18] MEDS ORDERED: Piperacillin/Tazobactam 3.375 GM VIAL ONE (14:52)
[2019-05-18] MEDS ORDERED: Sodium Acetate 2 mEq/ml 20 MEQ, Sodium Chloride 15 MEQ, Potassium ACETATE 10 MEQ, Potas... IV SCH (17:15)
--- NOTE | 2019-05-18 18:24 | PRG ---
DATE OF SERVICE: 05/18/2019 SUBJECTIVE: Mr. Ernandez had continued improvement over the weekend, was able to be extubated yesterday. Evidently, orogastric tube was removed, but the patient was not really able to tolerate liquids yet, so nasogastric tube was replaced. He has had significant decline in NG output today. He had a couple of bowel movements. His abdomen is not as distended. He says he is not having any nausea or abdominal pain at present. OBJECTIVE: VITAL SIGNS: Blood pressure 114/76, pulse 97, temperature 98.2, and 100% oxygen saturation on room air. GENERAL: No acute distress. HEART: Regular rate and rhythm. LUNGS: Bibasilar crackles. No wheezing. No respiratory distress. ABDOMEN: Mild distention. Bowel sounds are hypoactive, but present. Soft and nontender to palpation throughout. EXTREMITIES: No peripheral edema. LABORATORY STUDIES: WBC down to 7.5, hemoglobin 11.7, and platelets 169. Sodium 135, potassium 3.8, BUN 20, creatinine 0.68, and glucose 208. Phosphorus 2.5. Total bilirubin 1.5, alkaline phosphatase 65, AST 27, and ALT 29. ASSESSMENT AND PLAN: 1. Ileus. This is likely multifactorial secondary to his metastatic gastric adenocarcinoma and narcotic administration. Clinically, this appears to be resolving. He is now having some bowel movements, less nauseated. Nasogastric output has dropped dramatically over the past day. He has received a couple of doses of methylnaltrexone. At this time, we will try to clamp the NG tube and cautiously give him clear liquids. I advised him to let us know if he starts to feel significant nausea with this, hopefully we will be able to advance his diet to meet nutritional needs over the next few days. We would continue the methylnaltrexone for now, switch to oral naloxegol once he is reliably tolerating oral p.o. intake. 2. Gastric adenocarcinoma, advanced, with peritoneal carcinomatosis. The patient is being followed by Dr. Whelan. Job ID: [id number]
[2019-05-18] MEDS: [UNRECOGNIZED DRUG - OTHER] IV SCH (20:14)
[2019-05-18] MEDS: SODIUM ACETATE IV SCH (20:14)
[2019-05-18] MEDS: POTASSIUM CHLORIDE IV SCH (20:14)
[2019-05-18] MEDS ORDERED: Melatonin 3 MG TAB PO SCH (21:15)
[2019-05-18] MEDS: Ondansetron PF 4 MG/2 ML Vial SLOW IVP PRN (22:05)
--- NOTE | 2019-05-18 23:22 | PDOC.HOSPP ---
- Subjective Encounter Date: 05/18/19 Encounter Time: 06:15 Subjective: Patient seen and examined for Aspiration/Ileus. Pain controlled. No new complaints. No overnight events - Objective Vital Signs & Weight: Vital Signs (12 hours) Temp Pulse Resp Pulse Ox 05/18/19 23:00 98.4 F 05/18/19 19:23 97 05/18/19 19:00 97.7 F 05/18/19 18:41 94 24 H 98 05/18/19 15:00 98.2 F 05/18/19 13:45 96 28 H 99 05/18/19 12:00 98.3 F Weight Admit Weight 201 lb 11.2 oz Weight 199 lb 1.239 oz Most Recent Monitor Data Heart Rate from ECG 100 NIBP 106/67 NIBP BP-Mean 72 Respiration from ECG 27 SpO2 98 I&O: 05/17/19 05/18/19 05/19/19 06:59 06:59 06:59 Intake Total 2814.4 3729 2233 Output Total 0968 439 4362 Balance 1344.4 2849 948 Result Diagrams: 05/18/19 05:06 05/18/19 05:06 Additional Labs: Accuchecks 05/18/19 05/18/19 05/18/19 21:39 16:22 11:08 POC Glucose 187 H 208 H 224 H EKG Reviewed by me: Yes (Tele SR) Hospitalist ROS - Review of Systems Respiratory: denies: cough, dry, shortness of breath, hemoptysis, SOB with excertion, pleuritic pain, sputum, wheezing, other Cardiovascular: denies: chest pain, palpitations, orthopnea, paroxysmal noc. dyspnea, edema, light headedness, other - Medication Medications: Active Medications Generic Name Dose Route Start Last Admin Trade Name Freq PRN Reason Stop Dose Admin Albuterol/Ipratropium 3 ml 05/12/19 13:00 05/18/19 18:41 Duoneb NEB 3 ml [id number] ANDRÉS Administration Aspirin 81 mg 05/18/19 09:00 05/18/19 08:31 Ecotrin PO 81 mg DAILY ANDRÉS Administration Baclofen 10 mg 05/10/19 11:58 05/10/19 13:55 Lioresal PO 10 mg TIDPRN PRN Administration Hiccups Clonidine 0.1 mg 05/17/19 16:00 05/17/19 15:25 Dnfcrzfk-Gyh-3 Patch TD 0.1 mg Q7DAYS ANDRÉS Administration Fentanyl 25 mcg 05/16/19 09:00 05/16/19 10:42 Duragesic TD 25 mcg Q3D ANDRÉS Administration Heparin Sodium (Porcine) 5,000 units 05/14/19 09:00 05/18/19 20:14 Heparin SC 5,000 units BID ANDRÉS Administration Piperacillin Sod/Tazobactam 100 mls @ 200 mls/hr 05/12/19 09:00 05/18/19 20: 14 Sod 3.375 gm/ Sodium Chloride IVPB 100 mls 0300,0900,1500,2100 ANDRÉS Administration Potassium Phosphate 9 mmol/ 103 mls @ 25.75 mls/hr 05/14/19 09:03 05/14/19 09 :50 Sodium Chloride IVPB 103 mls ASDIR PRN Administration Phosphate 1.0-1.8 Norepinephrine Bitartrate 8 mg 250 mls @ 0 mls/hr 05/14/19 14:03 05/14/19 14: 13 / Dextrose/Water IVPB 250 mls INF PRN Administration TO MAINTAIN MAP > 65 Protocol As Directed Dexmedetomidine HCl 400 mcg/ 100 mls @ 0 mls/hr 05/16/19 11:00 05/17/19 06:06 Sodium Chloride IVPB 100 mls INF PRN Administration .PRN Protocol Titrate Sodium Acetate 35 meq/ 1,038.5141 mls @ 125 mls/hr 05/18/19 18:00 05/18/19 20 :14 Potassium Chloride 10 meq/ IV 1,038.5141 mls Potassium Phosphate 15 mmol/ .Q8H ANDRÉS Administration Calcium Gluconate 4.5 meq/ Magnesium Sulfate 5 meq/ Dextrose/Water/ Sterile Water/ Amino Acids Insulin Human Lispro 0 units 05/10/19 01:59 05/18/19 21:39 Humalog SC 2 unit .MILD SLIDING SCALE PRN Administration Mild Correctional Scale Methylnaltrexone [place] 12 mg 05/15/19 16:00 05/17/19 16:24 Relistor SC 12 mg Q2D@1600 ANDRÉS Administration Metoprolol Tartrate 12.5 mg 05/17/19 21:00 05/18/19 20:14 Lopressor PO 12.5 mg BID ANDRÉS Administration Ondansetron HCl 4 mg 05/10/19 20:27 05/18/19 22:05 Zofran SLOW IVP 4 mg Q4H PRN Administration Nausea/Vomiting Pantoprazole Sodium 40 mg 05/18/19 09:00 05/18/19 08:31 Protonix PO 40 mg DAILY ANDRÉS Administration Senna/Docusate Sodium 1 tab 05/15/19 21:00 05/18/19 20:14 Senokot S PO 1 tab BID ANDRÉS Administration - Exam General Appearance: NAD (NG tube +) Heart: RRR, no rubs Respiratory: CTAB, no wheezes, no ronchi Gastrointestinal: soft, non-tender, normal bowel sounds Extremities: no edema Hosp A/P (1) Sepsis Code(s): A41.9 - SEPSIS, UNSPECIFIED ORGANISM Status: Acute Qualifiers: Severe sepsis acute organ dysfunction type: acute respiratory failure (2) Aspiration pneumonia Code(s): J69.0 - PNEUMONITIS DUE TO INHALATION OF FOOD AND VOMIT Status: Acute (3) Ileus Code(s): K56.7 - ILEUS, UNSPECIFIED Status: Acute (4) Acute hypoxemic respiratory failure Code(s): J96.01 - ACUTE RESPIRATORY FAILURE WITH HYPOXIA Status: Acute (5) Lactic acidosis Code(s): E87.2 - ACIDOSIS Status: Acute (6) Tachyarrhythmia Code(s): R00.0 - TACHYCARDIA, UNSPECIFIED Status: Acute (7) Type 2 myocardial infarction Code(s): I21.A1 - MYOCARDIAL INFARCTION TYPE 2 Status: Acute (8) N&V (nausea and vomiting) Code(s): R11.2 - NAUSEA WITH VOMITING, UNSPECIFIED Status: Acute Qualifiers: Vomiting Intractability: intractable (9) Moderate protein-calorie malnutrition Code(s): E44.0 - MODERATE PROTEIN-CALORIE MALNUTRITION Status: Acute (10) H/O malignant neoplasm of stomach Code(s): Z85.028 - PERSONAL HISTORY OF OTHER MALIGNANT NEOPLASM OF STOMACH Status: Chronic (11) Hyponatremia Code(s): E87.1 - HYPO-OSMOLALITY AND HYPONATREMIA Status: Acute (12) DM2 (diabetes mellitus, type 2) Status: Chronic Qualifiers: Chronic kidney disease stage: stage 2 (mild) (13) HTN (hypertension) Code(s): I10 - ESSENTIAL (PRIMARY) HYPERTENSION Status: Chronic (14) Hypokalemia Code(s): E87.6 - HYPOKALEMIA Status: Acute (15) Intractable pain Code(s): R52 - PAIN, UNSPECIFIED Status: Acute (16) Hypophosphatemia Code(s): E83.39 - OTHER DISORDERS OF PHOSPHORUS METABOLISM Status: Acute - Plan PT/OT, out of bed/ambulate, DVT proph w/heparin, DVT proph w/SCDs Cont NG tube suction Cont IV Zosyn for Aspiration Cont PPN Transfer to medical if ok with Critical care AM labs
[2019-05-19] MEDS ORDERED: Lorazepam 2 MG/ML VIAL SLOW IVP SCH ×2 (01:15→22:00)
[2019-05-19] MEDS: Piperacillin/Tazobactam 3.375 GM in Sodium Chloride 0.9% 100 ML IVPB SCH ×4 (02:29→20:17)
[2019-05-19] MEDS: [UNRECOGNIZED DRUG - OTHER] IV SCH ×2 (03:44→12:51)
[2019-05-19] MEDS: SODIUM ACETATE IV SCH ×2 (03:44→12:51)
[2019-05-19] MEDS: POTASSIUM CHLORIDE IV SCH ×2 (03:44→12:51)
[2019-05-19 03:50] LABS: Band 17 % (5-11); Hemoglobin 11.2 g/dL (14.0-18.0); Lymphocytes 11 % (21-51); MDiff Complete? YES; Mean Corpuscular HGB CONC 33.7 g/dL (32.0-36.0); Mean Corpuscular Hemoglobin 29.6 pg (27.0-31.0); Mean Corpuscular Volume 87.7 fL (78.0-98.0); Mean Platelet Volume 7.5 fL (7.4-10.4); Monocytes 2 % (0-10); Neutrophil 70 % (42-75); Platelet Count 177 thou/uL (130-400); Platelet Morphology Comment Appears Adequate; RBC Distribution Width 12.3 % (11.5-14.5); White Blood Cell (WBC) Count 8.9 thou/uL (4.8-10.8)
[2019-05-19 03:54] LABS: Phosphorus 2.7 mg/dL (2.3-4.7)
[2019-05-19 03:58] LABS: ALT (SGPT) 32 U/L (8-55); AST (SGOT) 28 U/L (5-34); Albumin 2.9 g/dL (3.4-4.8); Alkaline Phosphatase 73 U/L (40-150); Anion Gap 11 mmol/L (10-20); BUN (Urea Nitrogen) 23 mg/dL (8.4-25.7); Bilirubin, Total 1.2 mg/dL (0.2-1.2); Calc. Creatinine Clearance 144 mL/min (70-130); Calcium 8.2 mg/dL (7.8-10.44); Carbon Dioxide 23 mmol/L (23-31); Chloride 106 mmol/L (98-107); Estimated GFR-MDRD Greater than 90; Globulin 2.1 g/dL (2.4-3.5); Glucose 213 mg/dL (80-115); Potassium 4.2 mmol/L (3.5-5.1); Sodium 136 mmol/L (136-145)
[2019-05-19] MEDS: HumaLOG 300 UNITS/3 ML VIAL SC PRN ×3 (04:10→16:47)
--- NOTE | 2019-05-19 08:56 | RAD ---
CHEST ONE VIEW: HISTORY: Respiratory insufficiency. COMPARISON: None. FINDINGS: NG tube and right central line in place. Bilateral prominent alveolar and interstitial opacities and bilateral pleural effusions. IMPRESSION: 1. Overall stable chest. 2. Extensive bilateral mostly alveolar opacity changes and pleural effusions. Continue short term followup. POS: OFF
[2019-05-19] MEDS: Heparin 5,000 UNITS/ML VIAL SC SCH ×2 (09:18→20:16)
[2019-05-19] MEDS: Aspirin 81 mg Enteric Coated Tablet PO SCH ×2 (09:21→17:56)
[2019-05-19] MEDS: Metoprolol Tartrate 25 MG TAB PO SCH ×3 (09:21→20:11)
[2019-05-19] MEDS: Senokot S 8.6-50 MG TAB PO SCH ×3 (09:22→20:12)
--- NOTE | 2019-05-19 10:13 | PRG ---
DATE OF SERVICE: 05/19/2019 1SUBJECTIVE: Campos Ernandez is a 64-year-old gentleman, is confused this morning. He pulled out his midline. X-ray shows bilateral pleural effusions. He is tachypneic and tachycardic. OBJECTIVE: VITAL SIGNS: His heart rate is 100, respiratory rate 32, and blood pressure 108/69. CHEST: Decreased breath sounds bilaterally. CARDIAC: Sinus tach. ABDOMEN: Distended. LABORATORY DATA: Lytes are normal. His bilirubin was 1.2. White count 8000. ASSESSMENT AND PLAN: Abdominal carcinomatosis, gastric cancer, ascites, bilateral pleural effusions, encephalopathy, and ileus. From the Pulmonary standpoint, I feel at this stage, he needs supportive care. I am concerned about transferring to the oncology floor since his condition is relatively unstable. He is going to need ongoing nutritional support, PT. Major disposition as per Oncology. One-half hour of critical time. Job ID: [id number]
[2019-05-19] MEDS: Acetaminophen 650 MG in Premix Bag 1 BAG IVPB PRN ×2 (12:51→17:57)
--- NOTE | 2019-05-19 12:51 | PQF ---
DATE: 05-19-19 ATTN: DR. MARGARITO MORA Please exercise your independent, professional judgment in responding to the clarification form. Clinical indicators are provided on the bottom of this form for your review Please check appropriate box(s): [ x] Encephalopathy: Type: [ x ] Acute [ ] Subacute [ ] Chronic Etiology: [ x ] Metabolic [ ] Toxic [ ] Hypoxic [ ] Septic [ ] Other (please specify) [ ] Transient Alteration of Awareness [ ] Other diagnosis [ ] Unable to determine In addition, please specify: Present on Admission (POA): [ x ] Yes [ ] No [ ] Unable to determine For continuity of documentation, please document condition throughout progress notes and discharge summary. Thank You. CLINICAL INDICATORS - SIGNS / SYMPTOMS / LABS CONSULT DR. HAAGN 05-19-19: CONFUSED THIS MORNING. HE PULLED OUT HIS MIDLINE. ENCEPHALOPATHY PN DR. SILVA 05-17-19: SEPSIS/ RESPIRATORY FAILURE/ ON MECH VENT, ASPIRATION PNEUMONIA, RISK FACTORS: PN DR. SILVA 05-17-19: SEPSIS/ RESPIRATORY FAILURE/ ON MECH VENT, ASPIRATION PNEUMONIA, TREATMENTS: ER NOTES 05-10-19: IVF NS MAR 05-12-19: ZOSYN IV (This form is maintained as a part of the permanent medical record) 2014 [employer] All Rights Reserved JONH [email or web address] Office: [phone] IVIS
--- NOTE | 2019-05-19 14:21 | PDOC.HOSPP ---
- Subjective Encounter Date: 05/19/19 Encounter Time: 12:40 Subjective: awake, not oriented, follows some stimuli but mostly none daughter at bedside - Objective Vital Signs & Weight: Vital Signs (12 hours) Temp Pulse Ox 05/19/19 12:00 98.4 F 05/19/19 08:00 99 05/19/19 07:00 98.2 F 05/19/19 03:00 98.4 F Weight Admit Weight 201 lb 11.2 oz Weight 204 lb 5.896 oz Most Recent Monitor Data Heart Rate from ECG 113 NIBP 125/82 NIBP BP-Mean 105 Respiration from ECG 29 SpO2 100 I&O: 05/18/19 05/19/19 05/20/19 06:59 06:59 06:59 Intake Total 3729 3523 40 Output Total 880 1775 405 Balance 2848 8961 -143 Result Diagrams: 05/19/19 03:10 05/19/19 03:10 Additional Labs: Accuchecks 05/19/19 05/18/19 05/18/19 10:02 21:39 16:22 POC Glucose 170 H 187 H 208 H Hospitalist ROS - Medication Medications: Active Medications Generic Name Dose Route Start Last Admin Trade Name Freq PRN Reason Stop Dose Admin Albuterol/Ipratropium 3 ml 05/12/19 13:00 05/19/19 08:20 Duoneb NEB Not Given [id number] ANDRÉS Aspirin 81 mg 05/18/19 09:00 05/19/19 09:21 Ecotrin PO 81 mg DAILY ANDRÉS Administration Baclofen 10 mg 05/10/19 11:58 05/10/19 13:55 Lioresal PO 10 mg TIDPRN PRN Administration Hiccups Clonidine 0.1 mg 05/17/19 16:00 05/17/19 15:25 Xnwvdopq-Rfi-4 Patch TD 0.1 mg Q7DAYS ANDRÉS Administration Heparin Sodium (Porcine) 5,000 units 05/14/19 09:00 05/19/19 09:18 Heparin SC 5,000 units BID ANDRÉS Administration Piperacillin Sod/Tazobactam 100 mls @ 200 mls/hr 05/12/19 09:00 05/19/19 09: 20 Sod 3.375 gm/ Sodium Chloride IVPB 100 mls 0300,0900,1500,2100 ANDRÉS Administration Potassium Phosphate 9 mmol/ 103 mls @ 25.75 mls/hr 05/14/19 09:03 05/14/19 09 :50 Sodium Chloride IVPB 103 mls ASDIR PRN Administration Phosphate 1.0-1.8 Norepinephrine Bitartrate 8 mg 250 mls @ 0 mls/hr 05/14/19 14:03 05/14/19 14: 13 / Dextrose/Water IVPB 250 mls INF PRN Administration TO MAINTAIN MAP > 65 Protocol As Directed Sodium Acetate 35 meq/ 1,038.5141 mls @ 125 mls/hr 05/18/19 18:00 05/19/19 12 :51 Potassium Chloride 10 meq/ IV 1,038.5141 mls Potassium Phosphate 15 mmol/ .Q8H ANDRÉS Administration Calcium Gluconate 4.5 meq/ Magnesium Sulfate 5 meq/ Dextrose/Water/ Sterile Water/ Amino Acids Acetaminophen 650 mg/ Device 65 mls @ 400 mls/hr 05/19/19 11:35 05/19/19 12: 51 IVPB 05/20/19 11:36 65 mls Q6H PRN Administration Fever > 101 Insulin Human Lispro 0 units 05/10/19 01:59 05/19/19 10:37 Humalog SC 2 unit .MILD SLIDING SCALE PRN Administration Mild Correctional Scale Methylnaltrexone [place] 12 mg 05/15/19 16:00 05/17/19 16:24 Relistor SC 12 mg Q2D@1600 ANDRÉS Administration Metoprolol Tartrate 12.5 mg 05/17/19 21:00 05/19/19 09:21 Lopressor PO 12.5 mg BID ANDRÉS Administration Ondansetron HCl 4 mg 05/10/19 20:27 05/18/19 22:05 Zofran SLOW IVP 4 mg Q4H PRN Administration Nausea/Vomiting Pantoprazole Sodium 40 mg 05/18/19 09:00 05/19/19 09:22 Protonix PO 40 mg DAILY ANDRÉS Administration Senna/Docusate Sodium 1 tab 05/15/19 21:00 05/19/19 09:22 Senokot S PO 1 tab BID ANDRÉS Administration - Exam General Appearance: awake alert, ill appearing Eye: PERRL, anicteric sclera ENT: no oropharyngeal lesions, dry oral mucosa Neck: supple, no JVD Heart: RRR, no murmur Respiratory: no wheezes, no rales, rhonchi Gastrointestinal: soft, normal bowel sounds, distended Extremities: no cyanosis, 1+ LE edema Neurological: cranial nerve grossly intact, no focal deficits Hosp A/P (1) Acute respiratory failure with hypoxia and hypercapnia Code(s): J96.01 - ACUTE RESPIRATORY FAILURE WITH HYPOXIA; J96.02 - ACUTE RESPIRATORY FAILURE WITH HYPERCAPNIA Status: Resolved (2) Acute metabolic encephalopathy Code(s): G93.41 - METABOLIC ENCEPHALOPATHY Status: Acute (3) FTT (failure to thrive) in adult Status: Chronic (4) Aspiration pneumonia Code(s): J69.0 - PNEUMONITIS DUE TO INHALATION OF FOOD AND VOMIT Status: Acute Qualifiers: Aspiration pneumonia type: due to regurgitated food Laterality: bilateral (5) Moderate protein-calorie malnutrition Code(s): E44.0 - MODERATE PROTEIN-CALORIE MALNUTRITION Status: Acute (6) Sepsis Code(s): A41.9 - SEPSIS, UNSPECIFIED ORGANISM Status: Resolved Qualifiers: Sepsis acute organ dysfunction status: with acute organ dysfunction Severe sepsis acute organ dysfunction type: acute respiratory failure Severe sepsis shock status: without septic shock (7) DM2 (diabetes mellitus, type 2) Status: Chronic Qualifiers: Diabetes mellitus halfway insulin use: without manager intermediate use (8) H/O malignant neoplasm of stomach Code(s): Z85.028 - PERSONAL HISTORY OF OTHER MALIGNANT NEOPLASM OF STOMACH Status: Chronic (9) HTN (hypertension) Code(s): I10 - ESSENTIAL (PRIMARY) HYPERTENSION Status: Chronic Qualifiers: Hypertension type: essential hypertension Qualified Code(s): I10 - Essential (primary) hypertension - Plan h/o gastric adenocarcinoma with peritoneal metastasis extubated 05/17/2019 continue asp, lopressor, clonidine tts, fentanyl 25mcg tts, zosyn hemostable prognosis guarded PT/OT, speech therapy consultations, december adv diet if cleared by speech echo showed ef of 65% with moderate rv size
--- NOTE | 2019-05-19 14:40 | PDOC.MOPN ---
Interval History: Patient disoriented today but does follow commands. O2 off, breathing good - Vital Signs Vital Signs: Vital Signs (12 hours) Temp Pulse Ox 05/19/19 12:00 98.4 F 05/19/19 08:00 99 05/19/19 07:00 98.2 F 05/19/19 03:00 98.4 F Weight Admit Weight 201 lb 11.2 oz Weight 204 lb 5.896 oz Most Recent Monitor Data Heart Rate from ECG 113 NIBP 125/82 NIBP BP-Mean 105 Respiration from ECG 29 SpO2 100 - Physical Exam General: Alert, No acute distress HEENT: Atraumatic, PERRLA, EOMI, Mucous membr. moist/pink Lungs: Other Cardiovascular: Regular rate Abdomen: Soft, No tenderness Extremities: No clubbing, No cyanosis, No edema, Normal pulses, No tenderness/ swelling Skin: No rashes, No breakdown, No significant lesion Neurological: Normal tone Psych/Mental Status: Other (confused) - Labs Result Diagrams: 05/19/19 03:10 05/19/19 03:10 Lab results: Laboratory Results - last 24 hr 05/19/19 10:02: POC Glucose 170 H 05/19/19 03:10: Phosphorus 2.7 05/19/19 03:10: Sodium 136, Potassium 4.2, Chloride 106, Carbon Dioxide 23, Anion Gap 11, BUN 23, Creatinine 0.66 L, Estimated GFR (MDRD) Greater than 90, Glucose 213 H, Calcium 8.2, Total Bilirubin 1.2, AST 28, ALT 32, Alkaline Phosphatase 73, Serum Total Protein 5.0 L, Albumin 2.9 L, Globulin 2.1 L, Albumin/Globulin Ratio 1.4 05/19/19 03:10: WBC 8.9, RBC 3.80 L, Hgb 11.2 L, Hct 33.3 L, MCV 87.7, MCH 29.6 , MCHC 33.7, RDW 12.3, Plt Count 177, MPV 7.5, Neutrophils % (Manual) 70, Band Neuts % (Manual) 17 H, Lymphocytes % (Manual) 11 L, Monocytes % (Manual) 2, Plt Morphology Comment Appears Adequate 05/18/19 21:39: POC Glucose 187 H 05/18/19 16:22: POC Glucose 208 H Status: lab reviewed by me A/P - Problem (1) Acute hypoxemic respiratory failure Current Visit: Yes Code(s): J96.01 - ACUTE RESPIRATORY FAILURE WITH HYPOXIA Status: Acute (2) H/O malignant neoplasm of stomach Current Visit: Yes Code(s): Z85.028 - PERSONAL HISTORY OF OTHER MALIGNANT NEOPLASM OF STOMACH Status: Chronic - Plan Plan: NGT out, no nausea/vomiting. BM yesterday More confused today, poss from fentanyl patch, removed continue PPN supportive care
[2019-05-19] MEDS ORDERED: POTASSIUM PHOSPHATE IV SCH (16:00)
[2019-05-19] MEDS ORDERED: SODIUM CHLORIDE IV SCH (16:00)
[2019-05-19] MEDS ORDERED: POTASSIUM CHLORIDE IV SCH (16:00)
[2019-05-19] MEDS ORDERED: [UNRECOGNIZED DRUG - OTHER] IV SCH (16:00)
--- NOTE | 2019-05-19 17:46 | PRG ---
DATE OF SERVICE: 05/19/2019 SUBJECTIVE: Mr. Ernandez has been having delirium starting last night, continuing through the day. He is not really having any meaningful communication though he is awake and alert. Speech Therapy saw him earlier today and determined he has moderate cognitive-linguistics deficits, unable to trigger a swallow at this time. They are going to continue to follow. He endorses a bit of generalized abdominal discomfort, but no nausea. He has not had any vomiting. He removed his nasogastric tube overnight. He had a bowel movements earlier today. He was put back on PPN. OBJECTIVE: VITAL SIGNS: Blood pressure 125/82, temperature 98.4, pulse 115, oxygen saturation is 92% on room air. GENERAL: No acute distress. Nasogastric tube is out. HEART: Regular. Borderline tachycardia. LUNGS: Clear to auscultation bilaterally. ABDOMEN: Mild distention. Bowel sounds are present though hypoactive. Soft, nontender to palpation. EXTREMITIES: No peripheral edema. LABORATORY STUDIES: WBC 8.9, hemoglobin 11.2, platelets 177. Sodium 136, potassium 4.2, BUN 23, creatinine 0.66. LFTs all remain normal. Glucose 168. ASSESSMENT AND PLAN: 1. Ileus, improved. The patient has continued to have some stool output and has had no further vomiting today after removal of nasogastric tube. If the patient is going to continue to need opioid pain medications, I would advise just continuing on Relistor. This is currently ordered at 12 mg subcu every 2 days. If you were able to resume oral intake, I could switch to 150 mg p.o. daily. 2. Oropharyngeal dysphagia. The patient did not do well with speech therapist evaluation today. He really did not even initiate the swallow. This could just be secondary to his delirium, which hopefully will improve. Speech Therapy will continue to follow. Note that the patient is not a candidate for PEG tube placement due to his metastatic gastric adenocarcinoma with peritoneal carcinomatosis. I think it is unlikely that the patient is going to be able to meet his nutritional needs orally, and he is probably going to have to continue on parenteral nutrition. 3. Gastric adenocarcinoma with peritoneal carcinomatosis. Oncology continues to follow. Overall prognosis remains poor. Please call anytime with questions or concerns. Job ID: [id number]
[2019-05-19] MEDS: Methylnaltrexone 12 MG/0.6 ML VIAL SC SCH (18:51)
[2019-05-20] MEDS: Piperacillin/Tazobactam 3.375 GM in Sodium Chloride 0.9% 100 ML IVPB SCH ×4 (03:36→21:22)
[2019-05-20] MEDS: Ondansetron PF 4 MG/2 ML Vial SLOW IVP PRN (03:37)
[2019-05-20 05:32] LABS: Phosphorus 2.7 mg/dL (2.3-4.7)
[2019-05-20 05:33] LABS: ALT (SGPT) 49 U/L (8-55); AST (SGOT) 44 U/L (5-34); Albumin 2.9 g/dL (3.4-4.8); Alkaline Phosphatase 102 U/L (40-110); Anion Gap 13 mmol/L (10-20); BUN (Urea Nitrogen) 22 mg/dL (8.4-25.7); Bilirubin, Total 1.4 mg/dL (0.2-1.2); Calc. Creatinine Clearance 152 mL/min (70-130); Calcium 8.5 mg/dL (7.8-10.44); Carbon Dioxide 21 mmol/L (23-31); Chloride 104 mmol/L (98-107); Estimated GFR-MDRD Greater than 90; Globulin 2.3 g/dL (2.4-3.5); Glucose 186 mg/dL (80-115); Potassium 4.1 mmol/L (3.5-5.1); Protein, Total 5.2 g/dL (5.8-8.1); Sodium 134 mmol/L (136-145)
[2019-05-20 06:06] LABS: Band 5 % (5-11); Hemoglobin 11.8 g/dL (14.0-18.0); Hypochromia SLIGHT = 6-15 cells (100X) (0-5/hpf); Lymphocytes 1 % (21-51); MDiff Complete? YES; Mean Corpuscular HGB CONC 34.8 g/dL (32.0-36.0); Mean Corpuscular Hemoglobin 30.3 pg (27.0-31.0); Mean Corpuscular Volume 87.1 fL (78.0-98.0); Mean Platelet Volume 7.3 fL (7.4-10.4); Monocytes 2 % (0-10); Neutrophil 92 % (42-75); Platelet Count 175 thou/uL (130-400); Platelet Morphology Comment Appears Adequate; RBC Distribution Width 12.2 % (11.5-14.5); Red Blood Cell (RBC) Count 3.89 mill/uL (4.70-6.10); White Blood Cell (WBC) Count 8.1 thou/uL (4.8-10.8)
--- NOTE | 2019-05-20 08:01 | PDOC.MOPN ---
Interval History: agitated ytd, pulled out ngt and port IV. last night had vomiting, ngt placed again, now he is not responsive but is awake, just not responding t ocommands, not moving - Vital Signs Vital Signs: Vital Signs (12 hours) Temp Pulse Resp Pulse Ox 05/20/19 06:59 128 H 32 H 100 05/20/19 04:00 98.7 F 05/19/19 23:30 102 H 24 H 98 05/19/19 20:00 98.3 F 96 Weight Admit Weight 201 lb 11.2 oz Weight 203 lb 11.314 oz Most Recent Monitor Data Heart Rate from ECG 129 NIBP 133/95 NIBP BP-Mean 107 Respiration from ECG 33 SpO2 100 - Physical Exam General: No acute distress Lungs: Clear to auscultation Cardiovascular: Regular rate, Other (tachy) Abdomen: Other (more distended) Extremities: No clubbing Skin: No rashes Neurological: Other (not responding to voice, does respond to painful stimuli and tracks my face) - Labs Result Diagrams: 05/20/19 04:50 05/20/19 04:50 Lab results: Laboratory Results - last 24 hr 05/20/19 04:57: POC Glucose 163 H 05/20/19 04:50: Phosphorus 2.7 05/20/19 04:50: Sodium 134 L, Potassium 4.1, Chloride 104, Carbon Dioxide 21 L, Anion Gap 13, BUN 22, Creatinine 0.64 L, Estimated GFR (MDRD) Greater than 90, Glucose 186 H, Calcium 8.5, Total Bilirubin 1.4 H, AST 44 H, ALT 49, Alkaline Phosphatase 102, Serum Total Protein 5.2 L, Albumin 2.9 L, Globulin 2.3 L, Albumin/Globulin Ratio 1.3 05/20/19 04:50: WBC 8.1, RBC 3.89 L, Hgb 11.8 L, Hct 33.9 L, MCV 87.1, MCH 30.3 , MCHC 34.8, RDW 12.2, Plt Count 175, MPV 7.3 L, Neutrophils % (Manual) 92 H, Band Neuts % (Manual) 5, Lymphocytes % (Manual) 1 L, Monocytes % (Manual) 2, Hypochromia SLIGHT = 6-15 cells, Plt Morphology Comment Appears Adequate 05/19/19 22:29: POC Glucose 133 H 05/19/19 15:53: POC Glucose 168 H 05/19/19 10:02: POC Glucose 170 H A/P - Problem (1) Aspiration into airway Current Visit: Yes Code(s): T17.908A - UNSP FB IN RESP TRACT, PART UNSP CAUSING OTH INJURY, INIT Status: Acute (2) Acute hypoxemic respiratory failure Current Visit: Yes Code(s): J96.01 - ACUTE RESPIRATORY FAILURE WITH HYPOXIA Status: Acute (3) N&V (nausea and vomiting) Current Visit: Yes Code(s): R11.2 - NAUSEA WITH VOMITING, UNSPECIFIED Status : Acute Qualifiers: Vomiting Intractability: intractable (4) H/O malignant neoplasm of stomach Current Visit: Yes Code(s): Z85.028 - PERSONAL HISTORY OF OTHER MALIGNANT NEOPLASM OF STOMACH Status: Chronic - Plan Plan: 1. CT brain stat 2. limit meds 3. discussed with family, he is a DNAR, he voiced this to me and his
--- NOTE | 2019-05-20 08:47 | CT ---
Head CT with and without IV contrast, 05/20/2019: COMPARISON: None HISTORY: Altered mental status, history of gastric cancer, assess for metastatic disease TECHNIQUE: Axial CT imaging at 5 mm intervals from vertex through skull base with and without IV cont rast FINDINGS: The imaged paranasal sinuses/mastoid air cells are well aerated. No displaced calvarial fra cture is seen. Noncontrast enhanced head CT demonstrates no intracranial hemorrhage, midline shift, mass effect, or ventricular enlargement. The postcontrast imaging demonstrates no abnormal enhancement within the brain parenchyma. IMPRESSION: Unremarkable contrast enhanced head CT as detailed above.
[2019-05-20] MEDS: Heparin 5,000 UNITS/ML VIAL SC SCH ×2 (09:22→21:23)
--- NOTE | 2019-05-20 10:15 | PRG ---
DATE OF SERVICE: 05/20/2019 SUBJECTIVE: This morning, he was more encephalopathic, went for a CT of his head, but when he arrived back, he is back to his baseline. Awake, alert, and responsive. Moves all extremities. Denies any pain or difficulty breathing. He is extubated, appears to be in no distress. OBJECTIVE: VITAL SIGNS: Blood pressure , pulse 120, respiratory rate 32. I's and O's 3523 in and . CHEST: Decreased breath sounds. No wheezing. CARDIAC: Normal S1 and S2. No gallops. ABDOMEN: No masses. ASSESSMENT: Metastatic gastric cancer with ascites, pleural effusion, respiratory failure, and encephalopathy. PLAN: Continue comfort care. I am told he is being made a DNR as per Oncology. We will follow. Job ID: [id number]
[2019-05-20] MEDS: HumaLOG 300 UNITS/3 ML VIAL SC PRN ×2 (12:21→21:26)
[2019-05-20] MEDS: Aspirin 81 mg Enteric Coated Tablet PO SCH (12:26)
[2019-05-20] MEDS: Metoprolol Tartrate 25 MG TAB PO SCH ×2 (12:26→21:23)
[2019-05-20] MEDS: Senokot S 8.6-50 MG TAB PO SCH ×2 (12:27→21:23)
[2019-05-20] MEDS: Methylnaltrexone 12 MG/0.6 ML VIAL SC SCH (16:46)
[2019-05-20] MEDS: D5W-AA 4.25% with LYTES 1,000 ML IV SCH (17:25)
--- NOTE | 2019-05-20 18:13 | PDOC.HOSPP ---
- Subjective Encounter Date: 05/20/19 Encounter Time: 15:00 Subjective: is sitting in chair, has mittens put on him as he tried pull out ng tube/hernandez not fully oriented, but responds to verbal stimuli - Objective Vital Signs & Weight: Vital Signs (12 hours) Temp Pulse Pulse Pulse Pulse Resp BP 05/20/19 16:00 98.1 F 05/20/19 15:50 110 H 120 H 138 H 124/85 05/20/19 13:23 119 H 26 H 05/20/19 12:00 98.0 F 05/20/19 08:00 98.6 F 05/20/19 06:59 128 H 32 H BP Pulse Ox 05/20/19 16:00 05/20/19 15:50 117/92 H 05/20/19 13:23 100 05/20/19 12:00 05/20/19 08:00 95 05/20/19 06:59 100 Weight Admit Weight 201 lb 11.2 oz Weight 203 lb 11.314 oz Most Recent Monitor Data Heart Rate from ECG 106 NIBP 116/85 NIBP BP-Mean 95 Respiration from ECG 19 SpO2 94 I&O: 05/19/19 05/20/19 05/21/19 06:59 06:59 06:59 Intake Total 3523 3985 Output Total 0855 1206 699 Balance 1747 1834 -546 Result Diagrams: 05/20/19 04:50 05/20/19 04:50 Additional Labs: Accuchecks 05/20/19 05/20/19 05/20/19 17:15 12:10 04:57 POC Glucose 150 H 225 H 163 H 05/19/19 22:29 POC Glucose 133 H Hospitalist ROS - Medication Medications: Active Medications Generic Name Dose Route Start Last Admin Trade Name Freq PRN Reason Stop Dose Admin Albuterol/Ipratropium 3 ml 05/12/19 13:00 05/20/19 13:23 Duoneb NEB 3 ml [id number] ANDRÉS Administration Aspirin 81 mg 05/18/19 09:00 05/20/19 12:26 Ecotrin PO Not Given DAILY ANDRÉS Baclofen 10 mg 05/10/19 11:58 05/10/19 13:55 Lioresal PO 10 mg TIDPRN PRN Administration Hiccups Clonidine 0.1 mg 05/17/19 16:00 05/17/19 15:25 Mywwwble-Qhc-7 Patch TD 0.1 mg Q7DAYS ANDRÉS Administration Heparin Sodium (Porcine) 5,000 units 05/14/19 09:00 05/20/19 09:22 Heparin SC 5,000 units BID ANDRÉS Administration Piperacillin Sod/Tazobactam 100 mls @ 200 mls/hr 05/12/19 09:00 05/20/19 16: 39 Sod 3.375 gm/ Sodium Chloride IVPB 100 mls 0300,0900,1500,2100 ANDRÉS Administration Potassium Phosphate 9 mmol/ 103 mls @ 25.75 mls/hr 05/14/19 09:03 05/14/19 09 :50 Sodium Chloride IVPB 103 mls ASDIR PRN Administration Phosphate 1.0-1.8 Norepinephrine Bitartrate 8 mg 250 mls @ 0 mls/hr 05/14/19 14:03 05/14/19 14: 13 / Dextrose/Water IVPB 250 mls INF PRN Administration TO MAINTAIN MAP > 65 Protocol As Directed Amino Acids/Electrolytes/Dextrose 1,000 mls @ 125 mls/hr 05/20/19 16:00 05/20 17:25 Clinimix E 4.25/5 IV 1,000 mls .Q8H ANDRÉS Administration Insulin Human Lispro 0 units 05/10/19 01:59 05/20/19 12:21 Humalog SC 3 unit .MILD SLIDING SCALE PRN Administration Mild Correctional Scale Methylnaltrexone [place] 12 mg 05/20/19 16:00 05/20/19 16:46 Relistor SC 12 mg Q2D@1600 ANDRÉS Administration Metoprolol Tartrate 12.5 mg 05/17/19 21:00 05/20/19 12:26 Lopressor PO Not Given BID ANDRÉS Ondansetron HCl 4 mg 05/10/19 20:27 05/20/19 03:37 Zofran SLOW IVP 4 mg Q4H PRN Administration Nausea/Vomiting Pantoprazole Sodium 40 mg 05/18/19 09:00 05/20/19 12:26 Protonix PO Not Given DAILY [facility] Senna/Docusate Sodium 1 tab 05/15/19 21:00 05/20/19 12:27 Senokot S PO Not Given BID ANDRÉS - Exam General Appearance: awake alert, ill appearing Eye: PERRL, anicteric sclera ENT: no oropharyngeal lesions, dry oral mucosa Neck: supple, no JVD Heart: RRR, no murmur Respiratory: no wheezes, no rales Gastrointestinal: soft, non-tender, normal bowel sounds Extremities: no cyanosis, 1+ LE edema Neurological: cranial nerve grossly intact, no focal deficits Hosp A/P (1) Acute respiratory failure with hypoxia and hypercapnia Code(s): J96.01 - ACUTE RESPIRATORY FAILURE WITH HYPOXIA; J96.02 - ACUTE RESPIRATORY FAILURE WITH HYPERCAPNIA Status: Resolved (2) Acute metabolic encephalopathy Code(s): G93.41 - METABOLIC ENCEPHALOPATHY Status: Acute (3) FTT (failure to thrive) in adult Status: Chronic (4) Aspiration pneumonia Code(s): J69.0 - PNEUMONITIS DUE TO INHALATION OF FOOD AND VOMIT Status: Acute Qualifiers: Aspiration pneumonia type: due to regurgitated food Laterality: bilateral (5) Moderate protein-calorie malnutrition Code(s): E44.0 - MODERATE PROTEIN-CALORIE MALNUTRITION Status: Acute (6) Sepsis Code(s): A41.9 - SEPSIS, UNSPECIFIED ORGANISM Status: Resolved Qualifiers: Sepsis acute organ dysfunction status: with acute organ dysfunction Severe sepsis acute organ dysfunction type: acute respiratory failure Severe sepsis shock status: without septic shock (7) DM2 (diabetes mellitus, type 2) Status: Chronic Qualifiers: Diabetes mellitus intermediate card tender insulin use: without half-way use (8) H/O malignant neoplasm of stomach Code(s): Z85.028 - PERSONAL HISTORY OF OTHER MALIGNANT NEOPLASM OF STOMACH Status: Chronic (9) HTN (hypertension) Code(s): I10 - ESSENTIAL (PRIMARY) HYPERTENSION Status: Chronic Qualifiers: Hypertension type: essential hypertension Qualified Code(s): I10 - Essential (primary) hypertension - Plan h/o gastric adenocarcinoma with peritoneal metastasis extubated 05/17/2019 continue asp, lopressor, clonidine tts, zosyn till . hemostable prognosis guarded PT/OT, speech therapy, he failed swallow eval, is on ng feeding echo showed ef of 65% with moderate rv size
--- NOTE | 2019-05-20 18:51 | PRG ---
DATE OF SERVICE: 05/20/2019 SUBJECTIVE: Unfortunately, Mr. Ernandez had worsening mental status this morning. He underwent urgent CT of the head, which showed no acute abnormalities. His mental status continues to wax and wane. He also unfortunately had another vomiting episode. Nasogastric tube was placed with 500 mL of bilious fluid suctioned out. He has not had any bowel movements today, though he was able to get up and ambulate with assistance earlier. OBJECTIVE: VITAL SIGNS: Pulse 106, blood pressure 116/85, temperature 98.1, and 94% oxygen saturation on room air. GENERAL: No acute distress. Nasogastric tube back in place. He is able to answer some questions appropriately. HEART: Regular rate and rhythm. LUNGS: Clear to auscultation bilaterally. ABDOMEN: Moderate distention, not tense, dull to percussion. Bowel sounds are hypoactive, but present. EXTREMITIES: No peripheral edema. LABORATORY STUDIES: WBC 8.1, hemoglobin 11.8, platelets 175. Sodium 134, potassium 4.1, BUN 22, creatinine 0.64, glucose 150, phosphorus 2.7. Total bilirubin 1.4, alkaline phosphatase 102, AST 44, and ALT 49. ASSESSMENT AND PLAN: 1. Ileus, multifactorial, secondary to abdominal burden of malignancy as well as ascites, and polypharmacy including opioid medications. The patient will continue to receive Relistor 12 mg subcu every couple of days. If he were able to resume oral intake, could switch to 150 mg p.o. daily. Unfortunately, the patient really has not had resumption of bowel function over the past week, and given the burden of his disease, I continue to think it is unlikely that he is going to be able to meet his nutritional needs to p.o. intake in the future. He is going to have to continue on parenteral nutrition. Nasogastric tube is back in place for now. Ambulate as much as possible. 2. Oropharyngeal dysphagia. The patient has not done well with speech therapy evaluation in the past couple of days. Hopefully, this is more of a function of ICU delirium. He is not a candidate for PEG tube placement due to his metastatic gastric adenocarcinoma with peritoneal carcinomatosis. Overall prognosis remains very poor. I discussed the case with Dr. Whelan today as well. Job ID: [id number]
[2019-05-21] MEDS: D5W-AA 4.25% with LYTES 1,000 ML IV SCH ×4 (01:54→20:03)
[2019-05-21] MEDS: Piperacillin/Tazobactam 3.375 GM in Sodium Chloride 0.9% 100 ML IVPB SCH (03:03)
[2019-05-21] MEDS: HumaLOG 300 UNITS/3 ML VIAL SC PRN ×2 (03:42→17:43)
[2019-05-21 04:34] LABS: Band 14 % (5-11); Hemoglobin 11.4 g/dL (14.0-18.0); Lymphocytes 9 % (21-51); MDiff Complete? YES; Mean Corpuscular HGB CONC 34.8 g/dL (32.0-36.0); Mean Corpuscular Hemoglobin 30.3 pg (27.0-31.0); Mean Platelet Volume 7.7 fL (7.4-10.4); Monocytes 4 % (0-10); Neutrophil 73 % (42-75); Platelet Count 174 thou/uL (130-400); Platelet Morphology Comment Appears Adequate; RBC Distribution Width 12.2 % (11.5-14.5); Red Blood Cell (RBC) Count 3.75 mill/uL (4.70-6.10); White Blood Cell (WBC) Count 8.3 thou/uL (4.8-10.8)
[2019-05-21 04:47] LABS: ALT (SGPT) 49 U/L (8-55); AST (SGOT) 30 U/L (5-34); Albumin 2.9 g/dL (3.4-4.8); Alkaline Phosphatase 90 U/L (40-110); Anion Gap 12 mmol/L (10-20); BUN (Urea Nitrogen) 26 mg/dL (8.4-25.7); Bilirubin, Total 1.2 mg/dL (0.2-1.2); Calc. Creatinine Clearance 148 mL/min (70-130); Calcium 8.3 mg/dL (7.8-10.44); Carbon Dioxide 22 mmol/L (23-31); Chloride 103 mmol/L (98-107); Estimated GFR-MDRD Greater than 90; Globulin 2.2 g/dL (2.4-3.5); Glucose 185 mg/dL (80-115); Potassium 4.4 mmol/L (3.5-5.1); Protein, Total 5.1 g/dL (5.8-8.1); Sodium 133 mmol/L (136-145)
--- NOTE | 2019-05-21 08:07 | PDOC.MOPN ---
Interval History: thinking more clearly, oriented x3, wants to go home. no pain. he did vomit once overnight with NGT in - Vital Signs Vital Signs: Vital Signs (12 hours) Temp Pulse Resp Pulse Ox 05/21/19 07:33 97.7 F 05/21/19 06:43 108 H 24 H 100 05/21/19 04:00 98.4 F 05/21/19 00:00 98.6 F 05/20/19 23:10 112 H 20 100 Weight Admit Weight 201 lb 11.2 oz Weight 209 lb 7.026 oz Most Recent Monitor Data Heart Rate from ECG 111 NIBP 116/77 NIBP BP-Mean 90 Respiration from ECG 29 SpO2 99 - Physical Exam General: Alert HEENT: Atraumatic Lungs: Clear to auscultation Cardiovascular: Regular rate Abdomen: Other (distended) Extremities: No clubbing Neurological: Normal gait, Normal tone Psych/Mental Status: Mental status NL - Labs Result Diagrams: 05/21/19 03:40 05/21/19 03:40 Lab results: Laboratory Results - last 24 hr 05/21/19 03:42: POC Glucose 180 H 05/21/19 03:40: Phosphorus 3.0 05/21/19 03:40: Sodium 133 L, Potassium 4.4, Chloride 103, Carbon Dioxide 22 L, Anion Gap 12, BUN 26 H, Creatinine 0.66 L, Estimated GFR (MDRD) Greater than 90 , Glucose 185 H, Calcium 8.3, Total Bilirubin 1.2, AST 30, ALT 49, Alkaline Phosphatase 90, Serum Total Protein 5.1 L, Albumin 2.9 L, Globulin 2.2 L, Albumin/Globulin Ratio 1.3 05/21/19 03:40: WBC 8.3, RBC 3.75 L, Hgb 11.4 L, Hct 32.6 L, MCV 87.0, MCH 30.3 , MCHC 34.8, RDW 12.2, Plt Count 174, MPV 7.7, Neutrophils % (Manual) 73, Band Neuts % (Manual) 14 H, Lymphocytes % (Manual) 9 L, Monocytes % (Manual) 4, Plt Morphology Comment Appears Adequate 05/20/19 21:28: POC Glucose 199 H 05/20/19 17:15: POC Glucose 150 H 05/20/19 12:10: POC Glucose 225 H A/P - Problem (1) Aspiration into airway Current Visit: Yes Code(s): T17.908A - UNSP FB IN RESP TRACT, PART UNSP CAUSING OTH INJURY, INIT Status: Acute (2) Acute hypoxemic respiratory failure Current Visit: Yes Code(s): J96.01 - ACUTE RESPIRATORY FAILURE WITH HYPOXIA Status: Acute (3) N&V (nausea and vomiting) Current Visit: Yes Code(s): R11.2 - NAUSEA WITH VOMITING, UNSPECIFIED Status : Acute Qualifiers: Vomiting Intractability: intractable (4) H/O malignant neoplasm of stomach Current Visit: Yes Code(s): Z85.028 - PERSONAL HISTORY OF OTHER MALIGNANT NEOPLASM OF STOMACH Status: Chronic - Plan Plan: 1. will discuss with family, his biggest problem is he is reliant on NGT. Consider another palliative paracentesis 2. possibly discuss hospice, he may nee dlong term NGT to suction, could consider palliative G tube drain 3. pain wel lcontrolled 4. DNAR 5. consider transfer to onc if ok with ICU team
--- NOTE | 2019-05-21 08:55 | PRG ---
DATE OF SERVICE: 05/21/2019 SUBJECTIVE: This morning, he is awake, alert, and responsive. He is less short of breath. Abdomen is still quite distended. OBJECTIVE: VITAL SIGNS: Saturations are 98 on room air, pulse 108, respiratory rate 24, and blood pressure 116/75. CHEST: Decreased breath sounds. No wheezing. CARDIAC: Sinus tach. ABDOMEN: Distended. LABORATORY DATA: Sodium 133, otherwise lytes are normal. ASSESSMENT AND PLAN: Abdominal peritonitis, respiratory failure, and severe deconditioning. Comfort care at the time being. He is unable to swallow anything by mouth. Otherwise, we can switch him over to oral antibiotics. He is a DNR. He can be transferred to the oncology floor. Job ID: [id number]
[2019-05-21] MEDS: Aspirin 81 mg Enteric Coated Tablet PO SCH (11:30)
[2019-05-21] MEDS: Metoprolol Tartrate 25 MG TAB PO SCH (11:30)
[2019-05-21] MEDS: Ondansetron PF 4 MG/2 ML Vial SLOW IVP PRN (11:35)
--- NOTE | 2019-05-21 11:37 | PDOC.HOSPP ---
- Subjective Encounter Date: 05/21/19 Encounter Time: 11:00 Subjective: awake, at bedside responds to verbal stimuli not fully oriented has ng tube to suction - Objective Vital Signs & Weight: Vital Signs (12 hours) Temp Pulse Resp BP Pulse Ox 05/21/19 11:09 98.0 F 114 H 18 125/81 93 L 05/21/19 08:00 103.1 F H 05/21/19 07:35 99 05/21/19 07:33 97.7 F 05/21/19 06:43 108 H 24 H 100 05/21/19 04:00 98.4 F 05/21/19 00:00 98.6 F Weight Admit Weight 201 lb 11.2 oz Weight 209 lb 7.026 oz Most Recent Monitor Data Heart Rate from ECG 122 NIBP 141/95 NIBP BP-Mean 110 Respiration from ECG 44 SpO2 99 I&O: 05/20/19 05/21/19 05/22/19 06:59 06:59 06:59 Intake Total 3985 2268 639.1 Output Total 1205 1430 220 Balance 2780 838 419.1 Result Diagrams: 05/21/19 03:40 05/21/19 03:40 Additional Labs: Accuchecks 05/21/19 05/21/19 05/20/19 10:36 03:42 21:28 POC Glucose 169 H 180 H 199 H 05/20/19 05/20/19 17:15 12:10 POC Glucose 150 H 225 H Hospitalist ROS - Medication Medications: Active Medications Generic Name Dose Route Start Last Admin Trade Name Reggieq PRN Reason Stop Dose Admin Albuterol/Ipratropium 3 ml 05/12/19 13:00 05/21/19 06:43 Duoneb NEB 3 ml [id number] ANDRÉS Administration Aspirin 81 mg 05/18/19 09:00 05/20/19 12:26 Ecotrin PO Not Given DAILY ANDRÉS Clonidine 0.1 mg 05/17/19 16:00 05/17/19 15:25 Durmtuum-Kjm-5 Patch TD 0.1 mg Q7DAYS ANDRÉS Administration Heparin Sodium (Porcine) 5,000 units 05/14/19 09:00 05/20/19 21:23 Heparin SC 5,000 units BID ANDRÉS Administration Potassium Phosphate 9 mmol/ 103 mls @ 25.75 mls/hr 05/14/19 09:03 05/14/19 09 :50 Sodium Chloride IVPB 103 mls ASDIR PRN Administration Phosphate 1.0-1.8 Norepinephrine Bitartrate 8 mg 250 mls @ 0 mls/hr 05/14/19 14:03 05/14/19 14: 13 / Dextrose/Water IVPB 250 mls INF PRN Administration TO MAINTAIN MAP > 65 Protocol As Directed Amino Acids/Electrolytes/Dextrose 1,000 mls @ 125 mls/hr 05/20/19 16:00 05/21 01:54 Clinimix E 4.25/5 IV 1,000 mls .Q8H ANDRÉS Administration Insulin Human Lispro 0 units 05/10/19 01:59 05/21/19 03:42 Humalog SC 2 unit .MILD SLIDING SCALE PRN Administration Mild Correctional Scale Methylnaltrexone [place] 12 mg 05/20/19 16:00 05/20/19 16:46 Relistor SC 12 mg Q2D@1600 ANDRÉS Administration Metoprolol Tartrate 12.5 mg 05/17/19 21:00 05/20/19 21:23 Lopressor PO Not Given BID [facility] Ondansetron HCl 4 mg 05/10/19 20:27 05/20/19 03:37 Zofran SLOW IVP 4 mg Q4H PRN Administration Nausea/Vomiting Pantoprazole Sodium 40 mg 05/18/19 09:00 05/20/19 12:26 Protonix PO Not Given DAILY [facility] Senna/Docusate Sodium 1 tab 05/15/19 21:00 05/20/19 21:23 Senokot S PO Not Given BID [facility] - Exam General Appearance: awake alert Eye: PERRL, anicteric sclera ENT: no oropharyngeal lesions, dry oral mucosa Neck: supple, no JVD Heart: no murmur, no gallops Respiratory: no wheezes, no rales Gastrointestinal: soft, non-tender, normal bowel sounds, distended Extremities: no cyanosis, 1+ LE edema Neurological: cranial nerve grossly intact, no focal deficits Hosp A/P (1) Acute respiratory failure with hypoxia and hypercapnia Code(s): J96.01 - ACUTE RESPIRATORY FAILURE WITH HYPOXIA; J96.02 - ACUTE RESPIRATORY FAILURE WITH HYPERCAPNIA Status: Resolved (2) Acute metabolic encephalopathy Code(s): G93.41 - METABOLIC ENCEPHALOPATHY Status: Acute (3) FTT (failure to thrive) in adult Status: Chronic (4) Aspiration pneumonia Code(s): J69.0 - PNEUMONITIS DUE TO INHALATION OF FOOD AND VOMIT Status: Acute Qualifiers: Aspiration pneumonia type: due to regurgitated food Laterality: bilateral (5) Moderate protein-calorie malnutrition Code(s): E44.0 - MODERATE PROTEIN-CALORIE MALNUTRITION Status: Acute (6) Sepsis Code(s): A41.9 - SEPSIS, UNSPECIFIED ORGANISM Status: Resolved Qualifiers: Sepsis acute organ dysfunction status: with acute organ dysfunction Severe sepsis acute organ dysfunction type: acute respiratory failure Severe sepsis shock status: without septic shock (7) DM2 (diabetes mellitus, type 2) Status: Chronic Qualifiers: Diabetes mellitus residential insulin use: without long term care pharmacist use (8) H/O malignant neoplasm of stomach Code(s): Z85.028 - PERSONAL HISTORY OF OTHER MALIGNANT NEOPLASM OF STOMACH Status: Chronic (9) HTN (hypertension) Code(s): I10 - ESSENTIAL (PRIMARY) HYPERTENSION Status: Chronic Qualifiers: Hypertension type: essential hypertension Qualified Code(s): I10 - Essential (primary) hypertension - Plan h/o gastric adenocarcinoma with peritoneal metastasis extubated 05/17/2019 continue asp, lopressor if allowed to take orally, clonidine tts, zosyn till . hemostable prognosis guarded PT/OT, speech therapy, he failed swallow eval, is on ng suction echo showed ef of 65% with moderate rv size Possible paracentesis for comfort, d/w at bedside family aware of current situation.
[2019-05-21] MEDS: Senokot S 8.6-50 MG TAB PO SCH ×2 (11:54→20:34)
[2019-05-21] MEDS: Heparin 5,000 UNITS/ML VIAL SC SCH ×2 (12:00→20:33)
[2019-05-21 12:52] LABS: INR-International Normal Ratio 1.2; PTT 25.6 SEC (22.9-36.1); Prothrombin Time 15.4 SEC (12.0-14.7)
--- NOTE | 2019-05-21 13:57 | ULT ---
Ultrasound-guided paracentesis: 05/21/2019 HISTORY: Symptomatic ascites FINDINGS: Informed consent obtained prior to the procedure. Preprocedural imaging demonstrated signif icant ascites throughout the abdomen and pelvis. Mid right abdomenprepped and draped in normal sterile fashion and anesthetized with 1% buffered lidoc judah. With direct sonographic guidance, 5 [place] Yueh catheter is advanced into the ascites and removal of the stylet yielded yellow fluid. 4.1 L were removed. The patient tolerated the procedure well. No postprocedural complications. IMPRESSION: Successful ultrasound-guided paracentesis yielding 4.1 L of yellow fluid.
--- NOTE | 2019-05-21 15:31 | PRG ---
DATE OF SERVICE: 05/21/2019 SUBJECTIVE: Mr. Ernandez had another episode of emesis this morning despite a nasogastric tube. It has been placed back on low intermittent suction. He is not having any abdominal discomfort. He received another therapeutic paracentesis earlier today of 4.1 L and is feeling a bit better. Stool output remains minimal. He has been transferred out of the ICU. OBJECTIVE: VITAL SIGNS: Temperature 98.0, pulse 102, blood pressure 125/81, 95% oxygen saturation on room air. GENERAL: In no acute distress. HEART: Regular rate and rhythm. LUNGS: Clear to auscultation bilaterally. ABDOMEN: Mild distention, dull to percussion. Bowel sounds are present though hypoactive. EXTREMITIES: No peripheral edema. LABORATORY STUDIES: WBC 8.3, hemoglobin 11.4, platelets 174. INR 1.2. Sodium 133, potassium 4.4, BUN 26, creatinine 0.66, glucose 169, total bilirubin 1.2, alkaline phosphatase 90, AST 30, ALT 49, albumin 2.9. Note that fluid cytology from his 05/14/2019 paracentesis did show a few atypical cells suggestive of association with his gastric adenocarcinoma. ASSESSMENT AND PLAN: Ileus, multifactorial secondary to abdominal burden of malignancy as well as ascites and polypharmacy including opioid medications, failure to resolve over the past week. It is reasonable to continue the Relistor 12 mg subcutaneous injections every couple of days as well as the parental nutrition. It is unlikely that he will be able to meet his nutritional needs orally going forward. I would hesitate to consider attempted placement of any gastrostomy tube for palliation, given his gastric adenocarcinoma and malignant ascites. I think the potential for complications would be quite high. Nasogastric tube for decompression seems to be a better option. I understand that goals of care are still under discussion, and family may be moving toward more strictly palliative approach. Nothing further from a GI perspective. Please call anytime with questions or concerns. Job ID: [id number]
[2019-05-21] MEDS ORDERED: Lorazepam 2 MG/ML VIAL SLOW IVP PRN (17:39)
[2019-05-21] MEDS ORDERED: Sterile Water 10 ML VIAL FS PRN (17:39)
[2019-05-21] MEDS ORDERED: Ziprasidone 20 MG VIAL IM PRN (17:39)
[2019-05-21] MEDS ORDERED: Morphine 2 MG/ML SYRINGE SLOW IVP PRN (19:38)
[2019-05-21] MEDS ORDERED: HYDROcodone/Acetaminophen 7.5/325 mg Tablet PER TUBE PRN (21:36)
[2019-05-22] MEDS: D5W-AA 4.25% with LYTES 1,000 ML IV SCH ×4 (04:02→22:55)
[2019-05-22] MEDS ORDERED: Lorazepam 2 MG/ML VIAL SLOW IVP SCH (04:30)
[2019-05-22 04:57] LABS: ALT (SGPT) 40 U/L (8-55); AST (SGOT) 23 U/L (5-34); Albumin 2.7 g/dL (3.4-4.8); Alkaline Phosphatase 114 U/L (40-110); Anion Gap 13 mmol/L (10-20); BUN (Urea Nitrogen) 26 mg/dL (8.4-25.7); Bilirubin, Total 1.2 mg/dL (0.2-1.2); Calc. Creatinine Clearance 152 mL/min (70-130); Calcium 8.1 mg/dL (7.8-10.44); Carbon Dioxide 21 mmol/L (23-31); Chloride 102 mmol/L (98-107); Estimated GFR-MDRD Greater than 90; Globulin 2.3 g/dL (2.4-3.5); Glucose 210 mg/dL (80-115); Sodium 131 mmol/L (136-145)
[2019-05-22 05:22] LABS: Hemoglobin 12.2 g/dL (14.0-18.0); Mean Corpuscular HGB CONC 34.5 g/dL (32.0-36.0); Mean Corpuscular Volume 86.9 fL (78.0-98.0); Mean Platelet Volume 7.7 fL (7.4-10.4); Platelet Count 170 thou/uL (130-400); Red Blood Cell (RBC) Count 4.06 mill/uL (4.70-6.10); White Blood Cell (WBC) Count 10.8 thou/uL (4.8-10.8)
[2019-05-22 05:23] LABS: Band 6 % (5-11); Lymphocytes 11 % (21-51); MDiff Complete? YES; Monocytes 4 % (0-10); Neutrophil 79 % (42-75)
[2019-05-22] MEDS: HumaLOG 300 UNITS/3 ML VIAL SC PRN ×2 (05:58→19:20)
[2019-05-22] MEDS: Senokot S 8.6-50 MG TAB PO SCH ×2 (09:00→21:04)
--- NOTE | 2019-05-22 10:02 | PRG ---
DATE OF SERVICE: 05/22/2019 SUBJECTIVE: Campos Ernandez is a 64-year-old male, who remains encephalopathic. OBJECTIVE: VITAL SIGNS: Pulse of 130, temperature 97, blood pressure 120/84, respiratory rate 18. CHEST: Decreased breath sounds. No wheezing. CARDIAC: Sinus tach. ABDOMEN: Distended. LABORATORY DATA: Sodium is 131. ASSESSMENT: 1. Metastatic gastrointestinal cancer, recurrent ascites. 2. Respiratory failure. 3. Encephalopathy. PLAN: 1. I agree with comfort care. 2. Please call Pulmonary, if needed. Job ID: [id number]
--- NOTE | 2019-05-22 10:39 | PDOC.HOSPP ---
- Subjective Encounter Date: 05/22/19 Encounter Time: 10:00 Subjective: awake, not oriented follows some verbal stimuli talks which mostly doesn't make sense is not aggressive towards family or staff at bedside - Objective Vital Signs & Weight: Vital Signs (12 hours) Temp Pulse Resp BP Pulse Ox 05/22/19 08:39 130 H 18 95 05/22/19 07:46 97.5 F L 127 H 19 129/84 100 05/22/19 03:17 98.3 F 124 H 20 129/83 99 05/22/19 00:12 98 05/22/19 00:11 98 05/21/19 23:41 98.5 F 123 H 20 121/78 97 Weight Admit Weight 201 lb 11.2 oz Weight 204 lb 5 oz Most Recent Monitor Data Heart Rate from ECG 122 NIBP 141/95 NIBP BP-Mean 110 Respiration from ECG 44 SpO2 99 I&O: 05/21/19 05/22/19 05/23/19 06:59 06:59 06:59 Intake Total 2268 1514.1 1388 Output Total 1430 1305 400 Balance 838 209.1 988 Result Diagrams: 05/22/19 04:10 05/22/19 04:10 Additional Labs: Accuchecks 05/21/19 05/21/19 05/21/19 23:49 16:06 10:36 POC Glucose 171 H 199 H 169 H Hospitalist ROS - Medication Medications: Active Medications Generic Name Dose Route Start Last Admin Trade Name Freq PRN Reason Stop Dose Admin Hydrocodone Bitart/Acetaminophen 1 tab 05/21/19 21:36 05/22/19 01:20 [place] 7.5/325 PER TUBE 1 tab Q4H PRN Administration Mild Pain (1-3) Albuterol/Ipratropium 3 ml 05/12/19 13:00 05/22/19 08:39 Duoneb NEB 3 ml [id number] ANDRÉS Administration Clonidine 0.1 mg 05/17/19 16:00 05/17/19 15:25 Ovgzhafr-Gko-2 Patch TD 0.1 mg Q7DAYS ANDRÉS Administration Heparin Sodium (Porcine) 5,000 units 05/14/19 09:00 05/21/19 20:33 Heparin SC 5,000 units BID ANDRÉS Administration Amino Acids/Electrolytes/Dextrose 1,000 mls @ 125 mls/hr 05/22/19 04:00 05/22 04:02 Clinimix E 4.25/5 IV 1,000 mls .Q8H ANDRÉS Administration Insulin Human Lispro 0 units 05/10/19 01:59 05/22/19 05:58 Humalog SC 3 unit .MILD SLIDING SCALE PRN Administration Mild Correctional Scale Methylnaltrexone [place] 12 mg 05/20/19 16:00 05/20/19 16:46 Relistor SC 12 mg Q2D@1600 ANDRÉS Administration Ondansetron HCl 4 mg 05/10/19 20:27 05/21/19 11:35 Zofran SLOW IVP 4 mg Q4H PRN Administration Nausea/Vomiting Senna/Docusate Sodium 1 tab 05/15/19 21:00 05/21/19 20:34 Senokot S PO 1 tab BID ANDRÉS Administration Sodium Chloride 10 ml 05/17/19 15:55 05/22/19 05:11 Flush - Normal Saline IVF 10 ml PRN PRN Administration Saline Flush Hosp A/P (1) Acute respiratory failure with hypoxia and hypercapnia Code(s): J96.01 - ACUTE RESPIRATORY FAILURE WITH HYPOXIA; J96.02 - ACUTE RESPIRATORY FAILURE WITH HYPERCAPNIA Status: Resolved (2) Acute metabolic encephalopathy Code(s): G93.41 - METABOLIC ENCEPHALOPATHY Status: Acute (3) FTT (failure to thrive) in adult Status: Chronic (4) Aspiration pneumonia Code(s): J69.0 - PNEUMONITIS DUE TO INHALATION OF FOOD AND VOMIT Status: Acute (5) Moderate protein-calorie malnutrition Code(s): E44.0 - MODERATE PROTEIN-CALORIE MALNUTRITION Status: Acute (6) Sepsis Code(s): A41.9 - SEPSIS, UNSPECIFIED ORGANISM Status: Resolved (7) DM2 (diabetes mellitus, type 2) Status: Chronic (8) H/O malignant neoplasm of stomach Code(s): Z85.028 - PERSONAL HISTORY OF OTHER MALIGNANT NEOPLASM OF STOMACH Status: Chronic (9) HTN (hypertension) Code(s): I10 - ESSENTIAL (PRIMARY) HYPERTENSION Status: Chronic Qualifiers: Qualified Code(s): I10 - Essential (primary) hypertension - Plan Had paracentesis with removal of 4 lts yest. He got seroquel 50mg HS yesterday, will switch to 25mg bid and add klonopin 1mg HS dc duonebs, gets agitated after treatments per at bedside h/o gastric adenocarcinoma with peritoneal metastasis extubated 05/17/2019 continue asp, lopressor if allowed to take orally, clonidine tts, zosyn last dose today. hemostable prognosis guarded PT/OT, speech therapy, he failed swallow eval, is on ng suction echo showed ef of 65% with moderate rv size family aware of current situation. Likely hospice if his cognition and oral intake doesn't get better.
--- NOTE | 2019-05-22 10:41 | PDOC.PALCO ---
Palliative Care Consult - Consult Details Requesting Physician: Dr Baker Reason for Consult: goals of care, family support Family Members Present: and daughter mariam - Pertinent HPI 64 year old male with recent diagnosis of gastric cancer who received initial round of chemo. Presented to emergency room for emesis x three days, onset as he began second round of chemo. No alleviating factors. Denies abdominal pain, fever. Admitted for management of persistent emesis. Aspirated. Patient with continued decline during hospital stay, eventually intubated and was identified to have metastasis and ileus related to mass. Extubated and transferred to oncology unit, palliative care consult for assist with goals of care and family support. - Pertinent PMH Hypertension, Diabetes Mellitus II - Social History Smoking Status: Never smoker Smoking: no tobacco exposure Alcohol Use: none Drug Use History: none Living Situation: - Medications MAR Reviewed: Yes - Allergies Allergies/Adverse Reactions: Allergies Allergy/AdvReac Type Severity Reaction Status Date / Time meperidine [From Demerol] Allergy Verified 04/16/19 09:47 - Subjective Confused, non sensical speech. Ng to low suction, hernandez with dark clear urine. Denies any complaint, however secondary to confusion patient not reliable historian. ROS: 10 point review negative secondary to confusion and patient inability to reliably communicate. - Objective Vital Signs: Vital Signs - Most Recent Temp Pulse Resp BP Pulse Ox 97.5 F L 130 H 18 129/84 95 05/22/19 07:46 05/22/19 08:39 05/22/19 08:39 05/22/19 07:46 05/22/19 08:39 Palliative Performance Scale: 20 - Physical Exam Constitutional: confusion HEENT: moist MMs, EOMI Respiratory: no wheezing, unlabored breathing Deviation from normal: elevated heart rate with minimal movement Deviation from normal: tympani on percussion. no facial grimace with palpation Neurological: moves all 4 limbs Deviation from normal: Confused, non sensical speech - Problem List (1) Palliative care encounter Code(s): Z51.5 - ENCOUNTER FOR PALLIATIVE CARE Current Visit: Yes Status: Acute (2) Acute metabolic encephalopathy Code(s): G93.41 - METABOLIC ENCEPHALOPATHY Current Visit: Yes Status: Acute (3) Ileus Code(s): K56.7 - ILEUS, UNSPECIFIED Current Visit: Yes Status: Acute (4) Moderate protein-calorie malnutrition Code(s): E44.0 - MODERATE PROTEIN-CALORIE MALNUTRITION Current Visit: Yes Status: Acute - Plan/Recommendations Plan: Visited with and daughter in law at length. Discussed goal for patient based on disease trajectory and anticipated decline. Identified [facility] in network for patient insurance. *[facility] to evaluate for inpatient services *If appropriate family may consider in patient Hospice. *May consider taking patient home with hospice. *Keep NG in place to low suction to continue to promote comfort. *Teaching in relation to prevention of aspiration D Perlita sorter upholstery parts to continue to follow. Communicated with Dr Whelan and Roseann GOLDMAN Oncology [90] minutes spent on this encounter with >50% of the time in counseling and coordination of care. Thank you for this very appropriate consult.
[2019-05-22 10:54] VITALS: BMI 27.7
[2019-05-22] MEDS: Pantoprazole 40 MG VIAL IVP SCH (12:10)
[2019-05-22] MEDS: Heparin 5,000 UNITS/ML VIAL SC SCH ×2 (12:13→21:03)
--- NOTE | 2019-05-22 15:19 | PDOC.MOPN ---
Interval History: mumbling, confused. still no BM - Vital Signs Vital Signs: Vital Signs (12 hours) Temp Pulse Resp BP Pulse Ox 05/22/19 12:04 98.4 F 139 H 18 131/90 100 05/22/19 08:39 130 H 18 95 05/22/19 07:46 97.5 F L 127 H 19 129/84 100 Weight Admit Weight 201 lb 11.2 oz Weight 204 lb 5 oz Most Recent Monitor Data Heart Rate from ECG 122 NIBP 141/95 NIBP BP-Mean 110 Respiration from ECG 44 SpO2 99 - Physical Exam General: Other HEENT: Atraumatic, PERRLA, EOMI, Mucous membr. moist/pink Lungs: Clear to auscultation, Normal air movement Cardiovascular: Regular rate, Normal S1, Normal S2, No murmurs, Gallops, Rubs Abdomen: Other Extremities: No clubbing, No cyanosis, No edema, Normal pulses, No tenderness/ swelling Skin: No rashes, No breakdown, No significant lesion Neurological: Normal tone, Sensation intact, Other Psych/Mental Status: Other - Labs Result Diagrams: 05/22/19 04:10 05/22/19 04:10 Lab results: Laboratory Results - last 24 hr 05/22/19 10:38: POC Glucose 172 H 05/22/19 04:10: Phosphorus 3.0 05/22/19 04:10: Sodium 131 L, Potassium 5.0, Chloride 102, Carbon Dioxide 21 L, Anion Gap 13, BUN 26 H, Creatinine 0.66 L, Estimated GFR (MDRD) Greater than 90 , Glucose 210 H, Calcium 8.1, Total Bilirubin 1.2, AST 23, ALT 40, Alkaline Phosphatase 114 H, Serum Total Protein 5.0 L, Albumin 2.7 L, Globulin 2.3 L, Albumin/Globulin Ratio 1.2 05/22/19 04:10: WBC 10.8, RBC 4.06 L, Hgb 12.2 L, Hct 35.3 L, MCV 86.9, MCH 30.0 , MCHC 34.5, RDW 12.0, Plt Count 170, MPV 7.7, Neutrophils % (Manual) 79 H, Band Neuts % (Manual) 6, Lymphocytes % (Manual) 11 L, Monocytes % (Manual) 4 05/21/19 23:49: POC Glucose 171 H 05/21/19 16:06: POC Glucose 199 H Status: lab reviewed by me A/P - Problem (1) Acute hypoxemic respiratory failure Current Visit: Yes Code(s): J96.01 - ACUTE RESPIRATORY FAILURE WITH HYPOXIA Status: Acute (2) H/O malignant neoplasm of stomach Current Visit: Yes Code(s): Z85.028 - PERSONAL HISTORY OF OTHER MALIGNANT NEOPLASM OF STOMACH Status: Chronic - Plan Plan: Family meeting with HBV today poor prognosis Dr. Whelan adult basic education manager this weekend if needed.
[2019-05-22] MEDS: Methylnaltrexone 12 MG/0.6 ML VIAL SC SCH (19:18)
[2019-05-22] MEDS ORDERED: clonazePAM 0.5 MG TAB PO SCH (21:00)
[2019-05-23] MEDS: HumaLOG 300 UNITS/3 ML VIAL SC PRN (06:10)
[2019-05-23 06:20] LABS: Hemoglobin 12.1 g/dL (14.0-18.0); Mean Corpuscular HGB CONC 34.8 g/dL (32.0-36.0); Mean Corpuscular Hemoglobin 29.9 pg (27.0-31.0); Mean Platelet Volume 7.8 fL (7.4-10.4); Platelet Count 163 thou/uL (130-400); RBC Distribution Width 11.9 % (11.5-14.5); Red Blood Cell (RBC) Count 4.05 mill/uL (4.70-6.10)
[2019-05-23 06:26] LABS: Band 4 % (5-11); Lymphocytes 10 % (21-51); MDiff Complete? YES; Monocytes 2 % (0-10); Neutrophil 84 % (42-75); Nucleated RBC 1 % (0)
[2019-05-23 06:36] LABS: Phosphorus 3.3 mg/dL (2.3-4.7)
[2019-05-23 06:38] LABS: ALT (SGPT) 36 U/L (8-55); AST (SGOT) 22 U/L (5-34); Albumin 2.8 g/dL (3.4-4.8); Alkaline Phosphatase 101 U/L (40-110); Anion Gap 14 mmol/L (10-20); BUN (Urea Nitrogen) 29 mg/dL (8.4-25.7); Bilirubin, Total 1.1 mg/dL (0.2-1.2); Calc. Creatinine Clearance 136 mL/min (70-130); Calcium 8.5 mg/dL (7.8-10.44); Carbon Dioxide 19 mmol/L (23-31); Chloride 101 mmol/L (98-107); Estimated GFR-MDRD Greater than 90; Globulin 2.3 g/dL (2.4-3.5); Glucose 203 mg/dL (80-115); Potassium 5.3 mmol/L (3.5-5.1); Protein, Total 5.1 g/dL (5.8-8.1); Sodium 129 mmol/L (136-145)
[2019-05-23] MEDS: D5W-AA 4.25% with LYTES 1,000 ML IV SCH (07:45)
--- NOTE | 2019-05-23 07:45 | RAD ---
CHEST ONE VIEW: INDICATIONS: Wet breath sounds. COMPARISON: Prior exam dated 05/20/2019. FINDINGS: Central edema pattern, cardiomegaly, pulmonary vascular congestion and bilateral pleural effusions pe rsist. Gastrostomy tube and right-sided chest wall port are unchanged. No pneumothorax is evident. IMPRESSION: Stable examination. POS: BH
[2019-05-23] MEDS: Pantoprazole 40 MG VIAL IVP SCH (10:47)
[2019-05-23] MEDS: Heparin 5,000 UNITS/ML VIAL SC SCH (10:50)
[2019-05-23] MEDS: Senokot S 8.6-50 MG TAB PO SCH (11:01)
[2019-05-23] MEDS ORDERED: Scopolamine 1.5 mg/72 hour Patch TOP SCH ×2 (12:00→16:00)
[2019-05-23] MEDS ORDERED: Morphine 2 MG/ML SYRINGE SLOW IVP SCH (12:45)
[2019-05-23] MEDS ORDERED: Furosemide 20 MG/2 ML VIAL SLOW IVP SCH (12:45)
--- NOTE | 2019-05-23 12:47 | PDOC.HOSPP ---
- Subjective Encounter Date: 05/23/19 Subjective: Pt seen currently in distress and looks uncomfortable , family in the room - Objective Vital Signs & Weight: Vital Signs (12 hours) Temp Pulse Resp BP Pulse Ox 05/23/19 10:29 100.5 F H 05/23/19 08:00 138 H 22 H 100 05/23/19 07:33 100.2 F H 136 H 24 H 128/87 100 05/23/19 03:43 98.4 F 135 H 24 H 127/85 100 05/23/19 03:07 97 Weight Admit Weight 201 lb 11.2 oz Weight 207 lb 8 oz Most Recent Monitor Data Heart Rate from ECG 122 NIBP 141/95 NIBP BP-Mean 110 Respiration from ECG 44 SpO2 99 I&O: 05/22/19 05/23/19 05/24/19 06:59 06:59 06:59 Intake Total 1514.1 1388 1500 Output Total 1305 1900 1000 Balance 209.1 -512 500 Result Diagrams: 05/23/19 05:46 05/23/19 05:46 Additional Labs: Accuchecks 05/23/19 05/22/19 05/22/19 05:31 23:40 18:53 POC Glucose 191 H 175 H 243 H Hospitalist ROS - Review of Systems ROS unobtainable: due to mental status Respiratory: reports: shortness of breath - Medication Medications: Active Medications Generic Name Dose Route Start Last Admin Trade Name Freq PRN Reason Stop Dose Admin Hydrocodone Bitart/Acetaminophen 1 tab 05/21/19 21:36 05/22/19 01:20 [place] 7.5/325 PER TUBE 1 tab Q4H PRN Administration Mild Pain (1-3) Albuterol/Ipratropium 3 ml 05/12/19 13:00 05/23/19 08:00 Duoneb NEB 3 ml [id number] ANDRÉS Administration Clonazepam 1 mg 05/22/19 21:00 05/22/19 21:04 Klonopin PO 1 mg HS ANDRÉS Administration Clonidine 0.1 mg 05/17/19 16:00 05/17/19 15:25 [id number] Patch TD 0.1 mg Q7DAYS ANDRÉS Administration Heparin Sodium (Porcine) 5,000 units 05/14/19 09:00 05/23/19 10:50 Heparin SC 5,000 units BID ANDRÉS Administration Amino Acids/Electrolytes/Dextrose 1,000 mls @ 125 mls/hr 05/22/19 04:00 05/23 07:45 Clinimix E 4.25/5 IV 1,000 mls .Q8H ANDRÉS Administration Insulin Human Lispro 0 units 05/10/19 01:59 05/23/19 06:10 Humalog SC 2 unit .MILD SLIDING SCALE PRN Administration Mild Correctional Scale Methylnaltrexone [place] 12 mg 05/20/19 16:00 05/22/19 19:18 Relistor SC 12 mg Q2D@1600 ANDRÉS Administration Ondansetron HCl 4 mg 05/10/19 20:27 05/21/19 11:35 Zofran SLOW IVP 4 mg Q4H PRN Administration Nausea/Vomiting Pantoprazole Sodium 40 mg 05/22/19 09:00 05/23/19 10:47 Protonix IVP 40 mg DAILY ANDRÉS Administration Quetiapine Fumarate 25 mg 05/22/19 21:00 05/23/19 11:01 Seroquel PO 25 mg BID ANDRÉS Administration Senna/Docusate Sodium 1 tab 05/15/19 21:00 05/23/19 11:01 Senokot S PO 1 tab BID ANDRÉS Administration Sodium Chloride 10 ml 05/17/19 15:55 05/23/19 10:49 Flush - Normal Saline IVF 10 ml PRN PRN Administration Saline Flush - Exam General Appearance: ill appearing Eye: anicteric sclera ENT: normocephalic atraumatic Neck: supple Heart: no gallops Respiratory: rales, wheezes Gastrointestinal: distended, diminished bowl sounds Extremities: no cyanosis Neurological - other findings: confused Psychiatric: somnolent, lethargic Hosp A/P - Plan Acute respiratory failure with hypoxia and hypercapnia due to possible aspiration pneumonia , CX ray possible congestion will give lasix 20 mg one dose Acute metabolic and toxic encephalopathy most likely multifactorial due to recent pneumonia /sepsis/underlying malignancy continue ro monitor Moderate protein-calorie malnutrition DM2 (diabetes mellitus, type 2) 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
[2019-05-23] MEDS ORDERED: Morphine 2 MG/ML SYRINGE SLOW IVP PRN ×2 (13:20→15:12)
[2019-05-23 13:32] VITALS: BP 91/58; TEMP 100.2
[2019-05-23] MEDS ORDERED: Lorazepam 2 MG/ML VIAL SLOW IVP PRN ×2 (14:11→15:12)
--- NOTE | 2019-05-23 14:25 | RAD ---
EXAM: XR Abdomen 1 View/KUB DATE: 05/23/2019 12:44 PM INDICATION: Abdominal distention COMPARISON: Prior exam dated May 14, 2019 FINDING: There is a gastric catheter projecting in the region of the gastric fundus. Bowel gas patte rn is unobstructed. Lung bases are clear. There is a temperature probe in the region of the bladder. There is scattered degenerative change. IMPRESSION:No definite acute abnormality
--- NOTE | 2019-05-23 15:30 | PDOC.MOPN ---
Interval History: more somnolent, struggling with secretions, not responding to voice - Vital Signs Vital Signs: Vital Signs (12 hours) Temp Pulse Resp BP Pulse Ox 05/23/19 13:12 131 H 28 H 93 L 05/23/19 13:00 100.2 F H 137 H 24 H 91/58 L 94 L 05/23/19 10:29 100.5 F H 05/23/19 08:00 138 H 22 H 100 05/23/19 07:33 100.2 F H 136 H 24 H 128/87 100 05/23/19 03:43 98.4 F 135 H 24 H 127/85 100 Weight Admit Weight 201 lb 11.2 oz Weight 207 lb 8 oz Most Recent Monitor Data Heart Rate from ECG 122 NIBP 141/95 NIBP BP-Mean 110 Respiration from ECG 44 SpO2 99 - Physical Exam General: Mild distress Lungs: Other (indio rales, secretions noted) Cardiovascular: Other (tachy) Psych/Mental Status: Other (not responsive) - Labs Result Diagrams: 05/23/19 05:46 05/23/19 05:46 Lab results: Laboratory Results - last 24 hr 05/23/19 05:46: Sodium 129 L, Potassium 5.3 H, Chloride 101, Carbon Dioxide 19 L , Anion Gap 14, BUN 29 H, Creatinine 0.72, Estimated GFR (MDRD) Greater than 90 , Glucose 203 H, Calcium 8.5, Total Bilirubin 1.1, AST 22, ALT 36, Alkaline Phosphatase 101, Serum Total Protein 5.1 L, Albumin 2.8 L, Globulin 2.3 L, Albumin/Globulin Ratio 1.2 05/23/19 05:46: WBC 10.0, RBC 4.05 L, Hgb 12.1 L, Hct 34.8 L, MCV 86.0, MCH 29.9 , MCHC 34.8, RDW 11.9, Plt Count 163, MPV 7.8, Neutrophils % (Manual) 84 H, Band Neuts % (Manual) 4 L, Lymphocytes % (Manual) 10 L, Monocytes % (Manual) 2, Nucleated RBCs # (Man) 1 H 05/23/19 05:45: Phosphorus 3.3 05/23/19 05:31: POC Glucose 191 H 05/22/19 23:40: POC Glucose 175 H 05/22/19 18:53: POC Glucose 243 H A/P - Problem (1) Aspiration into airway Current Visit: Yes Code(s): T17.908A - UNSP FB IN RESP TRACT, PART UNSP CAUSING OTH INJURY, INIT Status: Acute (2) Acute hypoxemic respiratory failure Current Visit: Yes Code(s): J96.01 - ACUTE RESPIRATORY FAILURE WITH HYPOXIA Status: Acute (3) N&V (nausea and vomiting) Current Visit: Yes Code(s): R11.2 - NAUSEA WITH VOMITING, UNSPECIFIED Status : Acute Qualifiers: Vomiting Intractability: intractable (4) H/O malignant neoplasm of stomach Current Visit: Yes Code(s): Z85.028 - PERSONAL HISTORY OF OTHER MALIGNANT NEOPLASM OF STOMACH Status: Chronic - Plan Plan: 1. increase scopolamine 2. increase morphine and ativan 3. DNAR, family at bedside and they understand we are proceeding only with comfort measures
[2019-05-23] MEDS ORDERED: Atropine Sulfate 1% Ophth Soln 5 ml Bottle FS PRN (16:17)
--- NOTE | 2019-05-23 22:17 | DIS ---
DATE OF ADMISSION: 05/10/2019 DATE OF DISCHARGE: 05/23/2019 DISCHARGE DIAGNOSES: 1. Acute hypoxemic hypercapnic respiratory failure, most likely secondary to possible aspiration pneumonia. 2. Acute metabolic toxic encephalopathy, multifactorial, possibly related to pneumonia, sepsis, underlying malignancy. 3. Sepsis most likely related to aspiration pneumonia. 4. Moderate protein-calorie malnutrition. 5. Stage IV gastric cancer. 6. Hypertension. 7. Diabetes mellitus. DIAGNOSTIC STUDIES: Labs on 05/23/2019; white blood cell 10, hemoglobin 12.1, and platelet 163. INR on 05/21/2019 was 1.2. Blood gas on 05/12, pH 7.30, pCO2 of 44, and pO2 of 77. Labs on admission, BNP unremarkable except anion gap of 19. LFTs normal. Respiratory culture, E. coli, Klebsiella pneumoniae, blood culture negative, ascitic fluid final culture negative. HOSPITAL COURSE: The patient, Oma Gasca, known case of stage IV gastric cancer, on chemotherapy, presented with nausea and vomiting and the patient admitted to floor later on transfer to ICU for acute hypoxemic hypercapnic respiratory failure secondary to respiration pneumonia. The patient been treated with antibiotics, intubated and been on pressors. The patient extubated and transferred to floor, however, the patient remained encephalopathic and baseline underlying stage 4 gastric cancer. The patient was placed on NG tube, placed on nutritional support, parenteral; however, due to declining condition, family opted DNR, DNI. Palliative was consulted and due to the patient's worsening condition, family opted comfort care. The patient on 05/23/2019, family at bedside, updated family. Job ID: [id number]
--- NOTE | 2019-05-25 21:47 | PQF ---
[employer] Technician Crystal Reports Winform [email or web address] CURRIE CELINE THURMAN MD [id number] CLINICAL DOCUMENTATION CLARIFICATION FORM: POST DISCHARGE Addendum to original discharge summary date: ____ Late entry note date: __ DATE: 05/26/2019 ATTN: CELINE THURMAN MD Please exercise your independent, professional judgment in responding to the clarification form. Clinical indicators are provided on the bottom of this form for your review Diagnosis: SEPSIS Present on Admission (POA): [ ] Yes [ ] No [ ] Unable to determine Coding guidelines require hospitals to identify whether a diagnosis was present on admission (POA) or not. To accurately assign the appropriate POA indicator, this information must be clearly documented within the medical record. CLINICAL INDICATORS - SIGNS / SYMPTOMS / LABS Severe Sepsis - Documented in Consultation note on 05/13 by Phyllis Rivas MD WBC 2.6 on 05/12 11.8 on 05/14 12.6 on 05/15 - Documented in Laboratory Results Pulse 116 and 118 on 05/10 - Documented in Vital and Signs RR 24 on 05/10 - Documented in Vital and Signs RISK FACTORS: HCAP 2/2 gross aspiration event - Documented in Consultation note on 05/13 by Phyllis Rivas MD Acute hypoxic respiratory failure - Documented in Consultation note on 05/13 by Phyllis Rivas MD Gastric cancer on chemotherapy - Documented in H&P on 05/10 by CELINE THURMAN MD TREATMENT: Empiric antibiotics directed at aspiration organisms will br intiated Zosyn - Documented in Consultation note on 05/13 by Phyllis Rivas MD Piperacillin 100 ml IVPB Q6H - Documented in Medication snapshot (This form is maintained as a part of the permanent medical record) 2014 [employer]. All Rights Reserved [employer] Crystal Reports Winform [email or web address] [not provided] [email or web address]
== END 2019-05-23 18:00 | disposition expired | DRG 987 ==
LOC: SCSER 22:18 → SURG B 05-10 00:07 → OBSVTOIN 05-10 00:07 → SURG B 05-10 01:13 → ONC 05-11 14:18 → CCU 05-12 07:44 → ONC 05-21 10:05
PROVIDERS: ADMIT Internal Medicine; ATTEND Internal Medicine
PROC: 0B9M8ZX Drainage of Bilateral Lungs, Via Natural or Artificial Opening Endoscopic, Diagnostic (ICD-10-PCS; principal; 2019-05-12)
PROC: 0BH17EZ Insertion of Endotracheal Airway into Trachea, Via Natural or Artificial Opening (ICD-10-PCS; 2019-05-12)
PROC: 5A1955Z Respiratory Ventilation, Greater than 96 Consecutive Hours (ICD-10-PCS; 2019-05-12)
PROC: 0W9G3ZZ Drainage of Peritoneal Cavity, Percutaneous Approach (ICD-10-PCS; 2019-05-21)
DX: R11.2 Nausea with vomiting, unspecified (principal); A41.89 Other specified sepsis; J69.0 Pneumonitis due to inhalation of food and vomit; J96.02 Acute respiratory failure with hypercapnia; J96.01 Acute respiratory failure with hypoxia; G92 Toxic encephalopathy; I21.A1 Myocardial infarction type 2; R65.20 Severe sepsis without septic shock; C16.9 Malignant neoplasm of stomach, unspecified; E44.0 Moderate protein-calorie malnutrition; E87.1 Hypo-osmolality and hyponatremia; J98.11 Atelectasis; J90 Pleural effusion, not elsewhere classified; E87.2 Acidosis; K56.7 Ileus, unspecified; R18.0 Malignant ascites; Z68.28 Body mass index [BMI] 28.0-28.9, adult; Z66 Do not resuscitate; Z51.5 Encounter for palliative care; E86.0 Dehydration; B96.20 Unspecified Escherichia coli [E. coli] as the cause of diseases classified elsewhere; B96.1 Klebsiella pneumoniae [K. pneumoniae] as the cause of diseases classified elsewhere; E83.39 Other disorders of phosphorus metabolism; I12.9 Hypertensive chronic kidney disease with stage 1 through stage 4 chronic kidney disease, or unspecified chronic kidney disease; E11.22 Type 2 diabetes mellitus with diabetic chronic kidney disease; N18.2 Chronic kidney disease, stage 2 (mild); R13.12 Dysphagia, oropharyngeal phase; R62.7 Adult failure to thrive
CPT/HCPCS: 36415; 36416; 49083; 70470; 71045; 71260; 74018; 74177; 80048; 80053; 82042; 82553; 82805; 82945; 83605; 83690; 83735; 84100; 84157; 84484; 85007; 85025; 85027; 85060; 85610; 85730; 87070; 87077; 87116; 87186; 87205; 87206; 89051; 90471; 90670; 93005; 93010; 93306; 94002; 94003; 94640; 94760; 96361; 96365; 96375; A4217; C9113; G0009; J0131; J1100; J1200; J1630; J1644; J1940; J2060; J2212; J2250; J2270; J2405; J2543; J2550; J2704; J2765; J3010; J3475; J3480; J3490; J7050; J7070; J7620; P9047; Q9967; S0028